=== PATIENT | male | born 1955 | race Caucasian/White ===

== ENCOUNTER 2020-02-23 06:07 | Outpatient (REF) | payer OTHER, SELFPAY ==
[2020-02-23 07:44] LABS: Cholesterol 227 mg/dL; HDL Cholesterol 43 mg/dL; LDL Cholesterol Calculated 160 mg/dl; Triglycerides 120 mg/dL
== END 2020-02-23 06:08 | disposition home or self-care (01) ==
LOC: HO.LAB 06:07
PROVIDERS: PCP Internal Medicine; Visit Provider Internal Medicine
DX: E78.5 Hyperlipidemia, unspecified (principal)
CPT/HCPCS: 80061

== ENCOUNTER 2020-05-22 06:23 | Outpatient (REF) | payer OTHER, SELFPAY ==
[2020-05-22 07:43] LABS: Cholesterol 240 mg/dL; HDL Cholesterol 41 mg/dL; LDL Cholesterol Calculated 174 mg/dl; Triglycerides 125 mg/dL
== END 2020-05-22 06:24 | disposition home or self-care (01) ==
LOC: HO.LAB 06:23
PROVIDERS: PCP Internal Medicine; Visit Provider Internal Medicine
DX: E11.9 Type 2 diabetes mellitus without complications (principal)
CPT/HCPCS: 36415; 80061

== ENCOUNTER 2020-07-01 13:45 | Outpatient (REF) | payer OTHER, SELFPAY ==
[2020-07-01 15:28] LABS: COVID-19 Test Negative (Negative)
== END 2020-07-01 13:46 | disposition home or self-care (01) ==
LOC: HO.LAB 13:45
PROVIDERS: Visit Provider Internal Medicine
DX: Z20.822 Contact with and (suspected) exposure to COVID-19 (principal)
CPT/HCPCS: 36415; 87635; C9803

== ENCOUNTER 2020-08-24 07:04 | Outpatient (REF) | payer OTHER, SELFPAY ==
[2020-08-24 08:07] LABS: Cholesterol 140 mg/dL; HDL Cholesterol 46 mg/dL; LDL Cholesterol Calculated 81 mg/dl; Triglycerides 65 mg/dL
== END 2020-08-24 07:05 | disposition home or self-care (01) ==
LOC: HO.LAB 07:04
PROVIDERS: PCP Internal Medicine; Visit Provider Internal Medicine
DX: E11.9 Type 2 diabetes mellitus without complications (principal)
CPT/HCPCS: 36415; 80061

== ENCOUNTER 2020-11-26 06:14 | Outpatient (REF) | payer OTHER, SELFPAY ==
[2020-11-26 08:33] LABS: Cholesterol 163 mg/dL; HDL Cholesterol 48 mg/dL; LDL Cholesterol Calculated 96 mg/dl; Triglycerides 99 mg/dL
== END 2020-11-26 06:15 | disposition home or self-care (01) ==
LOC: HO.LAB 06:14
PROVIDERS: PCP Internal Medicine; Visit Provider Internal Medicine
DX: E11.9 Type 2 diabetes mellitus without complications (principal)
CPT/HCPCS: 36415; 80061

== ENCOUNTER 2021-03-04 06:56 | Outpatient (REF) | payer OTHER, SELFPAY ==
[2021-03-04 07:47] LABS: Cholesterol 165 mg/dL; HDL Cholesterol 42 mg/dL; LDL Cholesterol Calculated 100 mg/dl; Triglycerides 118 mg/dL
== END 2021-03-04 06:57 | disposition home or self-care (01) ==
LOC: HO.LAB 06:56
PROVIDERS: PCP Internal Medicine; Visit Provider Internal Medicine
DX: E11.9 Type 2 diabetes mellitus without complications (principal)
CPT/HCPCS: 36415; 80061

== ENCOUNTER 2021-06-05 06:32 | Outpatient (REF) | payer OTHER, SELFPAY ==
[2021-06-05 07:50] LABS: Cholesterol 251 mg/dL; HDL Cholesterol 46 mg/dL; LDL Cholesterol Calculated 176 mg/dl; Triglycerides 146 mg/dL
== END 2021-06-05 06:33 | disposition home or self-care (01) ==
LOC: HO.LAB 06:32
PROVIDERS: PCP Internal Medicine; Visit Provider Internal Medicine
DX: Z00.00 Encounter for general adult medical examination without abnormal findings (principal)
CPT/HCPCS: 36415; 80061

== ENCOUNTER 2021-09-09 06:25 | Outpatient (REF) | payer OTHER, SELFPAY ==
[2021-09-09 06:34] LABS: MANUAL DIFF FLAG NO
[2021-09-09 07:29] LABS: Basophils Absolute Auto 0.1 X10*3/uL (0.0-0.2); Basophils Percent Auto 0.5 % (0-2); Eosinophils Absolute Auto 0.4 X10*3/uL (0.0-0.4); Eosinophils Percent Auto 3.9 % (0-4); Hematocrit 44.9 % (42.0-52.0); Hemoglobin 15.1 g/dl (14.0-18.0); Imm Gran Abs Auto 0.04 X10*3/uL (0.00-0.03); Imm Gran Pct Auto 0.4 % (0.0-0.4); Lymphocytes Absolute Auto 2.3 X10*3/uL (1.2-4.9); Lymphocytes Percent Auto 22.4 % (20-40); Mean Corpuscular HGB Conc 33.6 g/dl (31.0-36.0); Mean Corpuscular Hemoglobin 28.8 pg (27.0-33.0); Mean Corpuscular Volume 85.5 fL (80.0-98.0); Monocytes Absolute Auto 1.3 X10*3/uL (0.1-1.2); Monocytes Percent Auto 12.5 % (2-11); Neutrophils Absolute Auto 6.1 x10*3/uL (2.0-8.3); Neutrophils Percent Auto 60.3 % (45-73); Platelet Count 289 X10*3/uL (160-400); Red Blood Count 5.25 X10*6/uL (4.60-5.80); Red Cell Distribution Width 12.6 % (11.0-16.0)
[2021-09-09 08:03] LABS: Alanine Aminotransferase 92 U/L (0-40); Albumin Level 4.1 g/dL (3.5-5.0); Alkaline Phosphatase 55 U/L (39-117); Anion Gap 11 (12-20); Aspartate Amino Transferase 105 U/L (5-37); Bilirubin Total 0.8 mg/dL (0.0-1.0); Blood Urea Nitrogen 23 mg/dL (9-16); Calcium 8.9 mg/dL (8.4-10.2); Carbon Dioxide 23 mmol/L (22-29); Chloride 105 mmol/L (96-108); Cholesterol 149 mg/dL; Estimated Glomerular Filt Rate > 60; Glucose Fasting 111 mg/dL (60-99); HDL Cholesterol 39 mg/dL; LDL Cholesterol Calculated 91 mg/dl; Potassium 4.4 mmol/L (3.3-5.1); Sodium 135 mmol/L (135-145); Total Protein 7.5 g/dL (6.5-8.0); Triglycerides 97 mg/dL
[2021-09-09 08:13] LABS: Thyroid Stimulating Hormone 2.06 uIU/mL (0.32-4.0)
== END 2021-09-09 06:26 | disposition home or self-care (01) ==
LOC: HO.LAB 06:25
PROVIDERS: PCP Internal Medicine; Visit Provider Internal Medicine
DX: Z00.00 Encounter for general adult medical examination without abnormal findings (principal); Z13.0 Encounter for screening for diseases of the blood and blood-forming organs and certain disorders involving the immune mechanism
CPT/HCPCS: 36415; 80053; 80061; 84443; 85025

== ENCOUNTER 2021-09-10 09:14 | Outpatient (REF) | payer OTHER, SELFPAY | END 2021-09-10 09:15 | disposition home or self-care (01) | LOC: HO.LAB 09:14 | PROVIDERS: PCP Internal Medicine; Visit Provider Internal Medicine | DX: Z20.822 Contact with and (suspected) exposure to COVID-19 (principal); R09.89 Other specified symptoms and signs involving the circulatory and respiratory systems | CPT/HCPCS: U0003; U0005 ==

== ENCOUNTER → 2021-09-25 15:01 | Outpatient (BNVA) | payer OTHER, SELFPAY | PROVIDERS: PCP Internal Medicine; Visit Provider Surgery | DX: S00.85XA Superficial foreign body of other part of head, initial encounter (principal) | CPT/HCPCS: 99202 ==

== ENCOUNTER 2021-11-07 10:29 | Outpatient (REF) | payer OTHER, SELFPAY ==
[2021-11-07 10:35] VITALS: BP 130/61; PULSE 76; RESP 16; TEMP 36.9; O2SAT 97
[2021-11-07 10:38] VITALS: BMI 30.2
[2021-11-07 11:10] VITALS: BP 128/82; PULSE 63; RESP 16; O2SAT 99
--- NOTE | 2021-11-07 15:29 | P.OP_ITS ---
Operative Note Operative Note Date of Service: 11/07/21 Narrative: Preoperative diagnosis: Foreign body left forehead Postoperative diagnosis: Same Procedure: Excision of foreign body left forehead Surgeon: Connor Perez MD Surveying Or Spatial Science Technician: JACQUELINE Jalloh Anesthesia: Lidocaine 1% with epinephrine Indications for procedure: 66-year-old male patient presenting with a painful lump located over the left eyebrow in the forehead. 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 On examination the patient has a firm chronic appearing lump just above the eyebrow. Operative findings: No definite foreign body identified however firm, chronically inflamed tissue is evident in the left forehead. Specimen: Excision foreign body left forehead Estimated blood loss: Less than 1 mL Complications: None Procedure details: Patient was brought to the minor surgery suite placed in a supine position. The patient confirmed the site of the painful lump over the left eyebrow in the forehead. This was marked with a skin scribe. After confirmation of the site of surgery patient assured informed consent. Skin was then prepped with Betadine and draped in a sterile fashion. Local anesthesia was then infiltrated circumferentially around the palpable lesion. Elliptical incision oriented longitudinally over the eyebrow was then created with a scalpel. This was carried out through subcutaneous tissue and around the area of inflammation. This was passed off the table and sent to pathology for further examination. After assuring adequate hemostasis the skin was closed using interrupted 5 0 nylon sutures. Sterile dressings consisting of bacitracin ointment and a sterile Band-Aid were then applied. The patient tolerated the procedure well. He was discharged to home in stable condition.
== END 2021-11-07 10:30 | disposition home or self-care (01) ==
LOC: HO.MS 10:29
PROVIDERS: Visit Provider Surgery
PROC: (CPT 11442; principal; 2021-11-07 10:40)
DX: R22.9 Localized swelling, mass and lump, unspecified (principal); L57.0 Actinic keratosis; L57.8 Other skin changes due to chronic exposure to nonionizing radiation; L72.3 Sebaceous cyst
CPT/HCPCS: 11442; 88300; 88305; 88312

== ENCOUNTER → 2021-11-18 10:04 | Outpatient (BNVA) | payer OTHER, SELFPAY | PROVIDERS: PCP Internal Medicine; Referring Provider Internal Medicine; Visit Provider Surgery | DX: Z48.02 Encounter for removal of sutures (principal); Z87.2 Personal history of diseases of the skin and subcutaneous tissue | CPT/HCPCS: 99211 ==

== ENCOUNTER 2021-12-15 06:32 | Outpatient (REF) | payer OTHER, SELFPAY ==
[2021-12-15 07:57] LABS: Cholesterol 151 mg/dL; HDL Cholesterol 43 mg/dL; LDL Cholesterol Calculated 87 mg/dl; Triglycerides 106 mg/dL
== END 2021-12-15 06:33 | disposition home or self-care (01) ==
LOC: HO.LAB 06:32
PROVIDERS: PCP Internal Medicine; Visit Provider Internal Medicine
DX: E78.5 Hyperlipidemia, unspecified (principal)
CPT/HCPCS: 36415; 80061

== ENCOUNTER 2022-02-10 15:34 | Outpatient (REF) | payer OTHER, SELFPAY ==
--- NOTE | ~2022-02-10 | XR_ITS ---
EXAMINATION: XR FOOT, LEFT CLINICAL INFORMATION: Left foot pain. COMPARISON: None TECHNIQUE: AP, lateral, and oblique views of the left foot. FINDINGS: There is no acute fracture or dislocation. The tarsal bones are normally aligned. Very small plantar and retrocalcaneal spurs are noted. The soft tissues are unremarkable. XR/XR foot LT 2V IMPRESSION: Very small degenerative calcaneal spurs without overt acute abnormality.
== END 2022-02-10 15:35 | disposition home or self-care (01) ==
LOC: HO.LAB 15:34
PROVIDERS: PCP Internal Medicine; Visit Provider Internal Medicine
DX: M79.672 Pain in left foot (principal)
CPT/HCPCS: 73620

== ENCOUNTER 2022-03-05 07:02 | Outpatient (REF) | payer OTHER, SELFPAY ==
[2022-03-05 08:04] LABS: Cholesterol 161 mg/dL; HDL Cholesterol 48 mg/dL; LDL Cholesterol Calculated 93 mg/dl; Triglycerides 103 mg/dL
== END 2022-03-05 07:03 | disposition home or self-care (01) ==
LOC: HO.LAB 07:02
PROVIDERS: PCP Internal Medicine; Visit Provider Internal Medicine
DX: E78.5 Hyperlipidemia, unspecified (principal)
CPT/HCPCS: 36415; 80061

== ENCOUNTER 2022-07-29 06:55 | Outpatient (REF) | payer MEDICARE, MEDICAID, SELFPAY ==
--- NOTE | ~2022-07-29 | XR_ITS ---
EXAMINATION: XR SHOULDER, LEFT CLINICAL INFORMATION: Pain in left shoulder COMPARISON: None available. TECHNIQUE: AP external rotation, Grashey, scapular Y, and axillary views of the left shoulder. FINDINGS: The bones and soft tissues are normal. No fracture. Glenohumeral and acromioclavicular alignment is anatomic with normal joint space. No abnormal soft tissue calcifications. XR/XR shoulder LT min 2V IMPRESSION: Normal left shoulder.
== END 2022-07-29 06:56 | disposition home or self-care (01) ==
LOC: HO.HOSX 06:55
PROVIDERS: Visit Provider Physician Assistant
DX: M75.81 Other shoulder lesions, right shoulder (principal)
CPT/HCPCS: 20610; 73030; 99202; J1040

== ENCOUNTER 2022-09-23 11:20 | Outpatient (REF) | payer MEDICARE, SELFPAY | END 2022-09-23 11:21 | disposition home or self-care (01) | LOC: HO.MRI 11:20 | PROVIDERS: PCP Internal Medicine; Visit Provider Physician Assistant | DX: S46.002A Unspecified injury of muscle(s) and tendon(s) of the rotator cuff of left shoulder, initial encounter (principal) | CPT/HCPCS: 73221 ==

== ENCOUNTER 2022-10-07 09:39 | Outpatient (AMB) | payer MEDICARE, SELFPAY ==
[2022-10-07 09:40] VITALS: BP 138/80; PULSE 76; O2SAT 97; BMI 30.8
--- NOTE | 2022-10-07 09:40 | MHC.PC.OV ---
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: No Accompanied by: Self / Same As Patient Allergies moxifloxacin [From Avelox] Allergy (Mild, Verified 10/07/22 09:41) Hives acetaminophen [Percocet] Adverse Reaction (Unknown, Verified 10/07/22 09:41) vomiting oxycodone [Percocet] Adverse Reaction (Unknown, Verified 10/07/22 09:41) vomiting Medication List - Last Reconciled 10/07/22 by Lisandro Stewart MD atorvastatin 40 mg PO DAILY meloxicam 15 mg PO DAILY Tobacco use date assessed: 10/07/22 Fall risk assessment: No Falls in past year Last assessed Fall Risk: 10/07/22 Dental Screening Dental Screen Date: 10/07/22 Did you have a dental visit in the last 12 months?: Yes Did you have a dental problem in the last 6 months where you did not have access to dental care?: No Was dental information given to patient?: Patient has dentist HPI poison zane HPI Details poison zane on left arm [facility] Medical History History of inguinal hernia Hyperlipidemia Obesity Surgical History History of cystoscopy History of inguinal hernia repair History of knee surgery Family History Father Prostate cancer Mother CAD (coronary artery disease) Social History Housing: House Alcohol intake: never Patient Tobacco Use Status: Never used Tobacco e-Cigarette/Vaping Use: Never Used Second Hand Smoke Exposure: No service: No Current occupational status: employed Cognitive needs: No Hearing needs: No Vision needs: Yes (Glasses) Questionnaire PHQ-9 Over the last 2 weeks, how often have you been bothered by any of the following problems? 1. Little interest or pleasure in doing things: not at all 2. Feeling down, depressed, or hopeless: not at all 3. Trouble falling or staying asleep, or sleeping too much: not at all 4. Feeling tired or having little energy: not at all 5. Poor appetite or overeating: not at all 6. Feeling bad about yourself - or that you are a failure or have let yourself or your family down: not at all 7. Trouble concentrating on things, such as reading the newspaper or watching television: not at all 8. Moving or speaking so slowly that other people could have noticed. Or the opposite - being so fidgety or restless that you have been moving around a lot more than usual: not at all 9. Thoughts that you would be better off or of hurting yourself in some way: not at all Total score: 0 Depression Screening Interpretation: Negative Source: Developed by Drs. Cachorro Grant, Darby Farmer, Alonso Young and colleagues, with an educational roro from [employer]. Thrive Questionnaire Date Thrive assessed: 10/07/22 I am a: Patient What is your living situation today?: I have a steady place to live Within the past 12 months, did the food you bought not last and you didn't have the money to get more?: Never true Within the past 12 months, did you worry whether your food would run out before you got money to buy more?: Never true Do you have trouble paying for medicines?: No Do you have trouble getting transportation to medical appointments?: No Do you have trouble paying your heating and electricity bill?: No Do you have trouble taking care of your child, family member or friend?: No Do you have trouble with day-to-day activities such as bathing, preparing meals, shopping, managing finances, etc.?: No Are you currently unemployed and looking for a job?: No Are you interested in more education?: No Please select the resources that you would like help with: None Currently or been in a relationship where the following occur: no concerns reported AUDIT C Alcohol Use Questionnaire (AUDIT-C) 1. How often do you have a drink containing alcohol?: Never Total Score: 0 Score Reviewed/Action Taken: Yes JACQUES-7 AMB Questionnaire JACQUES-7 Date JACQUES - 7 assessed: 10/07/22 Feeling nervous, anxious, or on edge: 0 = Not at all Not being able to stop or control worryin = Not at all Worrying too much about different things: 0 = Not at all Trouble relaxin = Not at all Being so restless that it is hard to sit still: 0 = Not at all Becoming easily annoyed or irritable: 0 = Not at all Feeling afraid as if something awful might happen: 0 = Not at all Total JACQUES-7 score (0-4 normal; 5-9 mild; 10-14 moderate; 15-21 severe): 0 Source: Developed by Drs. Cachorro Grant, Darby Farmer, Alonso Young and colleagues, with an educational roro from [employer]. Review of Systems Const Denies chills, Denies headache(s) and Denies weight loss ENT Denies headache(s) Card Denies chest pain, Denies syncope, Denies irregular heart rhythm and Denies dyspnea Resp Denies chest congestion, Denies cough and Denies dyspnea GI Denies abdominal pain, Denies change in stool character, Denies nausea and Denies vomiting Musc Denies deformity and Denies joint swelling Neuro Denies syncope and Denies headache(s) Physical exam (Primary Care) Vital Signs: Last Vital Signs Pulse 76 10/07/22 09:40 BP 138/80 10/07/22 09:40 Pulse Ox 97 10/07/22 09:40 Oxygen Delivery Method Room Air 10/07/22 09:40 BMI result Body Mass Index 30.8 Tobacco/Smoking Status: Tobacco use Status Tobacco use date assessed 10/07/22 10/07/22 09:42 Patient Tobacco Use Status Never used Tobacco 10/07/22 09:42 e-Cigarette/Vaping Use Never Used 10/07/22 09:42 PHQ-9: PHQ-9 Score PHQ-9: Total score 0 10/07/22 09:42 Depression Screening Interpretation: Negative Thrive Assessment: Date of Thrive Assessment Date Thrive assessed 10/07/22 10/07/22 09:42 Currently or been in a relationship where the following occur: no concerns reported Const General: cooperative, comfortable and no acute distress Cardio Jugular venous distension: no JVD Rate: regular rate Rhythm: regular rhythm GI Inspection: Yes normal to inspection Skin Other: contact dermatitis left arm Extrem Other: hammer toe left foot Assessment and Plan Assessment & Plan (1) Contact dermatitis: Code(s): L25.9 - Unspecified contact dermatitis, unspecified cause Plan: rx sent Medications: New triamcinolone acetonide 0.5% 1 appl topical TID 15 grams 3RF methylprednisolone (Medrol (Fredy)) PO PER PKG DIR 21 ea 0RF Coding Level of Care Code Est Pt Level 3 (76493) Diagnoses Contact dermatitis L25.9 Additional Codes PHQ-9 - 96394 - PHQ-9 Billing: Y ([id number])
== END 2022-10-07 10:01 | disposition home or self-care (01) ==
PROVIDERS: PCP Internal Medicine; Visit Provider Internal Medicine
DX: L25.9 Unspecified contact dermatitis, unspecified cause (principal)
CPT/HCPCS: 99213

== ENCOUNTER 2022-11-09 08:40 | Outpatient (AMB) | payer MEDICARE, SELFPAY ==
--- NOTE | 2022-11-09 08:50 | A.OFFVIS_ITS ---
Intake Vital Signs 11/09/22 08:51 Height 5 ft 10 in Weight 215 lb BMI 30.8 Intake Visit Reasons: OV- MRI Review Left Shoulder Intake Note: Rehan is a 67 year old right hand dominant male who presents today with his for a left shoulder MRI review. In May of 2022 he was chopping wood when he felt a pop in his shoulder, last seen with Yesy on 07/29/22 and received an injection. This injection only gave releif for about 2 weeks. He would like to talk about other treatment options. He has completed physical therapy with mild relief. Allergies moxifloxacin [From Avelox] Allergy (Mild, Verified 10/07/22 09:41) Hives acetaminophen [Percocet] Adverse Reaction (Unknown, Verified 10/07/22 09:41) vomiting oxycodone [Percocet] Adverse Reaction (Unknown, Verified 10/07/22 09:41) vomiting HPI OV- MRI Review Left Shoulder HPI Details Rehan is a 67 year old man who presents for an MRI review of his left shoulder. He was last seen, and injected, on 07/29/22 by TYLER Gottlieb. 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 He complains of pain with daily activity, worse with behind back reaching activities, which he says radiates from his posterior shoulder down into his elbow. He says his worst pain is at night. He says his pain began in 05/2022, after he felt a painful popping sensation in his shoulder while chopping firewood. He says his injection gave him ~2 weeks of relief. He has been engaging in PT and performing at-home exercises, which he says is improving his pain and function. He would like to extend his course of PT. He takes NSAIDs but he says this is mostly in the mornings. [facility] Medical History History of inguinal hernia Hyperlipidemia Obesity Surgical History History of cystoscopy History of inguinal hernia repair History of knee surgery Family History Father Prostate cancer Mother CAD (coronary artery disease) Social History Housing: House Alcohol intake: never Patient Tobacco Use Status: Never used Tobacco e-Cigarette/Vaping Use: Never Used Second Hand Smoke Exposure: No service: No Current occupational status: employed Cognitive needs: No Hearing needs: No Vision needs: Yes (Glasses) Review of Systems Const All systems reviewed & are unremarkable except as noted in HPI and below Physical Exam Vital Signs: BMI result Body Mass Index 30.8 Const General: no acute distress, alert and awake Orientation/consciousness: patient oriented x3 HEENT Head: Yes normocephalic and Yes atraumatic Eyes EOM: EOMs intact bilaterally Resp Effort & Inspection: normal respiratory effort and able to speak in complete sentences Cardio Jugular venous distension: no JVD Skin General skin exam: turgor normal Rashes: no rashes Neuro General: patient oriented x3 Extrem Other: Left Shoulder: ER 30 degrees IR to hip pocket painful but - empty can + H&N Psych Appearance: grossly normal Affect: normal affect Attitude: cooperative Results Reviewed Results Reviewed: I personally reviewed relevant MR images 1.? Mild abnormality of the supraspinatus tendon compatible with tendinosis and small areas of partial tearing likely intrasubstance and possibly on the bursal side. But no measurable defect or tendon retraction. The fluid present within the subacromial subdeltoid bursa is likely reactive to this. ? 2.? Minimal abnormality of the musculotendinous junction of the infraspinatus likely sequela of a small area of interstitial partial tearing but no measurable defect or tendon retraction. ? 3.? Mild abnormality of the subscapularis compatible with tendinosis and small areas of partial tearing but no measurable defect. Mild muscle strain of the subscapularis. ? 4.? Mild arthrosis of the acromioclavicular joint. ? 5.? Mild subacromial subdeltoid bursitis. Assessment & Plan Assessment & Plan (1) Partial tear of left rotator cuff: Code(s): M75.112 - Incomplete rotator cuff tear or rupture of left shoulder, not specified as traumatic Plan: This is a 67 year old man with a small left shoulder RTC tear and ~5 months of improving pain. He has pain with daily activity, worse with overhead & behind back activities, which has been improving, though he continues to complain of pain at night affecting his sleep. He found mild relief from both PT and a previous steroid injection, and continues to perform at-home exercises. I discussed his diagnosis and treatment options. His symptoms are improving, he has good function, and his MRI does not show a significant tear. I recommend he continue with PT and at-home strengthening exercises, as well as NSAIDs. I ordered a repeat course of PT, he can follow up prn. Plan Scribed for Jose Sheets MD by Shyam Kapadia, medical technologist microbiology, on 11/09/22 at 9:10 AM, EST. Coding Level of Care Code Est Pt Level 4 (92176) Diagnoses Partial tear of left rotator cuff M75.112
[2022-11-09 08:51] VITALS: BMI 30.8
== END 2022-11-09 09:13 | disposition home or self-care (01) ==
PROVIDERS: PCP Internal Medicine; Visit Provider Orthopaedic Surgery
DX: M75.112 Incomplete rotator cuff tear or rupture of left shoulder, not specified as traumatic (principal); M19.012 Primary osteoarthritis, left shoulder
CPT/HCPCS: 99213

== ENCOUNTER → 2022-11-09 08:40 | Outpatient (BNVA) | payer MEDICARE, SELFPAY | PROVIDERS: PCP Internal Medicine; Visit Provider Orthopaedic Surgery ==

== ENCOUNTER 2022-11-20 08:00 | Outpatient (RCR) | payer MEDICARE, MEDICAID, SELFPAY ==
--- NOTE | 2022-09-30 10:25 | MHC.PT.EP ---
[facility] [place] Office [place] Office [place] Office [address] [phone] F: [phone] F: [phone] F: [phone] F: [phone] Physical Therapy Plan of Care Date of Evaluation: Date of Surgery: NA Diagnosis: Incomplete RTC tear or rupture of L shoulder, not specified as traumatic, partial tear of L rotator cuff Assessment: Rehan is a 67 yo male referred to PT for Incomplete RTC tear or rupture of L shoulder, not specified as traumatic, partial tear of L rotator cuff . On PT examination, signs and symptoms suggestive of supraspinatus and infraspinatus tendinopathy. Impairments include impaired L shoulder strength, decreased L shoulder ROM, TTP at medial scapular boarding, anterior shoulder pain, and TTP/pain at infraspinatus muscle. Functional limitations include inability to reach to backpocket, difficulty lifting objects, difficulty with dressings, inability to complete wood working. Pt needed to address aforementioned impairments and functional limitations. PT to include STM, IASTM, US, strengthening, ROM/stretching, postural education, pt education, and HEP. Frequency and Duration: The patient will be seen 2 x week for 4 weeks. Short Term Goals: In 2 weeks... 1. Pt will be I will all HEP 2. 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 1. Pt will have 50% less pain while dressing himself using L UE 2. Pt will increase L shoulder strength by 1 MMT in order to lift heavy objects for work Treatment Plan: Modalities to reduce pain, spasms and effusion. Manual therapy to restore motion and function. Therapeutic exercise to improve strength and flexibility. Neuromuscular re-education for posture and balance. Therapeutic activities to return to functional activities of daily living. Electronically signed by: Sonia Jarvis PT DPT Please sign and return to therapist. Thank you for your referral.
--- NOTE | 2022-11-20 15:00 | MHC.PT.DC ---
[facility] [place] Office [place] Office [place] Office [address]ry Burnett [address] [phone] F: [phone] F: [phone] F: [phone] F: [phone] Physical Therapy Discharge Report Diagnosis: Incomplete RTC tear or rupture of L shoulder, not specified as traumatic, partial tear of L rotator cuff Date of Surgery: NA Date of Evaluation: 09/29/22 Date of Discharge: 11/20/22 Treatments to Date: 14 Cancellations to Date: No Shows to Date: Discharge Status: Improved Function Independent with HEP Discharge Summary: Rehan has completed 14 PT visit has made significant improvements. He only has pain when he raises his arm up in abduction plane with his thumbs down. No pain noted with palm up position. He is independent with all HEP. He is therefore being d/c from PT and was advised to continue working on his HEP until complete resolution of symptoms. Electronically signed by: Sonia Jarvis PT DPT Please sign and return to therapist. Thank you for your referral.
== END 2022-11-20 15:00 | disposition home or self-care (01) ==
LOC: HO.PT 08:00
PROVIDERS: PCP Internal Medicine; Visit Provider Physician Assistant
DX: M75.112 Incomplete rotator cuff tear or rupture of left shoulder, not specified as traumatic (principal)
CPT/HCPCS: 97033; 97035; 97110; 97140; 97161

== ENCOUNTER 2023-02-19 08:03 | Outpatient (AMB) | payer MEDICARE, SELFPAY ==
[2023-02-19 08:49] VITALS: BP 132/70; PULSE 79; TEMP 37.1; O2SAT 97; BMI 30.8
--- NOTE | 2023-02-19 08:49 | MHC.OFFWIV ---
Intake Vital Signs 02/19/23 08:49 Height 5 ft 10 in Weight 215 lb BMI 30.8 BP 132/70 Blood Pressure Location Lt brachial Position Sitting Pulse 79 Pulse Source Pulse Oximeter Temp 98.8 F Temp Source Oral Pulse Oximetry (%) 97 Oxygen Delivery Method Room Air Intake Visit Reasons: EP, body ache, cough (masked) Intake Note: Pt is here today c/o cough and bodyaches 1.5 days Patient Tobacco Use Status: Never used Tobacco Allergies moxifloxacin [From Avelox] Allergy (Mild, Verified 02/19/23 08:50) Hives acetaminophen [Percocet] Adverse Reaction (Unknown, Verified 02/19/23 08:50) vomiting oxycodone [Percocet] Adverse Reaction (Unknown, Verified 02/19/23 08:50) vomiting HPI HPI Comments History of Present Illness Details This is a 67-year-old male who presents to the office today for sick visit. Patient complaining of viral URI symptoms such as congestion / rhinorrhea, sore throat, headaches, myalgias, dry cough, and mild shortness of breath x2 days. he denies any fevers or chills. He denies any chest pain. He denies any abdominal pain or nausea/ vomiting / diarrhea. He reports fatigue and malaise. [facility] Medical History History of inguinal hernia Hyperlipidemia Obesity Surgical History History of cystoscopy History of inguinal hernia repair History of knee surgery Family History Father Prostate cancer Mother CAD (coronary artery disease) Social History Housing: House Alcohol intake: never Patient Tobacco Use Status: Never used Tobacco e-Cigarette/Vaping Use: Never Used Second Hand Smoke Exposure: No service: No Current occupational status: employed Cognitive needs: No Hearing needs: No Vision needs: Yes (Glasses) Review of Systems Const All systems reviewed & are unremarkable except as noted in HPI and below Reports no additional complaints Eyes Reports no additional complaints ENT Reports no additional complaints Card Reports no additional complaints Resp Reports no additional complaints GI Reports no additional complaints Reports no additional complaints Musc Reports no additional complaints Skin/Breast Reports system reviewed and no additional complaints, except as documented Neuro Reports no additional complaints Psych Reports no additional complaints Endo Reports no additional complaints Jose Luis/Lymph Reports no additional complaints Aller/Immun Reports no additional complaints Physical Exam Vital Signs: Last Vital Signs Temp 98.8 F 02/19/23 08:49 Pulse 79 02/19/23 08:49 BP 132/70 02/19/23 08:49 Pulse Ox 97 02/19/23 08:49 Oxygen Delivery Method Room Air 02/19/23 08:49 BMI result Body Mass Index 30.8 Const Other: Vital signs reviewed. Constitutional: Non-toxic appearing. No acute distress. Well-developed and well-nourished. HEENT: Normocephalic and atraumatic. Tympanic membranes without erythema, edema, or bulging bilaterally. External auditory canals without erythema or edema bilaterally. Moist mucous membranes. Mild posterior pharyngeal erythema but no exudates. Skin: Warm and dry. No rashes or lesions noted. Neck: Full and painless range of motion. No cervical lymphadenopathy. Cardio: Regular rate and rhythm. No murmurs, gallops, or rubs. No lower extremity edema. No JVD. Pulmonary: No respiratory distress. No accessory muscle usage. Clear to auscultation bilaterally without wheezing, crackles, or rhonchi. Gastrointestinal: Soft, nontender, and nondistended in all 4 quadrants. Normoactive bowel sounds in all 4 quadrants. Genitourinary: No CVA tenderness. Musculoskeletal: Normal range of motion in joints throughout the body. No deformity or other signs of injury. Neuro: Alert and oriented x4. Cranial nerves 2-12 grossly intact. No focal deficits appreciated. Psych: Normal mood and affect. Assessment & Plan Assessment & Plan (1) Viral URI with cough: Code(s): J06.9 - Acute upper respiratory infection, unspecified Plan: This is a 67-year-old male who presents to the office complaining of viral URI symptoms x2 days. Patient presenting with signs and symptoms most consistent with acute upper respiratory tract infection. Recommended symptomatic management including rest, increased fluids, advil/tylenol for pain/fever, and over the counter throat lozenges/decongestants. Check COVID/flu/ RSV. Check chest x-ray to rule out pneumonia given mild shortness of breath. Patient's vital signs are stable, his physical exam is benign, and he is overall nontoxic appearing. Patient was reassured that this is very likely a self-limiting viral illness. Patient advised to follow up here or go to the emergency room for worsening/persistent symptoms. Patient verbalized understanding and is agreeable with the plan. Orders: Orders XR chest 2V Today R05.9 - Cough, unspecified Coding Level of Care Code Est Pt Level 3 (80685) Diagnoses Viral URI with cough J06.9
== END 2023-02-19 09:28 | disposition home or self-care (01) ==
PROVIDERS: PCP Internal Medicine; Visit Provider Physician Assistant Medical
DX: J06.9 Acute upper respiratory infection, unspecified (principal)
CPT/HCPCS: 99213

== ENCOUNTER 2023-02-19 09:09 | Outpatient (REF) | payer MEDICARE, SELFPAY ==
--- NOTE | ~2023-02-19 | XR_ITS ---
EXAMINATION: XR CHEST CLINICAL INFORMATION: Cough. COMPARISON: Chest 04/21/2018. TECHNIQUE: 2 views of the chest were obtained. FINDINGS: The lungs are fairly well-expanded with no acute pneumonic process seen. There is no pleural effusion or thickening. The heart size and pulmonary vascularity is normal. No gross bony abnormality seen. XR/XR chest 2V IMPRESSION: No acute cardiopulmonary process seen. No change from 04/21/2018.
[2023-02-19 12:58] LABS: Influenza A PCR NEGATIVE (Negative); Influenza B PCR NEGATIVE (Negative); Resp Syncy Virus RNA Qual PCR NEGATIVE (Negative); SARS COV2 PCR INHOUSE NEGATIVE (Negative)
== END 2023-02-19 09:10 | disposition home or self-care (01) ==
LOC: HO.HMGCX 09:09
PROVIDERS: PCP Internal Medicine; Visit Provider Physician Assistant Medical
DX: Z11.52 Encounter for screening for COVID-19 (principal); Z20.822 Contact with and (suspected) exposure to COVID-19; R05.9 Cough, unspecified; R09.89 Other specified symptoms and signs involving the circulatory and respiratory systems
CPT/HCPCS: 0241U; 71046

== ENCOUNTER 2023-03-25 11:26 | Outpatient (AMB) | payer MEDICARE, SELFPAY ==
--- NOTE | 2023-03-25 11:44 | MHC.OFFVIS ---
Intake Intake Visit Reasons: ov- left shoulder pain Intake Note: Rehan is a 67 year old right hand dominant male who presents today with his for a follow up for his partial tear of left rotator cuff. He reports he completed physical therapy, he reports limited range of motion and reports shaking in his left hand. During the night he is having difficulty sleeping. He has numbness and tingling in his left hand and tremors in his hand. He feels pain and swelling in his left shoulder. He was taking advil daily but recently stopped Allergies moxifloxacin [From Avelox] Allergy (Mild, Verified 03/25/23 11:52) Hives acetaminophen [Percocet] Adverse Reaction (Unknown, Verified 03/25/23 11:52) vomiting oxycodone [Percocet] Adverse Reaction (Unknown, Verified 03/25/23 11:52) vomiting Medication List - Last Reconciled 03/25/23 by Diana Roajs RN atorvastatin 40 mg PO DAILY triamcinolone acetonide 0.5% 1 appl topical TID HPI ov- left shoulder pain HPI Details Rehan is a 67 year old man who returns to discuss his left RTC tear. He was last injected, on 07/29/22 by TYLER Gottlieb. 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 He continues to have some pain with daily activity, worse with behind back reaching activities, which he says radiates from his posterior shoulder down into his elbow. He says his worst pain is at night. He has been engaging in PT and performing at-home exercises, which he says is improving his pain and function. He is also taking NSAIDs which have given him more relief. [facility] Medical History History of inguinal hernia Hyperlipidemia Obesity Surgical History History of cystoscopy History of inguinal hernia repair History of knee surgery Family History Father Prostate cancer Mother CAD (coronary artery disease) Social History Housing: House Alcohol intake: never Patient Tobacco Use Status: Never used Tobacco e-Cigarette/Vaping Use: Never Used Second Hand Smoke Exposure: No service: No Current occupational status: employed Cognitive needs: No Hearing needs: No Vision needs: Yes (Glasses) Review of Systems Const All systems reviewed & are unremarkable except as noted in HPI and below Physical Exam Const General: no acute distress, alert and awake Orientation/consciousness: patient oriented x3 HEENT Head: Yes normocephalic and Yes atraumatic Eyes EOM: EOMs intact bilaterally Resp Effort & Inspection: normal respiratory effort and able to speak in complete sentences Cardio Jugular venous distension: no JVD Skin General skin exam: turgor normal Rashes: no rashes Neuro General: patient oriented x3 Extrem Other: + Rodarte and Neer 4/5 EC neg lag 30/90/120/L5 pill rolling resting tremor left hand. neg Spurlings symetric strength bilkateral delt/bi/tri/wf/we/fa Psych Appearance: grossly normal Affect: normal affect Attitude: cooperative Office Procedures Joint Injection/Drain Joint Injection/Drain Details: Injected 1 mL of Decadron and 3 mL 1% lidocaine and 3 mL of 0.25% Marcaine. Site was prepped using aseptic technique. Patient tolerated the procedure well. Primary Site: left shoulder Approach Used: posterolateral Coding 85905 - Large joint Procedure code (CPT) selection complete Assessment & Plan Assessment & Plan (1) Partial tear of left rotator cuff: Code(s): M75.112 - Incomplete rotator cuff tear or rupture of left shoulder, not specified as traumatic Plan: Partial thickness RTC tear and ongoing left shoulder pain brian. at night. Injected left shoulder. Has a new onset resting tremor that is not related to his shoulder. PT ordered for shoulder exercises (2) Resting tremor: Code(s): G25.2 - Other specified forms of tremor Plan: Resting tremor that is new. Pill-rolling. I think there is some rigidity of the shoulder and neck but this is hard to differentiate from shoulder pain-related tightness. I do think he would benefit from evaluation by a neurologist as he clearly has a resting tremor that is pill-rolling and new onset. Plan Scribed for Jose Sheets MD by Shyam Kapadia, certified medical biller, on 03/25/23 at 11:50 AM, EST. Orders: Orders PT Evaluation and Treatment 03/25/23 M75.112 - Incomplete rotator cuff tear or rupture of left shoulder, not specified as traumatic Coding Level of Care Code Est Pt Level 4 (27871) Diagnoses Partial tear of left rotator cuff M75.112 Resting tremor G25.2 CPT Codes Coding - 28398 Large joint: 92105 - Large joint ([id number])
== END 2023-03-25 13:33 | disposition home or self-care (01) ==
PROVIDERS: PCP Internal Medicine; Visit Provider Orthopaedic Surgery
DX: M75.112 Incomplete rotator cuff tear or rupture of left shoulder, not specified as traumatic (principal)
CPT/HCPCS: 20610; 99214

== ENCOUNTER → 2023-03-25 11:26 | Outpatient (BNVA) | payer MEDICARE, SELFPAY | PROVIDERS: PCP Internal Medicine; Visit Provider Orthopaedic Surgery | DX: M75.112 Incomplete rotator cuff tear or rupture of left shoulder, not specified as traumatic (principal); G25.2 Other specified forms of tremor | CPT/HCPCS: 20610; 99212; J0665; J1100 ==

== ENCOUNTER 2023-04-01 10:40 | Outpatient (AMB) | payer MEDICARE, SELFPAY ==
[2023-04-01 10:43] VITALS: BP 130/72; PULSE 70; O2SAT 97; BMI 31.0
--- NOTE | 2023-04-01 10:43 | A.OFFPC_ITS ---
Vital Signs 04/01/23 10:43 Height 5 ft 10 in Weight 216 lb BMI 31.0 BP 130/72 Blood Pressure Location Lt brachial Position Sitting Pulse 70 Pulse Source Pulse Oximeter Pulse Oximetry (%) 97 Oxygen Delivery Method Room Air Intake Visit Reasons: Hand tremors/Discuss referral Medical Technical Writer Required: No Contact Lens Lathe Operator: Not Required per policy Accompanied by: Self / Same As Patient Allergies moxifloxacin [From Avelox] Allergy (Mild, Verified 04/01/23 10:44) Hives acetaminophen [Percocet] Adverse Reaction (Unknown, Verified 04/01/23 10:44) vomiting oxycodone [Percocet] Adverse Reaction (Unknown, Verified 04/01/23 10:44) vomiting Medication List - Last Reconciled 04/01/23 by Lisandro Stewart MD atorvastatin 40 mg PO DAILY triamcinolone acetonide 0.5% 1 appl topical TID Tobacco use date assessed: 04/01/23 Fall risk assessment: No Falls in past year Last assessed Fall Risk: 04/01/23 Dental Screening Dental Screen Date: 04/01/23 Did you have a dental visit in the last 12 months?: Yes Did you have a dental problem in the last 6 months where you did not have access to dental care?: No Was dental information given to patient?: Patient has dentist HPI Hand tremors/Discuss referral HPI Details resting treor left handfor a few months PFSH Medical History Obesity Hyperlipidemia History of inguinal hernia Surgical History History of inguinal hernia repair History of cystoscopy History of knee surgery Family History Father Prostate cancer Mother CAD (coronary artery disease) Social History Housing: House Alcohol intake: never Patient Tobacco Use Status: Never used Tobacco e-Cigarette/Vaping Use: Never Used Second Hand Smoke Exposure: No service: No Current occupational status: employed Cognitive needs: No Hearing needs: No Vision needs: Yes (Glasses) Questionnaire PHQ-9 Over the last 2 weeks, how often have you been bothered by any of the following problems? 1. Little interest or pleasure in doing things: not at all 2. Feeling down, depressed, or hopeless: not at all 3. Trouble falling or staying asleep, or sleeping too much: not at all 4. Feeling tired or having little energy: not at all 5. Poor appetite or overeating: not at all 6. Feeling bad about yourself - or that you are a failure or have let yourself or your family down: not at all 7. Trouble concentrating on things, such as reading the newspaper or watching television: not at all 8. Moving or speaking so slowly that other people could have noticed. Or the opposite - being so fidgety or restless that you have been moving around a lot more than usual: not at all 9. Thoughts that you would be better off or of hurting yourself in some way: not at all Total score: 0 Depression Screening Interpretation: Negative Depression Screening Done: Yes Source: Developed by Drs. Cachorro Grant, Darby Farmer, Alonso Young and colleagues, with an educational roro from [employer]. Thrive Questionnaire Date Thrive assessed: 04/01/23 I am a: Patient What is your living situation today?: I have a steady place to live Within the past 12 months, did the food you bought not last and you didn't have the money to get more?: Never true Within the past 12 months, did you worry whether your food would run out before you got money to buy more?: Never true Do you have trouble paying for medicines?: No Do you have trouble getting transportation to medical appointments?: No Do you have trouble paying your heating and electricity bill?: No Do you have trouble taking care of your child, family member or friend?: No Do you have trouble with day-to-day activities such as bathing, preparing meals, shopping, managing finances, etc.?: No Are you currently unemployed and looking for a job?: No Are you interested in more education?: No Please select the resources that you would like help with: None AUDIT C Alcohol Use Questionnaire (AUDIT-C) 1. How often do you have a drink containing alcohol?: Never Total Score: 0 Score Reviewed/Action Taken: Yes JACQUES-7 AMB Questionnaire JACQUES-7 Date JACQUES - 7 assessed: 04/01/23 Feeling nervous, anxious, or on edge: 0 = Not at all Not being able to stop or control worryin = Not at all Worrying too much about different things: 0 = Not at all Trouble relaxin = Not at all Being so restless that it is hard to sit still: 0 = Not at all Becoming easily annoyed or irritable: 0 = Not at all Feeling afraid as if something awful might happen: 0 = Not at all Total JACQUES-7 score (0-4 normal; 5-9 mild; 10-14 moderate; 15-21 severe): 0 Source: Developed by Drs. Cachorro Grant, Darby Farmer, Alonso Young and colleagues, with an educational roro from [employer]. Review of Systems Const Denies chills, Denies headache(s) and Denies weight loss ENT Denies headache(s) Card Denies chest pain, Denies syncope, Denies irregular heart rhythm and Denies dyspnea Resp Denies chest congestion, Denies cough and Denies dyspnea GI Denies abdominal pain, Denies change in stool character, Denies nausea and Denies vomiting Musc Denies deformity and Denies joint swelling Neuro Denies syncope and Denies headache(s) Physical exam (Primary Care) Vital Signs: Last Vital Signs Pulse 70 04/01/23 10:43 BP 130/72 04/01/23 10:43 Pulse Ox 97 04/01/23 10:43 Oxygen Delivery Method Room Air 04/01/23 10:43 BMI result Body Mass Index 31.0 Tobacco/Smoking Status: Tobacco use Status Tobacco use date assessed 04/01/23 04/01/23 10:45 Patient Tobacco Use Status Never used Tobacco 04/01/23 10:43 e-Cigarette/Vaping Use Never Used 04/01/23 10:43 PHQ-9: PHQ-9 Score PHQ-9: Total score 0 04/01/23 10:45 Depression Screening Interpretation: Negative Thrive Assessment: Date of Thrive Assessment Date Thrive assessed 04/01/23 04/01/23 10:45 Const General: cooperative, comfortable, no acute distress and alert Neck Neck: Yes no lymphadenopathy Thyroid: Thyroid normal Resp Effort & Inspection: normal respiratory effort Auscultation: clear to auscultation bilaterally Percussion: percussion normal Cardio Jugular venous distension: no JVD Palpation: normal PMI Rate: regular rate Rhythm: regular rhythm Heart sounds: S1 normal heart sound present and S2 normal heart sound present GI Inspection: Yes normal to inspection Palpation (GI): No hepatosplenomegaly present Skin General skin exam: no rashes or lesions noted Extrem General: Yes no clubbing, cyanosis or edema Assessment and Plan Assessment & Plan (1) Tremors of nervous system: Code(s): R25.1 - Tremor, unspecified Plan: ref neuro Orders: Referrals Neurology Referral R25.1 - Tremor, unspecified Coding Level of Care Code Est Pt Level 3 (73017) Diagnoses Tremors of nervous system R25.1 Additional Codes PHQ-9 - 06991 - PHQ-9 Billing: ([id number])
== END 2023-04-01 11:05 | disposition home or self-care (01) ==
PROVIDERS: PCP Internal Medicine; Visit Provider Internal Medicine
DX: R25.1 Tremor, unspecified (principal)
CPT/HCPCS: 99213

== ENCOUNTER 2023-04-21 07:19 | Outpatient (REF) | payer MEDICARE, SELFPAY ==
--- NOTE | ~2023-04-21 | MR_ITS ---
EXAMINATION: MR BRAIN WITHOUT CONTRAST CLINICAL INFORMATION: Parkinson's disease. COMPARISON: None. TECHNIQUE: Multiplanar, multisequence imaging of the brain was performed without contrast. FINDINGS: No diffusion abnormalities are identified to suggest an acute infarct. No mass effect or midline shift is seen. There is mipd-aq-pdbigiup generalized brain parenchymal volume loss with concordant ex vacuo prominence of the ventricles. Nonspecific mild scattered white matter signal changes may be due to chronic microangiopathy. No extra-axial fluid collections are seen. The brainstem and cerebellum are normal. The gradient refocused acquisition is normal. The craniovertebral junction, marrow signal, and midline structures are normal. The major intracranial flow voids at the level of the [place] are preserved. The dural venous sinus flow voids are maintained. Mild amount of fluid in the mastoid air cells bilaterally. Mild mucosal thickening visible in the frontal, ethmoid, and sphenoid sinuses. MR/MR head/brain wo con IMPRESSION: No acute intracranial process. Gkcw-eq-wlhdxgzh generalized brain parenchymal volume loss and mild chronic white matter microangiopathy.
== END 2023-04-21 07:20 | disposition home or self-care (01) ==
LOC: HO.MRI 07:19
PROVIDERS: PCP Internal Medicine; Visit Provider Psychiatry & Neurology Neurology
DX: G20.A1 Parkinson's disease without dyskinesia, without mention of fluctuations (principal)
CPT/HCPCS: 70551

== ENCOUNTER → 2023-05-17 13:57 | Outpatient (REF) | payer MEDICARE, SELFPAY | LOC: HO.SL 13:57 | PROVIDERS: PCP Internal Medicine; Visit Provider Psychiatry & Neurology Neurology | DX: G47.33 Obstructive sleep apnea (adult) (pediatric) (principal) | CPT/HCPCS: 95806 ==

== ENCOUNTER → 2023-05-17 19:00 | Outpatient (BNV) | payer MEDICARE, SELFPAY | PROVIDERS: PCP Internal Medicine; Visit Provider Internal Medicine | DX: R06.83 Snoring (principal) | CPT/HCPCS: 95806 ==

== ENCOUNTER 2023-05-21 08:00 | Outpatient (RCR) | payer MEDICARE, SELFPAY ==
--- NOTE | 2023-04-19 14:00 | MHC.PT.EP ---
[facility] [place] Office [place] Office [place] Office [address] [phone] F: [phone] F: [phone] F: [phone] F: [phone] Physical Therapy Plan of Care Date of Evaluation: 04/19/23 Date of Surgery: Diagnosis: PARTIAL TEAR LEFT ROTATOR CUFF (NON SURGICAL) Assessment: 67 YO MALE REF TO PT WITH H/O INITIAL PARTIAL TEAR LEFT ROTATOR CUFF (NON SURGICAL) IN MARCH 2022 WITH 2 PREVIOUS COURSES OF PT FOR LEFT SH PAIN. THE Pt WORKS FULL-TIME A [employer] AND HE IS Rt HAND DOMINANT- 3 MONTHS AGO HE HAD ONSET OF PILL-ROLLING TYPE TREMOR AND NUMBNESS IN LEFT PALM-> HE IS BEING FOLLOWED IN NEUROLOGY. THE Pt HAS LIMITED ROM Lt SH AND WRIST, (+) POST RC / SCAP STRENGTH DEFICITS, (+) TISSUE TENSION IN PECT /UT MM, PAIN IN HIS LEFT SH AND SCAPULA, AND (+) TOS/ SH IMPINGEMENT/? CARPAL TUNNEL FINDINGS Lt. FUNCTIONALLY, THE Pt IS LIMITED WITH ADLs/WORK TASKS > SH HEIGHT, SLEEPING IN SL, CARRYING/LIFTING OBJECTS , AND ADLs REQ SH IR/ER. THE Pt WOULD BENEFIT FROM PT TO ADDRESS SOFT TISSUE RESTRICTION, MONITOR RE TOS / POSSIBLE CARPAL TUNNEL SXS, AND RE-VAMP HEP. Frequency and Duration: The patient will be seen 2 x WK x 4 WKS Short Term Goals: *DECREASE TISSUE TENSION LEFT SH COMPLEX-> Lt UE IMPROVE AROM Lt UE *ENHANCE POSTERIOR RC/ SCAP MM ACTIV *DECR PAIN IN Lt UE TO 2-3 /10 Fdc Goals: *Lt UE RADIC SXS REDUCED BY 75% *STRENGTH GAINS BY 1 GRADE IN Lt SH COMPLEX *Pt PERFORM ADLs AND WORK TASKS W/O EXACERB SXS EVIDENT W IMPROVED SPADI SCORE (104/130) Treatment Plan: Modalities to reduce pain, spasms and effusion. Manual therapy to restore motion and function. Therapeutic exercise to improve strength and flexibility. Neuromuscular re-education for posture and balance. Therapeutic activities to return to functional activities of daily living. Electronically signed by: JAYESH RYDER,PT Please sign and return to therapist. Thank you for your referral.
--- NOTE | 2023-05-21 09:48 | MHC.PT.DC ---
[facility] [place] Office [place] Office [place] Office [address]ry Burn[address] [phone] F: [phone] F: [phone] F: [phone] F: [phone] Physical Therapy Discharge Report Diagnosis: PARTIAL TEAR LEFT ROTATOR CUFF (NON SURGICAL) Date of Surgery: Date of Evaluation: 04/19/23 Date of Discharge: 05/21/23 Treatments to Date: 9 Cancellations to Date: 0 No Shows to Date: 0 Discharge Status: Achieved Goals Improved Function Independent with HEP Discharge Summary: THE Pt HAS PROGRESSED AND BENEFITTED FROM PHYSICAL THERAPY INTERVENTION EVIDENT WITH IMPROVED AROM, INCREASED STRENGTH IN RC/SCAP MM, INDEP POSTURAL CORRECTION, AND INCREASED ADL TOLERANCE. THE Pt BENEFITTED FROM PERF Lt WRIST FLEXOR STRETCHING EXER- HE HAS SOME SXS IN EARLY AM DUE TO HABITUAL LEFT SL SLEEPING POSTURE. HE IS INDEP W HEP AND WE EDUC HIM RE CONT WITH THER EXER FOR Lt UE, INCLUDING WRIST FLEXORS. HE IS SCHED FOR AN ORTHO F/U NEXT WEEK REGARDING LEFT CTS . HIS SPADI WAS 104/130 AT EVAL AND 36/130 AT DISCHARGE. Electronically signed by: JAYESH RYDER,PT Please sign and return to therapist. Thank you for your referral.
== END 2023-05-21 09:49 | disposition home or self-care (01) ==
LOC: HO.PT 08:00
PROVIDERS: PCP Internal Medicine; Visit Provider Orthopaedic Surgery
DX: M75.112 Incomplete rotator cuff tear or rupture of left shoulder, not specified as traumatic (principal)
CPT/HCPCS: 97110; 97140; 97162; 97530

== ENCOUNTER 2023-05-25 13:22 | Outpatient (AMB) | payer MEDICARE, SELFPAY ==
[2023-05-25 13:27] VITALS: BMI 31.0
--- NOTE | 2023-05-25 13:27 | MHC.OFFVIS ---
Intake Vital Signs 05/25/23 13:27 Height 5 ft 10 in Weight 216 lb BMI 31.0 Intake Visit Reasons: new Prob- Left CTS Intake Note: Rehan 67 yr old right hand dominant male presents today for a new patient problem for his left CTS. States his symptoms started about 3-4 months ago and has worsen. States his symptoms are worse at night time and in the morning. States numbness comes and goes thought out the day time. He explains his palm is itchy at times as well. Denies using brace, O.T, injection or recent injury. Allergies moxifloxacin [From Avelox] Allergy (Mild, Verified 05/25/23 13:46) Hives acetaminophen [Percocet] Adverse Reaction (Unknown, Verified 05/25/23 13:46) vomiting oxycodone [Percocet] Adverse Reaction (Unknown, Verified 05/25/23 13:46) vomiting HPI new Prob- Left CTS HPI Details Rehan is a 67 year old right hand dominant Diabetic man who presents to discuss his left carpal tunnel syndrome. He is here with his Johana, who used to work here at [facility]. He complains of several months of numbness in his left thumb, index, and middle fingers. 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 He denies any prior treatment He complains of ongoing left shoulder pain for ~1 year. He has been working with PT and has been seen by Dr. Sheets in the past for this. 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 Colón for a left arm tremor. He has an appointment for a brain MRI to assess for possible Parkinson's [facility] Medical History Obesity Hyperlipidemia History of inguinal hernia Surgical History History of inguinal hernia repair History of cystoscopy History of knee surgery Family History Father Prostate cancer Mother CAD (coronary artery disease) Social History (Updated 05/25/23 @ 13:48 by Jazzy Zuñiga [facility]) Housing: House Alcohol intake: never Patient Tobacco Use Status: Never used Tobacco e-Cigarette/Vaping Use: Never Used Second Hand Smoke Exposure: No service: No Current occupational status: employed 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 Cognitive needs: No Hearing needs: No Vision needs: Yes (Glasses) Review of Systems Const All systems reviewed & are unremarkable except as noted in HPI and below Physical Exam Vital Signs: BMI result Body Mass Index 31.0 Const General: cooperative, healthy appearing and no acute distress Orientation/consciousness: patient oriented x3 HEENT Head: Yes normocephalic and Yes atraumatic Eyes EOM: EOMs intact bilaterally Resp Effort & Inspection: normal respiratory effort and able to speak in complete sentences Cardio Jugular venous distension: no JVD Skin General skin exam: turgor normal Rashes: no rashes Neuro General: patient oriented x3 Extrem Other: Evaluation of Left Upper Extremity: The patient is alert, oriented, and in no acute distress Neuro: Median, Ulnar, Radial nerves motor and sensory intact and sensation is normal to the tips of all digits No thenar or intrinsic wasting Vascular: Cap refill brisk ROM: He can make a fist and extend all his digits No locking or catching Skin: No lacerations or abrasions. General: No Ecchymosis. No Erythema or evidence of infection. Nerve Conduction Study: Left side only Mild to moderate left carpal tunnel syndrome Dr. Colón 04/15/23 Please see the report for additional details as necessary Psych Appearance: grossly normal Affect: normal affect Attitude: cooperative Assessment & Plan Assessment & Plan (1) Carpal tunnel syndrome of left wrist: Code(s): G56.02 - Carpal tunnel syndrome, left upper limb (2) Tremors of nervous system: Code(s): R25.1 - Tremor, unspecified Plan Assessment & Plan: 1. Left carpal tunnel syndrome, mild-moderate Symptoms intermittent, but nightly I educated him about this condition I discussed operative and non-operative treatment options The patient would like to proceed with surgery The risks and benefits of operative treatment were discussed with the patient and the patient wishes to proceed with surgery. These risks include, but are not limited to risk of damage to blood vessels, nerves, tendons, infection, recurrence, incomplete relief of preoperative symptoms, persistent pain, possible need for further surgery and the risks associated with regional blocks and anesthesia. The plan is to take the patient to the operating room sometime in the next few weeks for the following procedures: 1. Left carpal tunnel syndrome, under local All of the preoperative paperwork including the consent was reviewed today. All the patient's questions were answered. The patient understands that they will be contacted by our reliability technician soon to schedule this procedure He denies Diabetes, blood thinners, asthma, heart, lung, kidney issues He has Parkinson's disease Scribed for Estela Conteh MD by Shyam Kapadia medical charge entry specialist, on 05/25/23 at 2:20 PM, EST. Coding Level of Care Code New Pt Level 4 (10177) Diagnoses Carpal tunnel syndrome of left wrist G56.02 Tremors of nervous system R25.1
== END 2023-05-25 14:32 | disposition home or self-care (01) ==
PROVIDERS: PCP Internal Medicine; Visit Provider Orthopaedic Surgery
DX: G56.02 Carpal tunnel syndrome, left upper limb (principal); R25.1 Tremor, unspecified
CPT/HCPCS: 99214

== ENCOUNTER → 2023-05-25 13:22 | Outpatient (BNVA) | payer MEDICARE, SELFPAY | PROVIDERS: PCP Internal Medicine; Visit Provider Orthopaedic Surgery | DX: G56.02 Carpal tunnel syndrome, left upper limb (principal); R25.1 Tremor, unspecified | CPT/HCPCS: 99212 ==

== ENCOUNTER 2023-07-09 08:09 | Outpatient (AMB) | payer MEDICARE, SELFPAY ==
--- NOTE | 2023-07-09 08:10 | A.OFFVIS_ITS ---
Vital Signs 07/09/23 08:11 Height 5 ft 10 in Weight 216 lb BMI 31.0 Intake Visit Reasons: Newprob- RT shoulder pain Intake Note: Rehan is a 67 year old right hand dominant male who presents today for a new problem visit with complaints of right shoulder pain. Allergies moxifloxacin [From Avelox] Allergy (Mild, Verified 05/25/23 13:46) Hives acetaminophen [Percocet] Adverse Reaction (Unknown, Verified 05/25/23 13:46) vomiting oxycodone [Percocet] Adverse Reaction (Unknown, Verified 05/25/23 13:46) vomiting HPI HPI Newprob- RT shoulder pain: Details: 67-year-old right hand dominant male who presents to the office today for evaluation of right shoulder pain after he sustained a fall and injured his right shoulder. he states he was walking on a wet deck when he slipped and fell landing on the right side. He states he has pain in his right shoulder which is aggravated with overhead reaching. He also c/o limited ROM in his shoulder. Unable to lift the arm. 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 Cognitive needs: No Hearing needs: No Vision needs: Yes (Glasses) Review of Systems Const All systems reviewed & are unremarkable except as noted in HPI and below Physical Exam Vital Signs: BMI result Body Mass Index 31.0 Extrem Other: Right shoulder: Normal to inspection. No bony prominence over the AC joint and no tenderness. He has tenderness along proximal aspect of the shoulder and significant swelling at the proximal bicep tendon region. He has pain with RTC strength testing. No pain along the distal bicep tendon. No muscle defects. NVI. Results Reviewed Results Reviewed: Xrays were obtained in the office today and personally reviewed by me of the right shoulder are negative for acute fracture or dislocation Assessment & Plan Assessment & Plan (1) Traumatic injury of right shoulder: Code(s): S49.91XA - Unspecified injury of right shoulder and upper arm, initial encounter Category: Medical (2) Injury of right rotator cuff: Code(s): S46.001A - Unspecified injury of muscle(s) and tendon(s) of the rotator cuff of right shoulder, initial encounter Category: Medical Plan Given the extent of his injury and limitations on exam an MSTAT MRI of the right shoulder was ordered to further evaluate the soft tissues and RTC structures. I recommend icing and modifying activities and taking Advil over the weekend. We will discuss the results once the scan is complete. Orders: Orders XR shoulder RT min 2V Today M25.511 - Pain in right shoulder MR shoulder RT wo con Today M77.8 - Other enthesopathies, not elsewhere classified Patient Instructions: Scribed for Yesy Gottlieb PA-C, by Ronaldo Marquez medical laboratory technicians, on 07/09/2023 at 8:15 AM EST. I, Yesy Gottlieb PA-C, have personally reviewed and agree with the information entered by the scribe.
[2023-07-09 08:11] VITALS: BMI 31.0
== END 2023-07-09 08:41 | disposition home or self-care (01) ==
PROVIDERS: PCP Internal Medicine; Visit Provider Physician Assistant
DX: S49.91XA Unspecified injury of right shoulder and upper arm, initial encounter (principal); S46.001A Unspecified injury of muscle(s) and tendon(s) of the rotator cuff of right shoulder, initial encounter
CPT/HCPCS: 99213

== ENCOUNTER 2023-07-09 08:09 | Outpatient (REF) | payer MEDICARE, SELFPAY ==
--- NOTE | ~2023-07-09 | XR_ITS ---
EXAMINATION: XR SHOULDER, RIGHT CLINICAL INFORMATION: Shoulder pain COMPARISON: None available. TECHNIQUE: 3 views of the right shoulder. FINDINGS: No fracture. Glenohumeral and acromioclavicular alignment is anatomic with normal joint space. No abnormal soft tissue calcifications. XR/XR shoulder RT min 2V IMPRESSION: No acute osseous abnormality
== END 2023-07-09 08:10 | disposition home or self-care (01) ==
LOC: HO.HOSX 08:09
PROVIDERS: PCP Internal Medicine; Visit Provider Physician Assistant
DX: S49.91XA Unspecified injury of right shoulder and upper arm, initial encounter (principal); S46.001A Unspecified injury of muscle(s) and tendon(s) of the rotator cuff of right shoulder, initial encounter; M77.8 Other enthesopathies, not elsewhere classified; W01.0XXA Fall on same level from slipping, tripping and stumbling without subsequent striking against object, initial encounter; Y93.9 Activity, unspecified; Y92.9 Unspecified place or not applicable; Y99.9 Unspecified external cause status
CPT/HCPCS: 73030; 99212

== ENCOUNTER 2023-07-12 12:54 | Outpatient (REF) | payer MEDICARE, SELFPAY ==
--- NOTE | ~2023-07-12 | MR_ITS ---
EXAMINATION: MR SHOULDER WITHOUT CONTRAST, RIGHT CLINICAL INFORMATION: Fall 3-4 days ago. Decreased range of motion. COMPARISON: None available. TECHNIQUE: MRI of the shoulder without contrast was performed on a high-field scanner. FINDINGS: ROTATOR CUFF: A full-thickness tear of the supraspinatus and subscapularis tendons measures 4 cm AP/CC, involving three quarters of the subscapularis tendon as well as the full AP diameter of the supraspinatus tendon. Partial-thickness articular-sided tearing is possible at the anterior fibers of the infraspinatus, though the majority of the infraspinatus tendon remains intact. Teres minor is intact. There is grade 1 fatty replacement at the rotator cuff musculature without significant loss of muscle bulk. BICEPS: The tendon of the long head of the biceps is medially dislocated from the bicipital groove, superficial to the remaining intact fibers of the subscapularis tendon. There is associated tendinosis with a focal partial tear where the tendon crosses over the intact subscapularis fibers. CORACOACROMIAL ARCH: The undersurface of the acromion is minimally curved with anterolateral subacromial spurring. Tyov-sj-vgivvmwk acromioclavicular osteoarthritis. LABRUM/CAPSULE: Labrum is intact. Joint capsule is normal at the axillary pouch. As noted above, the rotator cuff tear propagates through the rotator interval structures, disrupting the coracohumeral, superior glenohumeral, and middle glenohumeral ligaments. GLENOHUMERAL JOINT/MARROW: Minimal chondral thinning at the humeral head anterosuperiorly. Minimal subcortical edema at the supraglenoid tubercle. Subcortical cystic change and edema at the greater tuberosity is likely reactive to overlying tendinopathy. No fracture or malalignment. Moderate-sized joint effusion propagates through the rotator cuff defect into the subacromial-subdeltoid bursa and subcoracoid bursa. MR/MR shoulder RT wo con IMPRESSION: 1. A large 4 cm (AP/CC) full-thickness tear of the supraspinatus and subscapularis tendons. 2. Medial dislocation of the biceps tendon from the bicipital groove with associated tendinosis and a partial tear. 3. Zvnt-xu-[id number] acromioclavicular and minimal glenohumeral osteoarthritis. Anterior subacromial spurs. 4. Moderate-sized joint effusion.
== END 2023-07-12 12:55 | disposition home or self-care (01) ==
LOC: HO.MRI 12:54
PROVIDERS: PCP Internal Medicine; Visit Provider Internal Medicine
DX: M77.8 Other enthesopathies, not elsewhere classified (principal)
CPT/HCPCS: 73221

== ENCOUNTER 2023-07-14 12:18 | Outpatient (AMB) | payer MEDICARE, SELFPAY ==
--- NOTE | 2023-07-14 12:28 | A.OFFVIS_ITS ---
Vital Signs 07/14/23 12:29 Height 5 ft 10 in Weight 216 lb BMI 31.0 Intake Visit Reasons: Preop LT CTR 07/29/23 AR Intake Note: Rehan is a 67 year old male who presents today for a pre op appointment, booked for left CTR 07/29/23. He expresses concern that he injured his shoulder and he is unsure if he should reschedule his left CTR as he does not want to be disabled Allergies moxifloxacin [From Avelox] Allergy (Mild, Verified 07/14/23 12:30) Hives acetaminophen [Percocet] Adverse Reaction (Unknown, Verified 07/14/23 12:30) vomiting oxycodone [Percocet] Adverse Reaction (Unknown, Verified 07/14/23 12:30) vomiting HPI HPI Preop LT CTR 07/29/23 AR: Details: Rehan is a 67 year old right hand dominant Diabetic man who presents to discuss his left carpal tunnel syndrome. He is here with his Johana, who used to work here at [employer] [place]. He complains of several months of numbness in his left index, middle, and ring fingers. 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 He says he recently injured his right shoulder, after a fall last week. He is concerned that he may be disabled or limited in his function if he proceeds with surgery and wants to discuss if he should reschedule. He was just seen by Yesy immediately prior to this appointment for a right shoulder MRI review. 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 He has been seen by Dr. Colón for a left arm tremor and Parkinson's assessment. 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 Cognitive needs: No Hearing needs: No Vision needs: Yes (Glasses) Physical Exam Vital Signs: BMI result Body Mass Index 31.0 Extrem Other: Evaluation of Left Upper Extremity: The patient is alert, oriented, and in no acute distress Neuro: Decreased subjective sensation in the median nerve distribution & ring finger today in clinic. Normal sensation in the small finger No thenar or intrinsic wasting Good APB muscle belly firing & good finger cross Vascular: Cap refill brisk ROM: He can make a fist and extend all his digits No locking or catching Nerve Conduction Study: Left side only Mild to moderate left carpal tunnel syndrome Dr. Colón 04/15/23 Please see the report for additional details as necessary Assessment & Plan Assessment & Plan (1) Carpal tunnel syndrome of left wrist: Code(s): G56.02 - Carpal tunnel syndrome, left upper limb Category: Medical (2) Tremors of nervous system: Code(s): R25.1 - Tremor, unspecified Category: Medical Plan Assessment & Plan: 1. Left carpal tunnel syndrome, mild-moderate Symptoms intermittent, but daily, worse at night I educated him about this condition I discussed operative and non-operative treatment options The patient would like to proceed with surgery The risks and benefits of operative treatment were discussed with the patient and the patient wishes to proceed with surgery. These risks include, but are not limited to risk of damage to blood vessels, nerves, tendons, infection, recurrence, incomplete relief of preoperative symptoms, persistent pain, possible need for further surgery and the risks associated with regional blocks and anesthesia. The plan is to take the patient to the operating room sometime on 07/29/23 for the following procedures: 1. Left carpal tunnel syndrome, under local All of the preoperative paperwork including the consent was reviewed today. All the patient's questions were answered. He denies Diabetes, blood thinners, asthma, heart, lung, kidney issues He has a mild tremor at baseline 2. Right RTC tear From a fall ~07/09/23 He will schedule an appointment to be seen by Dr. Sheets to discuss surgery Scribed for Estela Conteh MD by Shyam Kapadia medical device sales representative, on 07/14/23 at 12:50 PM, EST. Coding Level of Care Code Est Pt Level 4 (93147) Diagnoses Carpal tunnel syndrome of left wrist G56.02 Tremors of nervous system R25.1
[2023-07-14 12:29] VITALS: BMI 31.0
== END 2023-07-14 13:04 | disposition home or self-care (01) ==
PROVIDERS: PCP Internal Medicine; Visit Provider Orthopaedic Surgery
DX: G56.02 Carpal tunnel syndrome, left upper limb (principal); R25.1 Tremor, unspecified
CPT/HCPCS: 99024

== ENCOUNTER → 2023-07-14 12:18 | Outpatient (BNVA) | payer MEDICARE, SELFPAY | PROVIDERS: PCP Internal Medicine; Visit Provider Orthopaedic Surgery | DX: Z01.818 Encounter for other preprocedural examination (principal); S49.91XA Unspecified injury of right shoulder and upper arm, initial encounter; S46.001A Unspecified injury of muscle(s) and tendon(s) of the rotator cuff of right shoulder, initial encounter; G56.02 Carpal tunnel syndrome, left upper limb | CPT/HCPCS: 99212 ==

== ENCOUNTER 2023-07-14 13:07 | Outpatient (AMB) | payer MEDICARE, SELFPAY ==
--- NOTE | 2023-07-14 13:11 | A.OFFVIS_ITS ---
Intake Visit Reasons: New Prob - Right Shoulder MRI review Intake Note: Rehan a 67 year old male who presents today for an MRI review of right shoulder. Allergies moxifloxacin [From Avelox] Allergy (Mild, Verified 07/14/23 12:30) Hives acetaminophen [Percocet] Adverse Reaction (Unknown, Verified 07/14/23 12:30) vomiting oxycodone [Percocet] Adverse Reaction (Unknown, Verified 07/14/23 12:30) vomiting HPI HPI New Prob - Right Shoulder MRI review: Details: 67-year-old female who presents to the office today for an MRI review of right shoulder. He continues to have pain, swelling as well as weakness in his shoulder. 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 Cognitive needs: No Hearing needs: No Vision needs: Yes (Glasses) Review of Systems Const All systems reviewed & are unremarkable except as noted in HPI and below Physical Exam Extrem Other: Right shoulder: Normal to inspection. No bony prominence over the AC joint and no tenderness. He has tenderness along proximal aspect of the shoulder and significant swelling at the proximal bicep tendon region. He has pain with RTC strength testing. No pain along the distal bicep tendon. No muscle defects. NVI. Results Reviewed Results Reviewed: MR shoulder RT wo con 07/12/23 IMPRESSION: 1. A large 4 cm (AP/CC) full-thickness tear of the supraspinatus and subscapularis tendons. 2. Medial dislocation of the biceps tendon from the bicipital groove with associated tendinosis and a partial tear. 3. Jsao-rs-hozaljsp acromioclavicular and minimal glenohumeral osteoarthritis. Anterior subacromial spurs. 4. Moderate-sized joint effusion. Assessment & Plan Assessment & Plan (1) Traumatic injury of right shoulder: Code(s): S49.91XA - Unspecified injury of right shoulder and upper arm, initial encounter Category: Medical (2) Injury of right rotator cuff: Code(s): S46.001A - Unspecified injury of muscle(s) and tendon(s) of the rotator cuff of right shoulder, initial encounter Category: Medical Plan MRI results were discussed with the patient today. Given the extent of pain and weakness he is experiencing, he would like to proceed with RTC repair of the right shoulder if necessary. He does have a surgery booked for left CTR with Dr. Conteh next week which he will proceed with. Per Dr. Conteh, he can proceed with shoulder surgery about 4-6 weeks after the CTR surgery. I will also discuss this with Dr. Sheets to know the further treatment plan for the shoulder. Once the decision is made, we will move with right shoulder RTC repair surgery. Medications: New celecoxib (Celebrex) 200 mg PO BID 60 caps 3RF 30 days Patient Instructions: Scribed for Yesy Gottlieb PA-C, by Ronaldo Marquez chief medical technologist, on 07/14/2023 at 1:00 PM GILBERT. Yesy Muhammad PA-C, have personally reviewed and agree with the information entered by the scribe. Coding Level of Care Code Est Pt Level 3 (15377) Diagnoses Traumatic injury of right shoulder S49.91XA Injury of right rotator cuff S46.001A
== END 2023-07-14 13:19 | disposition home or self-care (01) ==
LOC: HO.HOS 13:07
PROVIDERS: PCP Internal Medicine; Visit Provider Physician Assistant
DX: S49.91XA Unspecified injury of right shoulder and upper arm, initial encounter (principal); S46.001A Unspecified injury of muscle(s) and tendon(s) of the rotator cuff of right shoulder, initial encounter
CPT/HCPCS: 99214

== ENCOUNTER 2023-07-15 14:23 | Outpatient (AMB) | payer MEDICARE, SELFPAY ==
--- NOTE | 2023-07-15 14:47 | A.OFFVIS_ITS ---
Intake Visit Reasons: OV- RT shoulder pain Intake Note: Rehan is a 67 year old right hand dominant male who presents today with his to discuss surgery for the right shoulder. Allergies moxifloxacin [From Avelox] Allergy (Mild, Verified 07/15/23 14:48) Hives acetaminophen [Percocet] Adverse Reaction (Unknown, Verified 07/15/23 14:48) vomiting oxycodone [Percocet] Adverse Reaction (Unknown, Verified 07/15/23 14:48) vomiting HPI HPI OV- RT shoulder pain: Details: Right shoulder pain now one week s/p fall. MRI shows a large rtc tear. 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 Cognitive needs: No Hearing needs: No Vision needs: Yes (Glasses) Physical Exam Extrem Other: active abduction painful and 4_/5 EC Passive ER to 45 deg Results Reviewed Results Reviewed: A large 4 cm (AP/CC) full-thickness tear of the supraspinatus and subscapularis tendons. 2. Medial dislocation of the biceps tendon from the bicipital groove with associated tendinosis and a partial tear. 3. Jers-cf-nkrsthma acromioclavicular and minimal glenohumeral osteoarthritis. Anterior subacromial spurs. 4. Moderate-sized joint effusion. Assessment & Plan Assessment & Plan (1) Rotator cuff tear, right: Code(s): M75.101 - Unspecified rotator cuff tear or rupture of right shoulder, not specified as traumatic Category: Medical Plan: THis is a 67 [employer] former [place] with acute right shoulder pain after a recent fall. His MRI clearly shows a large RTC tear with mild atrophy. I would suggest PT and gentle ROM. Surgery when acute pain decreases as tear is likely chronic. Discussed with him and . Will contact me when he wants to proceed forward. In the meantime I recommend PT. Orders: Orders PT Evaluation and Treatment Today M75.101 - Unspecified rotator cuff tear or ru pture of right shoulder, not specified as traumatic Coding Level of Care Code Est Pt Level 4 (67690) Diagnoses Rotator cuff tear, right M75.101
== END 2023-07-15 15:41 | disposition home or self-care (01) ==
PROVIDERS: PCP Internal Medicine; Visit Provider Orthopaedic Surgery
DX: S46.011A Strain of muscle(s) and tendon(s) of the rotator cuff of right shoulder, initial encounter (principal)
CPT/HCPCS: 99214

== ENCOUNTER → 2023-07-15 14:23 | Outpatient (BNVA) | payer MEDICARE, SELFPAY | PROVIDERS: PCP Internal Medicine; Visit Provider Orthopaedic Surgery | DX: M75.101 Unspecified rotator cuff tear or rupture of right shoulder, not specified as traumatic (principal) | CPT/HCPCS: 99212 ==

== ENCOUNTER 2023-10-04 06:03 | Outpatient (REF) | payer MEDICARE, SELFPAY ==
[2023-10-04 06:28] LABS: MANUAL DIFF FLAG NO
[2023-10-04 07:05] LABS: Basophils Absolute Auto 0.1 X10*3/uL (0.0-0.2); Basophils Percent Auto 0.6 % (0-2); Eosinophils Absolute Auto 0.3 X10*3/uL (0.0-0.4); Eosinophils Percent Auto 2.7 % (0-4); Hematocrit 45.1 % (42.0-52.0); Hemoglobin 15.7 g/dl (14.0-18.0); Imm Gran Abs Auto 0.04 X10*3/uL (0.00-0.03); Imm Gran Pct Auto 0.4 % (0.0-0.4); Lymphocytes Absolute Auto 2.7 X10*3/uL (1.2-4.9); Lymphocytes Percent Auto 27.4 % (20-40); Mean Corpuscular HGB Conc 34.8 g/dl (31.0-36.0); Mean Corpuscular Hemoglobin 29.5 pg (27.0-33.0); Mean Corpuscular Volume 84.6 fL (80.0-98.0); Monocytes Absolute Auto 0.9 X10*3/uL (0.1-1.2); Monocytes Percent Auto 9.2 % (2-11); Neutrophils Absolute Auto 5.8 x10*3/uL (2.0-8.3); Neutrophils Percent Auto 59.7 % (45-73); Platelet Count 272 X10*3/uL (160-400); Red Blood Count 5.33 X10*6/uL (4.60-5.80); Red Cell Distribution Width 12.4 % (11.0-16.0); White Blood Count 9.7 X10*3/uL (4.8-10.8)
[2023-10-04 07:36] LABS: Alanine Aminotransferase 44 U/L (0-40); Albumin Level 4.2 g/dL (3.5-5.0); Alkaline Phosphatase 55 U/L (39-117); Anion Gap 13 (12-20); Aspartate Amino Transferase 29 U/L (5-37); Bilirubin Total 0.9 mg/dL (0.0-1.0); Blood Urea Nitrogen 20 mg/dL (9-16); Calcium 8.7 mg/dL (8.4-10.2); Carbon Dioxide 22 mmol/L (22-29); Chloride 108 mmol/L (96-108); Cholesterol 159 mg/dL (<200); Estimated Glomerular Filt Rate > 60; Glucose Fasting 113 mg/dL (60-99); HDL Cholesterol 46 mg/dL (>40); LDL Cholesterol Calculated 84 mg/dL (<100); Sodium 139 mmol/L (135-145); Total Protein 7.5 g/dL (6.5-8.0); Triglycerides 147 mg/dL (<150)
== END 2023-10-04 06:04 | disposition home or self-care (01) ==
LOC: HO.LAB 06:03
PROVIDERS: PCP Internal Medicine; Visit Provider Internal Medicine
DX: Z13.0 Encounter for screening for diseases of the blood and blood-forming organs and certain disorders involving the immune mechanism (principal); Z13.9 Encounter for screening, unspecified; Z13.220 Encounter for screening for lipoid disorders
CPT/HCPCS: 36415; 80053; 80061; 85025

== ENCOUNTER 2023-10-05 11:00 | Outpatient (RCR) | payer MEDICARE, SELFPAY ==
--- NOTE | 2023-07-29 15:29 | MHC.PT.EP ---
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 MRI revealed a full-thickness tear of the supraspinatus and subscapularis tendons and medial dislocation of the biceps tendon from the bicipital groove with associated tendinosis and a partial tear. He presents to PT with expected impairments in pain, decreased right shoulder ROM, decreased strength, soft tissue restrictions, and impaired posture. He is limited functionally by lifting, reaching, overhead ADLs, and sleeping. He is a good candidate for skilled PT in order to address current impairments to facilitate return to PLOF. He is recommended to be seen 2x/week for 4 weeks and will be reassessed at that time Frequency and Duration: The patient will be seen 2x/week for 4 weeks Short Term Goals: Pt will be I with HEP to promote self management of symptoms Pt will improve right shoulder flexion by at least 10 degrees Assisted Goals: Pt will achieve full ROM and strength all planes of right shoulder to assist with lifting and reaching Pt will perform overhead ADLs with minimal to no compensation Pt will demonstrate ability to lift 5# object into eye-level shelf with minimal to no compensation Treatment Plan: Modalities to reduce pain, spasms and effusion. Manual therapy to restore motion and function. Therapeutic exercise to improve strength and flexibility. Neuromuscular re-education for posture and balance. Therapeutic activities to return to functional activities of daily living. Electronically signed by: Marissa Mcdonald, PT, DPT Please sign and return to therapist. Thank you for your referral.
--- NOTE | 2023-10-08 15:45 | MHC.PT.DC ---
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 He has improved ROM and strength all planes of right shoulder. He scored a 30/130 on SPADI outcome measure. He is independent with HEP. He is recommended to continue to perform HEP consistently for a few weeks and follow up with doctor if symptoms do not continue to improve. He reports no further questions or concerns for PT at time of D/C Electronically signed by: Marissa Mcdonald, PT, DPT Please sign and return to therapist. Thank you for your referral.
== END 2023-10-08 15:45 | disposition home or self-care (01) ==
LOC: HO.PT 11:00
PROVIDERS: PCP Internal Medicine; Visit Provider Orthopaedic Surgery
DX: M75.101 Unspecified rotator cuff tear or rupture of right shoulder, not specified as traumatic (principal)
CPT/HCPCS: 97014; 97110; 97140; 97162; 97530

== ENCOUNTER 2023-10-05 13:01 | Outpatient (REF) | payer MEDICARE, SELFPAY ==
[2023-10-05 13:33] LABS: MANUAL DIFF FLAG NO
[2023-10-05 13:54] LABS: Basophils Absolute Auto 0.1 X10*3/uL (0.0-0.2); Basophils Percent Auto 0.7 % (0-2); Eosinophils Absolute Auto 0.3 X10*3/uL (0.0-0.4); Eosinophils Percent Auto 2.5 % (0-4); Hematocrit 45.2 % (42.0-52.0); Hemoglobin 15.7 g/dl (14.0-18.0); Imm Gran Abs Auto 0.04 X10*3/uL (0.00-0.03); Imm Gran Pct Auto 0.4 % (0.0-0.4); Lymphocytes Absolute Auto 2.9 X10*3/uL (1.2-4.9); Lymphocytes Percent Auto 27.4 % (20-40); Mean Corpuscular HGB Conc 34.7 g/dl (31.0-36.0); Mean Corpuscular Hemoglobin 29.4 pg (27.0-33.0); Mean Corpuscular Volume 84.6 fL (80.0-98.0); Mean Platelet Volume 10.3 fL (9.4-12.4); Monocytes Absolute Auto 0.9 X10*3/uL (0.1-1.2); Monocytes Percent Auto 8.8 % (2-11); Neutrophils Absolute Auto 6.3 x10*3/uL (2.0-8.3); Neutrophils Percent Auto 60.2 % (45-73); Platelet Count 280 X10*3/uL (160-400); Red Blood Count 5.34 X10*6/uL (4.60-5.80); Red Cell Distribution Width 12.6 % (11.0-16.0); White Blood Count 10.4 X10*3/uL (4.8-10.8)
[2023-10-05 14:36] LABS: C Reactive Protein < 0.10 mg/dL (< or = 0.50); Estimated Average Glucose 111 mg/dL; Hemoglobin A1C 149.7951 umol/L; Hemoglobin A1c % 5.5 % (<6.0); Iron 87 mcg/dL (45-160); Magnesium 2.2 mg/dL (1.6-2.6); Percent Iron Saturation 35 % (15-50); Total Iron Binding Capacity 249 mcg/dL (228-428); Unsaturated Iron Binding 162 ug/dL
[2023-10-05 14:40] LABS: Rheumatoid Factor < 13.0 IU/mL (<15.0)
[2023-10-05 14:41] LABS: Erythrocyte Sedimentation Rate 6 MM/HR (0-15)
[2023-10-05 14:55] LABS: TSH reflex Free T4 1.25 uIU/mL (0.32-4.0); Vitamin D 25-OH Total 37.4 ng/mL (>30)
[2023-10-05 14:58] LABS: Folate 12.1 ng/mL (> or = 4.0); Vitamin B12 426 pg/mL (200-900)
[2023-10-11 05:58] LABS: Vitamin B6 8.9 ng/mL (2.1-21.7)
[2023-10-14 06:19] LABS: Anti Nuclear Antibody Screen NEGATIVE (NEGATIVE)
== END 2023-10-05 13:02 | disposition home or self-care (01) ==
LOC: HO.LAB 13:01
PROVIDERS: PCP Internal Medicine; Visit Provider Internal Medicine
DX: R25.9 Unspecified abnormal involuntary movements (principal); G25.81 Restless legs syndrome
CPT/HCPCS: 36415; 82306; 82607; 82746; 83036; 83090; 83540; 83735; 84207; 84443; 85025; 85652; 86038; 86140; 86431

== ENCOUNTER 2023-10-06 09:02 | Outpatient (AMB) | payer MEDICARE, SELFPAY ==
--- NOTE | 2023-10-06 09:05 | MHC.PC.OV ---
Vital Signs 10/06/23 09:09 Height 5 ft 10 in Weight 214 lb BMI 30.7 BP 130/82 Blood Pressure Location Lt brachial Position Sitting Pulse 76 Pulse Source Pulse Oximeter Pulse Oximetry (%) 98 Oxygen Delivery Method Room Air Intake Visit Reasons: PE - see comments Doper Operator Required: No Accompanied by: Self / Same As Patient Allergies moxifloxacin [From Avelox] Allergy (Mild, Verified 10/06/23 09:13) Hives acetaminophen [Percocet] Adverse Reaction (Unknown, Verified 10/06/23 09:13) vomiting oxycodone [Percocet] Adverse Reaction (Unknown, Verified 10/06/23 09:13) vomiting Medication List - Last Reconciled 10/06/23 by Lisandro Stewart MD atorvastatin 40 mg PO DAILY carbidopa-levodopa 25-100 mg tabs PO celecoxib (Celebrex) 200 mg PO BID 30 days Tobacco use date assessed: 04/01/23 Fall risk assessment: No Falls in past year Last assessed Fall Risk: 10/06/23 Dental Screening Dental Screen Date: 04/01/23 HPI PE - see comments HPI Details Parkinson's disease and hyperlipidemia; right rotator cuff tear seeing ortho [facility] Medical History Obesity Hyperlipidemia History of inguinal hernia Surgical History History of inguinal hernia repair History of cystoscopy History of knee surgery Family History Father Prostate cancer Mother CAD (coronary artery disease) Social History Housing: House Alcohol intake: never Patient Tobacco Use Status: Never used Tobacco e-Cigarette/Vaping Use: Never Used Second Hand Smoke Exposure: No service: No Current occupational status: employed 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 Cognitive needs: No Hearing needs: No Vision needs: Yes (Glasses) Questionnaire PHQ-9 Over the last 2 weeks, how often have you been bothered by any of the following problems? 1. Little interest or pleasure in doing things: not at all 2. Feeling down, depressed, or hopeless: not at all 3. Trouble falling or staying asleep, or sleeping too much: not at all 4. Feeling tired or having little energy: not at all 5. Poor appetite or overeating: not at all 6. Feeling bad about yourself - or that you are a failure or have let yourself or your family down: not at all 7. Trouble concentrating on things, such as reading the newspaper or watching television: not at all 8. Moving or speaking so slowly that other people could have noticed. Or the opposite - being so fidgety or restless that you have been moving around a lot more than usual: not at all 9. Thoughts that you would be better off or of hurting yourself in some way: not at all Total score: 0 Depression Screening Interpretation: Negative Depression Screening Done: Yes 01579 - PHQ-9 Billing: Yes Source: Developed by Drs. Cachorro Grant, Darby Farmer, Alonso Young and colleagues, with an educational roro from [employer]. Thrive Questionnaire Date Thrive assessed: 04/01/23 AUDIT C Alcohol Use Questionnaire (AUDIT-C) 1. How often do you have a drink containing alcohol?: Never 3. How often do you have six or more drinks on one occasion?: Never Total Score: 0 Score Reviewed/Action Taken: Yes JACQUES-7 AMB Questionnaire JACQUES-7 Date JACQUES - 7 assessed: 10/06/23 Feeling nervous, anxious, or on edge: 0 = Not at all Not being able to stop or control worryin = Not at all Worrying too much about different things: 0 = Not at all Trouble relaxin = Not at all Being so restless that it is hard to sit still: 0 = Not at all Becoming easily annoyed or irritable: 0 = Not at all Feeling afraid as if something awful might happen: 0 = Not at all Total JACQUES-7 score (0-4 normal; 5-9 mild; 10-14 moderate; 15-21 severe): 0 Source: Developed by Drs. Cachorro Grant, Darby Farmer, Alonso Young and colleagues, with an educational roro from [employer]. Review of Systems Const Denies chills, Denies fatigue, Denies headache(s) and Denies weight loss Eyes Denies change in vision, Denies diplopia and Denies eye pain ENT Denies vertigo, Denies dizziness, Denies headache(s) and Denies nasal discharge Card Denies chest pain, Denies rapid heart rate and Denies dyspnea on exertion Resp Denies chest congestion, Denies cough, Denies pain with cough and Denies dyspnea on exertion GI Denies abdominal pain, Denies hematochezia and Denies change in bowel habits Musc Denies myalgias, Denies arthralgias and Denies joint swelling Skin/Breast Denies lesions and Denies unusual bruising Neuro Denies vertigo, Denies dizziness, Denies headache(s) and Denies focal weakness Endo Denies fatigue Physical exam (Primary Care) Vital Signs: Last Vital Signs Pulse 76 10/06/23 09:09 BP 130/82 10/06/23 09:09 Pulse Ox 98 10/06/23 09:09 Oxygen Delivery Method Room Air 10/06/23 09:09 BMI result Body Mass Index 30.7 Tobacco/Smoking Status: Tobacco use Status Tobacco use date assessed 04/01/23 10/06/23 09:06 Patient Tobacco Use Status Never used Tobacco 10/06/23 09:06 e-Cigarette/Vaping Use Never Used 10/06/23 09:06 PHQ-9: PHQ-9 Score PHQ-9: Total score 0 10/06/23 09:13 Depression Screening Interpretation: Negative Thrive Assessment: Date of Thrive Assessment Date Thrive assessed 04/01/23 10/06/23 09:06 Const General: cooperative, healthy appearing and no acute distress Orientation/consciousness: oriented to person, oriented to place and oriented to time [facility] Head: Yes normal to inspection, Yes normocephalic and Yes atraumatic Mouth: Normal oral and palatal mucosa present and tongue normal Throat: Yes posterior oropharynx normal and Yes uvula midline Eyes General: appearance normal, both eyes and all related structures Neck Neck: Yes normal visual inspection, Yes full ROM and Yes no lymphadenopathy Thyroid: Thyroid normal Carotids: normal carotid upstroke Chest Chest palpation & inspection: normal inspection of the chest Resp Effort & Inspection: normal respiratory effort and able to speak in complete sentences Auscultation: clear to auscultation bilaterally Cardio Jugular venous distension: no JVD Palpation: normal PMI Rate: regular rate Rhythm: regular rhythm Heart sounds: S1 normal heart sound present and S2 normal heart sound present GI Inspection: Yes normal to inspection Palpation (GI): Soft to palpation and No hepatosplenomegaly present Auscultation: normal bowel sounds General: Yes no CVA tenderness Back/Spine/Pelvis Back: no CVA tenderness Skin General skin exam: no rashes or lesions noted Neuro General: oriented to person, oriented to place and oriented to time Extrem General: Yes normal to inspection and Yes full ROM Assessment and Plan Assessment & Plan (1) Physical exam: Code(s): Z00.00 - Encounter for general adult medical examination without abnormal findings Plan: stable (2) Hyperlipidemia: Code(s): E78.5 - Hyperlipidemia, unspecified Plan: stable; same rx (3) Parkinson disease: Code(s): G20.A1 - Parkinson's disease without dyskinesia, without mention of fluctuations Plan: stable; as per neuro (4) Rotator cuff tear, right: Code(s): M75.101 - Unspecified rotator cuff tear or rupture of right shoulder, not specified as traumatic Plan: as per ortho Medications: Refilled atorvastatin 40 mg PO DAILY 90 tabs 5RF Coding Level of Care Code Est Pt Prev Care >65y(91337) Diagnoses Physical exam Z00.00 Hyperlipidemia E78.5 Parkinson disease G20.A1 Rotator cuff tear, right M75.101
[2023-10-06 09:09] VITALS: BP 130/82; PULSE 76; O2SAT 98; BMI 30.7
== END 2023-10-06 09:41 | disposition home or self-care (01) ==
PROVIDERS: PCP Internal Medicine; Visit Provider Internal Medicine
DX: Z00.00 Encounter for general adult medical examination without abnormal findings (principal); E78.5 Hyperlipidemia, unspecified; G20.A1 Parkinson's disease without dyskinesia, without mention of fluctuations; M75.101 Unspecified rotator cuff tear or rupture of right shoulder, not specified as traumatic
CPT/HCPCS: 99397

== ENCOUNTER 2024-01-04 06:10 | Outpatient (REF) | payer MEDICARE, SELFPAY ==
[2024-01-04 08:28] LABS: Cholesterol 212 mg/dL (<200); HDL Cholesterol 41 mg/dL (>40); LDL Cholesterol Calculated 146 mg/dL (<100); Triglycerides 125 mg/dL (<150)
== END 2024-01-04 06:11 | disposition home or self-care (01) ==
LOC: HO.LAB 06:10
PROVIDERS: PCP Internal Medicine; Visit Provider Internal Medicine
DX: Z13.220 Encounter for screening for lipoid disorders (principal)
CPT/HCPCS: 36415; 80061

== ENCOUNTER 2024-01-06 09:30 | Outpatient (AMB) | payer MEDICARE, SELFPAY ==
[2024-01-06 09:37] VITALS: BP 142/84; BMI 30.4
--- NOTE | 2024-01-06 09:37 | A.OFFPC_ITS ---
Vital Signs 01/06/24 09:37 Height 5 ft 10 in Weight 212 lb BMI 30.4 BP 142/84 H Blood Pressure Location Lt brachial Position Sitting Pulse Source Pulse Oximeter Oxygen Delivery Method Room Air Intake Visit Reasons: 3mth f/u Extraction Supervisor Required: No Accompanied by: Self / Same As Patient Allergies moxifloxacin [From Avelox] Allergy (Mild, Verified 01/06/24 09:37) Hives acetaminophen [Percocet] Adverse Reaction (Unknown, Verified 01/06/24 09:37) vomiting oxycodone [Percocet] Adverse Reaction (Unknown, Verified 01/06/24 09:37) vomiting Medication List - Last Reconciled 01/06/24 by Lisandro Stewart MD atorvastatin 40 mg PO DAILY carbidopa-levodopa 25-100 mg tabs PO celecoxib (Celebrex) 200 mg PO BID 30 days cyanocobalamin (vitamin B-12) 1,000 mcg PO DAILY thiamine HCl (vitamin B1) (Vitamin B-1) 100 mg PO DAILY Tobacco use date assessed: 04/01/23 Fall risk assessment: No Falls in past year Last assessed Fall Risk: 01/06/24 Dental Screening Dental Screen Date: 04/01/23 HPI 3mth f/u HPI Details hyperlipidemia on rx; chol has increased but under stress due to neurological condition which has not been diagnosed yet; has tremors PFSH Medical History Obesity Hyperlipidemia History of inguinal hernia Surgical History History of inguinal hernia repair History of cystoscopy History of knee surgery Family History Father Prostate cancer Mother CAD (coronary artery disease) Social History Housing: House Alcohol intake: never Patient Tobacco Use Status: Never used Tobacco Tobacco use type: Cigarette e-Cigarette/Vaping Use: Never Used Second Hand Smoke Exposure: No service: No Current occupational status: employed 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 Cognitive needs: No Hearing needs: No Vision needs: Yes (Glasses) Questionnaire PHQ-9 Over the last 2 weeks, how often have you been bothered by any of the following problems? 1. Little interest or pleasure in doing things: not at all 2. Feeling down, depressed, or hopeless: not at all 3. Trouble falling or staying asleep, or sleeping too much: not at all 4. Feeling tired or having little energy: not at all 5. Poor appetite or overeating: not at all 6. Feeling bad about yourself - or that you are a failure or have let yourself or your family down: not at all 7. Trouble concentrating on things, such as reading the newspaper or watching television: not at all 8. Moving or speaking so slowly that other people could have noticed. Or the opposite - being so fidgety or restless that you have been moving around a lot more than usual: not at all 9. Thoughts that you would be better off or of hurting yourself in some way: not at all Total score: 0 Depression Screening Interpretation: Negative Depression Screening Done: Yes 05082 - PHQ-9 Billing: Yes Source: Developed by Drs. Cachorro Grant, Darby Farmer, Alonso Young and colleagues, with an educational roro from [employer]. Thrive Questionnaire Date Thrive assessed: 04/01/23 AUDIT C Alcohol Use Questionnaire (AUDIT-C) 1. How often do you have a drink containing alcohol?: Never 3. How often do you have six or more drinks on one occasion?: Never Total Score: 0 Score Reviewed/Action Taken: Yes JACQUES-7 AMB Questionnaire JACQUES-7 Date JACQUES - 7 assessed: 10/06/23 Source: Developed by Drs. Cachorro Grant, Alonso Gallagher and colleagues, with an educational roro from [employer]. Review of Systems Const Denies chills, Denies headache(s) and Denies weight loss ENT Denies headache(s) Card Denies chest pain, Denies syncope, Denies irregular heart rhythm and Denies dyspnea Resp Denies chest congestion, Denies cough and Denies dyspnea GI Denies abdominal pain, Denies change in stool character, Denies nausea and Denies vomiting Musc Denies deformity and Denies joint swelling Neuro Denies syncope and Denies headache(s) Physical exam (Primary Care) Vital Signs: Last Vital Signs BP 142/84 H 01/06/24 09:37 Oxygen Delivery Method Room Air 01/06/24 09:37 BMI result Body Mass Index 30.4 Tobacco/Smoking Status: Tobacco use Status Tobacco use date assessed 04/01/23 01/06/24 09:43 Patient Tobacco Use Status Never used Tobacco 01/06/24 09:43 Tobacco use type Cigarette 01/06/24 09:43 e-Cigarette/Vaping Use Never Used 01/06/24 09:43 PHQ-9: PHQ-9 Score PHQ-9: Total score 0 01/06/24 09:43 Depression Screening Interpretation: Negative Thrive Assessment: Date of Thrive Assessment Date Thrive assessed 04/01/23 01/06/24 09:43 Const General: cooperative, comfortable, no acute distress and alert Neck Neck: Yes no lymphadenopathy Thyroid: Thyroid normal Resp Effort & Inspection: normal respiratory effort Auscultation: clear to auscultation bilaterally Percussion: percussion normal Cardio Jugular venous distension: no JVD Palpation: normal PMI Rate: regular rate Rhythm: regular rhythm Heart sounds: S1 normal heart sound present and S2 normal heart sound present GI Inspection: Yes normal to inspection Palpation (GI): No hepatosplenomegaly present Skin General skin exam: no rashes or lesions noted Extrem General: Yes no clubbing, cyanosis or edema Coding Level of Care Code Est Pt Level 3 (23278) Diagnoses Hyperlipidemia E78.5 Assessment & Plan Assessment & Plan (1) Hyperlipidemia: Code(s): E78.5 - Hyperlipidemia, unspecified Category: Medical Plan: same rx for now Orders: Orders Lipid Panel Today Z13.220 - Encounter for screening for lipoid disorders
== END 2024-01-06 09:56 | disposition home or self-care (01) ==
PROVIDERS: PCP Internal Medicine; Visit Provider Internal Medicine
DX: E78.5 Hyperlipidemia, unspecified (principal)

== ENCOUNTER → 2024-01-06 09:30 | Outpatient (BNVA) | payer MEDICARE, SELFPAY | PROVIDERS: PCP Internal Medicine; Visit Provider Internal Medicine | DX: E78.5 Hyperlipidemia, unspecified (principal) | CPT/HCPCS: 96127; 99212 ==

== ENCOUNTER 2024-01-24 10:28 | Outpatient (AMB) | payer MEDICARE, SELFPAY ==
[2024-01-24 10:31] VITALS: BMI 30.4
--- NOTE | 2024-01-24 10:31 | A.OFFVIS_ITS ---
Vital Signs 01/24/24 10:31 Height 5 ft 10 in Weight 212 lb BMI 30.4 Intake Visit Reasons: Left Shoulder Injection Intake Note: Rehan is a 67 year old right hand dominant male who presents today with his for a follow up for his partial tear of left rotator cuff. Patient reports that he continues to have pain and would like an injection. Patient reports that he has followed up with Neuro, Ruled out Parkinsons. Allergies moxifloxacin [From Avelox] Allergy (Mild, Verified 01/24/24 10:37) Hives acetaminophen [Percocet] Adverse Reaction (Unknown, Verified 01/24/24 10:37) vomiting oxycodone [Percocet] Adverse Reaction (Unknown, Verified 01/24/24 10:37) vomiting HPI HPI Left Shoulder Injection: Details: Here today for but shoulder pain. Pain at night and pain with overhead reaching. Has had injections in the contralateral shoulder with success. 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 Cognitive needs: No Hearing needs: No Vision needs: Yes (Glasses) Physical Exam Vital Signs: BMI result Body Mass Index 30.4 Extrem Other: Full full range of motion with positive Rodarte and Neer left shoulder. Negative empty can Office Procedures Joint Inj/Aspir; Non-Pain Clin Joint Injection/Drain Details: Injected 1 mL of Decadron and 3 mL 1% lidocaine and 3 mL of 0.25% Marcaine. Site was prepped using aseptic technique. Patient tolerated the procedure well. Shoulders, Hips, Knees, Shoulder Injection Large joint : Left Shoulder Coding Procedure code (CPT) selection complete Assessment & Plan Assessment & Plan (1) Tendinitis of left rotator cuff: Code(s): M75.82 - Other shoulder lesions, left shoulder Category: Medical Plan: This is a 68-year-old with left rotator cuff tendonitis. I injected his left shoulder. Continue his home exercise program. Coding Level of Care Code Est Pt Level 3 (77237) Diagnoses Tendinitis of left rotator cuff M75.82 CPT Codes Shoulders, Hips, Knees, - Shoulder Injection Large joint : Left Shoulder ([id number])
== END 2024-01-24 10:48 | disposition home or self-care (01) ==
LOC: HO.HOS 10:28
PROVIDERS: PCP Internal Medicine; Visit Provider Orthopaedic Surgery
DX: M75.82 Other shoulder lesions, left shoulder (principal)
CPT/HCPCS: 20610; 99213

== ENCOUNTER → 2024-01-24 10:28 | Outpatient (BNVA) | payer MEDICARE, SELFPAY | PROVIDERS: PCP Internal Medicine; Visit Provider Orthopaedic Surgery | DX: M75.82 Other shoulder lesions, left shoulder (principal); M25.512 Pain in left shoulder | CPT/HCPCS: 20610; 99212; J0665; J1100; J2003 ==

== ENCOUNTER 2024-04-07 06:33 | Outpatient (REF) | payer MEDICARE, SELFPAY ==
--- OUTSIDE RECORDS SUMMARY | 2024-04-07 06:37 | XMS_ITS ---
Author Name [facility] Organization Unknown History of Medication Use Medication Directions Dispensed Refills Start Date End Date Stat us primidone (MYSOLINE) 50 MG tablet Take 1 tablet (50 mg total) by mouth nightly. 02/12/2024 03/21/9999 active thiamine (VITAMIN B-1) 100 mg tablet Take 1 tablet (100 mg total) by mouth daily. 12/13/2023 active cyanocobalamin (VITAMIN B-12) 1000 MCG tablet Take 1 tablet (1,000 mcg total) by mouth daily. 12/13/2023 active atorvastatin (LIPITOR) 40 MG tablet Take 1 tablet (40 mg total) by mouth daily. 09/16/2023 active brimonidine (ALPHAGAN) 0.15 % ophthalmic solution 1 drop 3 (three) times a day. 09/16/2023 active celeCOXIB (CeleBREX) 200 MG capsule Take 1 capsule (200 mg total) by mouth 2 times a day. 09/16/2023 active carbidopa-levodopa (SINEMET) 25-100 MG per tablet Take 1 tablet by mouth 3 (three) times a day. 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
[2024-04-07 07:49] LABS: Cholesterol 223 mg/dL (<200); HDL Cholesterol 45 mg/dL (>40); LDL Cholesterol Calculated 153 mg/dL (<100); Triglycerides 126 mg/dL (<150)
== END 2024-04-07 06:34 | disposition home or self-care (01) ==
LOC: HO.LAB 06:33
PROVIDERS: PCP Internal Medicine; Visit Provider Internal Medicine
DX: Z13.220 Encounter for screening for lipoid disorders (principal)
CPT/HCPCS: 36415; 80061

== ENCOUNTER 2024-04-12 08:48 | Outpatient (AMB) | payer MEDICARE, SELFPAY ==
--- NOTE | 2024-04-12 08:50 | MHC.PC.OV ---
Vital Signs 04/12/24 08:51 Height 5 ft 10 in Weight 214 lb BMI 30.7 BP 140/82 H Blood Pressure Location Lt brachial Position Sitting Pulse 80 Pulse Source Pulse Oximeter Temp 97.1 F Temp Source Skin Pulse Oximetry (%) 96 Oxygen Delivery Method Room Air Intake Visit Reasons: 3 month f/u Intake Note: Patient is here to follow up on Parkinson, HLD. Balancer Required: No Electric Deicer Assembler: Not Required per policy Accompanied by: Self / Same As Patient Allergies moxifloxacin [From Avelox] Allergy (Mild, Verified 04/12/24 08:51) Hives acetaminophen [Percocet] Adverse Reaction (Unknown, Verified 04/12/24 08:51) vomiting oxycodone [Percocet] Adverse Reaction (Unknown, Verified 04/12/24 08:51) vomiting Medication List - Last Reconciled 04/12/24 by Lisandro Stewart MD atorvastatin 40 mg PO DAILY carbidopa-levodopa 25-100 mg tabs PO celecoxib (Celebrex) 200 mg PO BID 30 days cyanocobalamin (vitamin B-12) 1,000 mcg PO DAILY thiamine HCl (vitamin B1) (Vitamin B-1) 100 mg PO DAILY Tobacco use date assessed: 04/12/24 Fall risk assessment: No Falls in past year Last assessed Fall Risk: 04/12/24 Dental Screening Dental Screen Date: 04/12/24 Did you have a dental visit in the last 12 months?: Yes Did you have a dental problem in the last 6 months where you did not have access to dental care?: No Was dental information given to patient?: Patient has dentist HPI 3 month f/u HPI Details Parkinson's dis; stable; sees neuro; hyperlipidemia with dietary indiscretion [facility] Medical History Obesity Hyperlipidemia History of inguinal hernia Surgical History History of inguinal hernia repair History of cystoscopy History of knee surgery Family History Father Prostate cancer Mother CAD (coronary artery disease) Social History Housing: House Alcohol intake: never Patient Tobacco Use Status: Never used Tobacco Tobacco use type: Cigarette e-Cigarette/Vaping Use: Never Used Second Hand Smoke Exposure: No service: No Current occupational status: employed 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 Cognitive needs: No Hearing needs: No Vision needs: Yes (Glasses) Questionnaire PHQ-9 Over the last 2 weeks, how often have you been bothered by any of the following problems? 1. Little interest or pleasure in doing things: not at all 2. Feeling down, depressed, or hopeless: not at all 3. Trouble falling or staying asleep, or sleeping too much: not at all 4. Feeling tired or having little energy: not at all 5. Poor appetite or overeating: not at all 6. Feeling bad about yourself - or that you are a failure or have let yourself or your family down: not at all 7. Trouble concentrating on things, such as reading the newspaper or watching television: not at all 8. Moving or speaking so slowly that other people could have noticed. Or the opposite - being so fidgety or restless that you have been moving around a lot more than usual: not at all 9. Thoughts that you would be better off or of hurting yourself in some way: not at all Total score: 0 Depression Screening Interpretation: Negative Depression Screening Done: Yes Source: Developed by Drs. Cachorro Grant, Darby Farmer, Alonso Young and colleagues, with an educational roor from [employer]. Thrive Questionnaire Date Thrive assessed: 04/12/24 I am a: Patient What is your living situation today?: I have a steady place to live Within the past 12 months, did the food you bought not last and you didn't have the money to get more?: Never true Within the past 12 months, did you worry whether your food would run out before you got money to buy more?: Never true Do you have trouble paying for medicines?: No Do you have trouble getting transportation to medical appointments?: No Do you have trouble paying your heating and electricity bill?: No Do you have trouble taking care of your child, family member or friend?: No Do you have trouble with day-to-day activities such as bathing, preparing meals, shopping, managing finances, etc.?: No Are you currently unemployed and looking for a job?: No Are you interested in more education?: No Please select the resources that you would like help with: None Currently or been in a relationship where the following occur: No concerns reported THRIVE Score: 0 AUDIT C Alcohol Use Questionnaire (AUDIT-C) 1. How often do you have a drink containing alcohol?: Never Total Score: 0 JACQUES-7 AMB Questionnaire JACQUES-7 Date JACQUES - 7 assessed: 04/12/24 Feeling nervous, anxious, or on edge: 0 = Not at all Not being able to stop or control worryin = Not at all Worrying too much about different things: 0 = Not at all Trouble relaxin = Not at all Being so restless that it is hard to sit still: 0 = Not at all Becoming easily annoyed or irritable: 0 = Not at all Feeling afraid as if something awful might happen: 0 = Not at all Total JACQUES-7 score (0-4 normal; 5-9 mild; 10-14 moderate; 15-21 severe): 0 Source: Developed by Drs. Cachorro Grant, Darby Farmer, Alonso Young and colleagues, with an educational roro from [employer]. Review of Systems Const Denies chills, Denies headache(s) and Denies weight loss ENT Denies headache(s) Card Denies chest pain, Denies syncope, Denies irregular heart rhythm and Denies dyspnea Resp Denies chest congestion, Denies cough and Denies dyspnea GI Denies abdominal pain, Denies change in stool character, Denies nausea and Denies vomiting Musc Denies deformity and Denies joint swelling Neuro Denies syncope and Denies headache(s) Physical exam (Primary Care) Vital Signs: Last Vital Signs Temp 97.1 F 04/12/24 08:51 Pulse 80 04/12/24 08:51 BP 140/82 H 04/12/24 08:51 Pulse Ox 96 04/12/24 08:51 Oxygen Delivery Method Room Air 04/12/24 08:51 BMI result Body Mass Index 30.7 Tobacco/Smoking Status: Tobacco use Status Tobacco use date assessed 04/12/24 04/12/24 08:55 Patient Tobacco Use Status Never used Tobacco 04/12/24 08:55 Tobacco use type Cigarette 04/12/24 08:55 e-Cigarette/Vaping Use Never Used 04/12/24 08:55 PHQ-9: PHQ-9 Score PHQ-9: Total score 0 04/12/24 08:55 Depression Screening Interpretation: Negative Thrive Assessment: Date of Thrive Assessment Date Thrive assessed 04/12/24 04/12/24 08:55 Currently or been in a relationship where the following occur: No concerns reported Const General: cooperative, comfortable, no acute distress and alert Neck Neck: Yes no lymphadenopathy Thyroid: Thyroid normal Resp Effort & Inspection: normal respiratory effort Auscultation: clear to auscultation bilaterally Percussion: percussion normal Cardio Jugular venous distension: no JVD Palpation: normal PMI Rate: regular rate Rhythm: regular rhythm Heart sounds: S1 normal heart sound present and S2 normal heart sound present GI Inspection: Yes normal to inspection Palpation (GI): No hepatosplenomegaly present Skin General skin exam: no rashes or lesions noted Extrem General: Yes no clubbing, cyanosis or edema Coding Level of Care Code Est Pt Level 3 (42652) Diagnoses Parkinson disease G20.A1 Assessment & Plan Assessment & Plan (1) Parkinson disease: Code(s): G20.A1 - Parkinson's disease without dyskinesia, without mention of fluctuations Category: Medical Plan: stable; as per neuro
[2024-04-12 08:51] VITALS: BP 140/82; PULSE 80; TEMP 36.2; O2SAT 96; BMI 30.7
--- OUTSIDE RECORDS SUMMARY | 2024-04-12 09:05 | XMS_ITS | Encounter Summary ---
Author Organization [facility] Address [address] [place] [address] Care Team Providers Care Housekeeping Worker Name Role Phone Provider, External MD Primary Care Provider [phone] Reason for Visit * Reason Comments Tremors Encounter Details Date Type Department Care Team ([facility] st Contact Info) Description 04/11/2024 9:00 AM EST Office Visit [facility] Neurology [address] [address] Vic Zee MD [address] [place] [id number] Thiamine deficiency (Primary Dx); B12 deficiency; Mixed action and resting tremor Social History Tobacco Use Types Packs/Day Years Used Date Smoking Tobacco: Never Smokeless Tobacco: Never Tobacco Cessation:Counseling Given: Not Answered Alcohol Use Standard Drinks/Week Comments Yes 0 (1 standard drink = 0.6 oz pur e alcohol) PHQ-2 Answer Date Recorded PHQ-2 Total Score 0 09/14/2023 Sex and Gender Information Value Date Recorded Sex Assigned at Male 03/30/2023 3:15 PM EST Gender Identity Male 03/30/2023 3:15 PM EST Sexual Orientation Not on file documented as of this encounter Last Filed Vital Signs Vital Sign Reading Time Taken Comments Blood Pressure 163/92 04/11/2024 8:52 AM EST Pulse 71 04/11/2024 8:52 AM EST Temperature - - Respiratory Rate - - Oxygen Saturation - - Inhaled Oxygen Concentration - - Weight 100 kg (221 lb) 04/11/2024 8:52 AM EST Height 177.8 cm (5' 10 ) 04/11/2024 8:52 AM EST Body Mass Index 31.71 04/11/2024 8:52 AM EST documented in this encounter Patient Instructions * Patient Instructions* Vic Zee MD - 04/11/2024 9:49 AM EST Rhonda was seen today for follow up for mixed type tremors and other symptoms. While he has non-specific symptoms of feeling tired, weak, sore, muscle tightness that sound parkinsonian but his physical examination is more concerning for bilateral kinetic tremors that look like essential tremors but m ild parkinsonisms were seen with his physical examination. He had a skin biopsy test for alpha-synucleinopathies which was negative, meaning he most likely does not have parkinson's disease. It is because of this I will do a repeat levodopa trial with him taking carbidopa-levodopa 25-100mgthree times daily (every 5-6 hours), 1 tab per dose. He will let me know how he feels in 2 weeks. He will get repeat labs for his thiamine and b12 deficiencies. He will need to follow up in 4-6 weeks. documented in this encounter Progress Notes * Vic Zee MD - 03/28/2024 2:03 PM EST [facility] Name: Rehan Trinh Date of : 1955 Age: 68 y.o. REFERRING PHYSICIAN: External Provider, [address] [place] [address] PCP: [address] / [facility] [id number] Accompanied by: History of Present Illness Rehan Trinh is a right-handed 68 y.o. male w/ pmhx of mixed action and resting tremor, restless leg syndrome, thiamine deficiency, b12 deficiency, CTS (left wrist), who presents for follow up evaluation of a mixed-type tremor tremor of his left hand. CND skin biopsy testing for alpha-synucleinopathies was negative in October 2023. As per initial evaluation (09/14/23): He is followed by orthopedic surgeon Dr. Jose Sheets ([facility]). He has been evaluated by [facility] neurologist Dr. Cam Colón, who diagnosed him with parkinson's disease in March 2023 and started him on levodopa in early April 2023. He immigrated from [place] in 1988. His orthopedic surgeon noticed his left hand tremor in March 2023 when being evaluated for left shoulder issues. He denies having tremors of his right hand. He has trouble with fine motor control of his left hand. He feels the tremor of his left hand is worse when at rest and lessened when holding things and when using his left hand but still noticed. He has a mild tremor with eating utensils with his left hand. He denies dropping things from his left hand. He denies having tremors when walking. He feels his left leg is vibrating , mainly his proximal left leg. He has cramping of his legs at night and sometimes during the day if seated for a long period of time. He sometimes has trouble falling to sleep because of the leg cramps and the leg cramps may wake him from sleep. The leg cramps go away with movement. The cramps are intermittent, last present 3 months ago. He denies having numbness, tingling or burning pain. His family has noticed that he moves slower. His noticed that he has a shuffling gait and taking smaller steps. He denies having freezing of movement when walking. He reports sometimes losing his balance if he turns quickly when walking. Over the past 6 weeks he had a fall resulting in him landing on his right shoulder, currently getting PT for his right shoulder which has been helpful for the pain. His right shoulder pain is making it difficult for him to sleep. He is very tired during the day. He has no issue with his speech and no issue with swallowing when eating or drinking. He has been taking sinemet 1 tab three times daily, taking it 530-6am, 12pm, and 4-5pm. 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 Pertinent Non-Motor ROS: (+) for fatigue, insomnia (-) for reduced sense of smell or taste, drooling, lightheadedness, dizziness, syncope, GI complaints, urologic complaints, issue with memory, hallucinations, delusions, symptoms concerning for RBD, anxiety, depression Family History: (-) for tremors, parkinson's disease, other neurologic movement disorders, dementia WORK UP TO DATE: --EMG/NCS (04/15/23): Evaluation of the left upper extremity showed mild to moderate left median neuropathy across the carpal tunnel. --Home Sleep Study (05/18/23): Snoring (moderate) for 23% of the sleep time. Did not meet criteria for diagnosis of sleep apnea. --Serum Studies (10/14/23): GRECIA (-) --CND Syn-One Skin Biopsy Test (11/10/23): There is no pathologic evidence of phosphorylated alpha-synuclein deposition within cutaneous nerves. The absence of alpha-synuclein does not exclude a diagnosis of synucleinopathy. There was normal intraepidermal nerve fiber density. A normal intraepidermal nerve fiber density does not exclude a small fiber neuropathy or neurodegenerative process. Thereis no pathologic evidence of amyloid deposition in cutaneous nerves. A normal Congo red stain does not exclude a diagnosis of amyloidosis. --Serum Studies (12/06/23): CBC WNL's, CMP WNL's, Vitamin B1 7, Folate 15.3, B12 351, Homocysteine 12.0, CRP <3.0, ESR 2, A1c 5.8, PTH (intact) 41, TSH 1.92, Lyme serology (-), urinlaysis unremarkable --MRI Brain w/wo contrast (12/30/23): Mild-moderate parenchymal volume loss/atrophy. Scattered small FLAIR bright foci within the supratentorial white matter are nonspecific, but are compatible with chronic microangiopathic/small vessel ischemic change. PRIOR EVALUATION: Pedro was last seen on 09/14/23 at which time he underwent initial evaluation. He had a mixed-type tremor of his left hand and only minimal parkinsonisms causing mild issue with dexterity of his left leg and his left arm. Skin biopsy testing for alpha-synucleinopathies was ordered to rule in/out parkinson's disease. No changes to his sinemet dose was recommended at that time. Additional blood work was ordered as he also likely had restless leg syndrome. He underwent skin biopsy procedure for testing for alpha-synucleinopathies on 10/19/23. In late October 2023, upon review of negative skin biopsy test result, indicating that he does not have an alpha-synucleinopathy (ie parkinson's disease), he was instructed to wean off of sinemet. After weaning off sinemet he felt more tired, had less energy, was less responsive, and tremors were worse. Labs and MRI brain imaging was ordered. MRI Brain imaging was unremarkable, labs showed deficien cies in vitamins B1 and B12, supplementation prescriptions were sent. In early January 2024, MRI brain imaging was completed and was not concerning. He was bothered by his tremors, noticing that when his leg was raised up on a foot rest while in his recliner the tremors were worse, affecting either leg at times. He had been dealing with a number of other medical issues which were stressful for him as he worries (shoulder issues, skin abnormality on his nose). He was advised to take primidone 50mg at bedtime for his tremors. In later January 2024, patient's reported that since being on primidone he dragged his feet alot when walking, was always tired. She then said that she doesn't think that the feet dragging wasworse than it was prior to starting the medication but it was a prominent issue with him. He seemedsleepy all day, falling to sleep very easily if seated in his recliner. She noticed that his legs will be jumping off of the chair while he sleeps. He did a sleep study and it had normal findings, per patient's . The tremor in his left hand seemed worse. He was more frustrated and quick to anger. He was advised to stop taking primidone to see if the concerning side effects subside. In mid-February 2024, patient's called to report the muscle jumping and movement in the legs has gotten a little better. He doesn't feel well, he is very tired. He feels like his legs are going to give out. She feels he is slow to do everything. He can't dress himself because both shoulders are giving out. It was recommended that he comes in for follow up evaluation. INTERVAL HISTORY: Since last evaluation, Pedro reports that he continues to have tremors of his left hand. He sometimes has tremors of his legs when his legs are up. He feels he has to use more effort to stand. He feels he is less flexible. He feels more tired. While he has had prior injuries to his shoulders at different times he feels his shoulders with reduced range of motion, followed by orthopedics. He is really not sure if he felt better or moved better when being on sinemet. His general neurologist prescribed him rasagiline but he did not start it. He is going for surgery for his skin cancer on his nose next week. Current Pertinent Medications: B12 1000mcg qdaily B1 100mg qdaily Prior Pertinent Medications: Sinemet 25-100mg 1 tab TID (530-6am, 12pm, 4-5pm) - stopped due to CND skin biopsy testing being negative (10/2023) Primidone 50mg at bedtime (stopped due to being more tired, worsening of jumping legs while sleeping, worsening of tremors) PMH: Past Medical History: Diagnosis Date History of hernia repair Kidney stones PSH: History reviewed. No pertinent surgical history. CURRENT MEDS: Current Outpatient Medications Medication Sig Dispense Refill brimonidine (ALPHAGAN) 0.15 % ophthalmic solution 1 drop 3 (three) times a day. cyanocobalamin (VITAMIN B-12) 1000 MCG tablet Take 1 tablet (1,000 mcg total) by mouth daily. 90 tablet 3 thiamine (VITAMIN B-1) 100 mg tablet Take 1 tablet (100 mg total) by mouth daily. 90 tablet 3 carbidopa-levodopa (SINEMET) 25-100 MG per tablet Take 1 tablet by mouth 3 (three) times a day. 90 tablet 3 No current facility-administered medications for this visit. ALLERGIES: Allergies Allergen Reactions Oxycodone-Acetaminophen GI Intolerance/Nausea/Vomiting FMH: History reviewed. No pertinent family history. SOCIAL: Social History Socioeconomic History Marital status: Spouse name: Not on file Number of children: Not on file Years of education: Not on file Highest education level: Not on file Occupational History Not on file Tobacco Use Smoking status: Never Smokeless tobacco: Never Substance and Sexual Activity Alcohol use: Yes Drug use: Never Sexual activity: Yes Other Topics Concern Not on file Social History Narrative Not on file Social Determinants of Health Financial Resource Strain: Not on file Food Insecurity: Not on file Transportation Needs: Not on file Physical Activity: Not on file Stress: Not on file Social Connections: Not on file Housing Stability: Not on file REVIEW OF SYSTEMS (In addition to HPI): I personally reviewed the 10 Review of Systems on the form filled out by the patient. See scanned document under Media section of chart. PHYSICAL EXAM: BP (!) 163/92 (BP Location: Right arm, Patient Position: Sitting, Cuff Size: Medium (Standard)) Pulse 71 Ht 1.778 m (5' 10 ) Wt 100 kg (221 lb) BMI 31.71 kg/m?? GEN: Alert. NAD. Normal affect. Cooperative. NEUROLOGICAL: MENTAL STATUS: Alert and oriented. Thought process and content unremarkable. Follows commands appropriately. CN: II: PERRL, VFF to conf III, IV, : EOMI. No ptosis present. VII: Face symmetric. VIII: Hearing symmetric. XI: Symmetric shoulder shrug. MOTOR: Normal bulk.. Strength is full and symmetric throughout (+) hammer toe of left foot 2nd digit MOVEMENT EXAM: Unified Parkinson's Disease Rating Scale Speech: 0- Normal: No speech problems. Facial Expression: 1- Slight: Minimal masked facies manifested only by decreased frequency of blinking. Rigidity: Neck: 0- Normal: No rigidity. RUE: 0- Normal: No rigidity. LUE: 0- Normal: No rigidity. RLE: 0- Normal: No rigidity. LLE: 0- Normal: No rigidity. Finger Tapping: Right: 0- Normal: No problems Left: 2- Mild: Any of the following: a) 3-5 interruptions during tapping, b) mild slowing, c) the amplitude decrements midway in the 10-tap sequence. Hand Movements: Right: 0- Normal: No problems Left: 2- Mild: Any of the following: a) 3-5 interruptions during the movements b) mild slowing, c) the amplitude decrements midway in the task. Pronation-Supination of HandsRight: 0- Normal: No problems Left: 0- Normal: No problems Toe Tapping: Right: 0- Normal Left: 1- Slight: Any of the following: a) the regular rhythm is broken with one or two interruptions or hesitations of the tapping movement, b) slight slowing, c) the amplitude decrements near the end of the ten taps. Leg Agility: Right: 0- Normal Left: 2- Mild: Any of the following: a) 3-5 interruptions during tapping movements, b) mild slowing, c) amplitude decrements midway in the task. Arising from Chair: 0- Normal: No problems. Able to arise quickly without hesitation. Gait: 0- Normal: No problems. Freezing of Gait: 0- Normal: No freezing. Postural Stability: 0- Normal: No problems. Recovers with one or two steps. Posture: 0- Normal: No problems. Global Spontaneity of Movement (body bradykinesia): 0- Normal: No problems. Postural Tremor of Hands: Right Hand: 0- Normal. No tremor. Left Hand: 2- Mild: Tremor is at least 1 but less than 3cm in amplitude. Kinetic Tremor of Hands: Right Hand: 0- Normal: No tremor. Left Hand: 2- Mild: Tremor is at least 1 but less than 3cm in amplitude. Rest Tremor Amplitude: RUE: 0- Normal: No tremor. LUE: 2- Mild: > 1cm but < 3cm in maximal amplitude. RLE: 0- Normal: No tremor. LLE: 0- Normal: No tremor. Lip/Jaw ratings: 0- Normal: No tremor. Constancy of Rest Tremor: 4- Severe: Tremor at rest is present >75% of the entire examination period. Were dyskinesias (chorea or dystonia) present during examination?: No Kelsey and Yahr Stage: 1- Unilateral involvement only. The Essential Tremor Rating Assessment Scale (TETRAS) TETRAS Performance Scale Head: No Visible Tremor Face: No visible tremor Tongue: No visible tremor Voice: No visible tremor Right Upper Limb: No visible tremor Left Upper Limb: 1 to < 3 cm Right Lower Limb: No visible tremor Left Lower Limb: No visible tremor Archimedes Spirals - Right Hand: Obvious tremor Archimedes Spirals - Left Hand: Obvious tremor Handwriting: Barely visible Dot Approximation: No visible tremor Standing: Obvious but mild Total Score: 9 ASSESSMENT: 68 y.o. male w/ pmhx of mixed action and resting tremor, restless leg syndrome, thiamine deficiency, b12 deficiency, CTS (left wrist), who presents for follow up evaluation of a mixed-type tremor tremor of his left hand. PLAN: Patient Instructions Rhonda was seen today for follow up for mixed type tremors and other symptoms. While he has non-specific symptoms of feeling tired, weak, sore, muscle tightness that sound parkinsonian but his physical examination is more concerning for bilateral kinetic tremors that look like essential tremors but mild parkinsonisms were seen with his physical examination. He had a skin biopsy test for alpha-synucleinopathies which was negative, meaning he most likely does not have parkinson's disease. It is because of this I will do a repeat levodopa trial with him taking carbidopa-levodopa 25-100mgthree times daily (every 5-6 hours), 1 tab per dose. He will let me know how he feels in 2 weeks. He will get repeat labs for his thiamine and b12 deficiencies. He will need to follow up in 4-6 weeks. Total time in minutes spent with patient: 55 minutes with more than 50% of the time spent in patient education/counselling/coordinating care with the patient and /or family. Counseling included Diagnostic results, impressions, and/or recommended diagnostic studies, Prognosis, Risks and benefits of management (treatment) options, Instructions for management (treatment) and/or follow-up, Importance of compliance with chosen management (treatment) options, Risk factor reduction, Patient and family education. cc: External Provider, [address] [place] [address] [place] [address] / [place] [id number] documented in this encounter Plan of Treatment Upcoming Encounters Date Type Department Care Team (Late st Contact Info) Description 06/28/2024 4:30 PM EDT Office Visit [facility] Neurology [address] [place] [address] Janes [place], PERRY [address] [facility] [address] [place] [address] Scheduled Orders Name Type Priority Associated Diagnoses Orde r Schedule VITAMIN B1, WHOLE BLOOD Lab Routine Thiamine deficiency Ordered: 04/11/2024 VITAMIN B12 Lab Routine B12 deficiency Ordered: 04/11/2024 Folate Level Lab Routine B12 deficiency Ordered: 04/11/2024 Methylmalonic Acid and Homocysteine ([facility] [id number]) Lab Routine B12 deficiency Ordered: 04/11/2024 documented as of this encounter Visit Diagnoses Diagnosis Thiamine deficiency- Primary Other and unspecified manifestations of thiamine deficiency B12 deficiency Mixed action and resting tremor documented in this encounter Care Teams Housekeeping Worker Relationship Specialty Start Date End Date Provider, MD Colten [address] [place] [address] PCP - General Internal Medicine 03/30/23 documented as of this encounter
--- OUTSIDE RECORDS SUMMARY | 2024-04-12 09:05 | XMS_ITS | Clinical Summary ---
Author Organization [facility] Address [address] [place] [address] Care Team Providers Care Porcelain Finish Sprayer Name Role Phone Provider, External MD Primary Care Provider [phone] Allergies Active Allergy Reactions Criticality Noted Date Comments Oxycodone-Acetaminophen GI Intolerance/Nausea/Vomiting Low 01/24/2020 Medications Medication Sig Dispensed Refills Start Date End Date Status brimonidine (ALPHAGAN) 0.15 % ophthalmic solution 1 drop 3 (three) times a day. Active thiamine (VITAMIN B-1) 100 mg tabletIndications :Thiamine deficiency Take 1 tablet (100 mg total) by mouth daily. 90 tablet 3 12/10/2023 Active cyanocobalamin (VITAMIN B-12) 1000 MCG tabletIndications :B12 deficiency Take 1 tablet (1,000 mcg total) by mouth daily. 90 tablet 3 12/10/2023 Active carbidopa-levodop a (SINEMET) 25-100 MG per tabletIndications :Mixed action and resting tremor Take 1 tablet by mouth 3 (three) times a day. 90 tablet 3 04/11/2024 Active celeCOXIB (CeleBREX) 200 MG capsule Take 1 capsule (200 mg total) by mouth 2 times a day. 07/14/2023 04/11/2024 Discontinued atorvastatin (LIPITOR) 40 MG tablet Take 1 tablet (40 mg total) by mouth daily. 04/11/2024 Discontinued primidone (MYSOLINE) 50 MG tabletIndications :Mixed action and resting tremor Take 1 tablet (50 mg total) by mouth nightly. 90 tablet 1 01/21/2024 04/11/2024 Discontinued Active Problems Problem Noted Date Diagnosed Date Thiamine deficiency 04/11/2024 B12 deficiency 04/11/2024 Vitamin D deficiency 09/14/2023 Primary parkinsonism 09/14/2023 Restless leg syndrome 09/14/2023 Mixed action and resting tremor 09/14/2023 Encounters Date Type Department Care Team Description 04/11/2024 9:00 AM EST Office Visit [facility] [address] [phone] Vic Zee MD Thiamine deficiency (Primary Dx); B12 deficiency; Mixed action and resting tremor 04/11/2024 Travel 02/10/2024 Telephone [facility] [address] [address] Vic Zee MD 01/21/2024 Orders Only [facility] [address] [place] [address] Vic Zee MD Mixed action and resting tremor (Primary Dx) 01/11/2024 Telephone [facility] [address] [place] [address] Vic Zee MD from Last 3 Months Social History Tobacco Use Types Packs/Day Years [...] PM EST Sexual Orientation Not on file Last Filed Vital Signs Vital Sign Reading [...] Mass Index 31.71 04/11/2024 8:52 AM EST Plan of Treatment Upcoming Encounters Date Type Department Care Team (Late st Contact Info) Description 06/28/2024 4:30 PM EDT Office Visit [facility] [place] [address] [facility] [address] [place] [address] Janes [place], SOLE DYER [address] [facility] [address] [place] [address] Health Maintenance Due Date Last Done Comments Hepatitis C Virus Screening 1955 DTaP/Tdap/Td Vaccines (1 - Tdap) 1976 Colonoscopy 2002 Pneumococcal Vaccines 50+ (1 of 1 - PCV) 07/24/2007 Zoster (Shingles) Vaccine (1 of 2) 07/24/2007 Influenza Vaccine 10/21/2023 COVID-19 Vaccine ( - 2023-2 5 season) 2023 RSV Vaccine 60 years and old er and Patients (1 - 1-dose 75+ series) 2032 Hepatitis B Vaccines Aged Out No long er eligible based on patient's age to complete this topic Care Teams Porcelain Finish Sprayer Relationship Specialty Start Date End Date Provider, MD Colten [address] [place] [address] PCP - General Internal Medicine 03/30/23
--- OUTSIDE RECORDS SUMMARY | 2024-04-12 09:05 | XMS_ITS | Encounter Summary ---
Author Organization [facility] Address [address] [place] [address] Care Team Providers Care Research Instructor Name Role Phone Provider, Colten MONTES Primary Care Provider [phone] Encounter Details Date Type Department Care Team (Latest Contact Info) Description 04/11/2024 Travel Social History Tobacco Use Types Packs/Day Years Used Date Smoking Tobacco: Never Smokeless Tobacco: Never Alcohol Use Standard Drinks/Week Comments Yes 0 (1 standard drink = 0.6 oz pur e alcohol) PHQ-2 Answer Date Recorded PHQ-2 Total Score 0 09/14/2023 Sex and Gender Information Value Date Recorded Sex Assigned at Male 03/30/2023 3:15 PM EST Gender Identity Male 03/30/2023 3:15 PM EST Sexual Orientation Not on file documented as of this encounter Plan of Treatment Upcoming Encounters Date Type Department Care Team (Late st Contact Info) Description 06/28/2024 4:30 PM EDT Office Visit [facility] [address] [place] [address] Janes [place], PERRY [address] [facility] [address] [place] [address] documented as of this encounter Visit Diagnoses Not on filedocumented in this encounter Care Teams Research Instructor Relationship Specialty Start Date End Date Provider, MD [address] [place] [address] PCP - General Internal Medicine 03/30/23 documented as of this encounter
== END 2024-04-12 09:16 | disposition home or self-care (01) ==
PROVIDERS: PCP Internal Medicine; Visit Provider Internal Medicine
DX: G20.A1 Parkinson's disease without dyskinesia, without mention of fluctuations (principal)

== ENCOUNTER → 2024-04-12 08:48 | Outpatient (BNVA) | payer MEDICARE, SELFPAY | PROVIDERS: PCP Internal Medicine; Visit Provider Internal Medicine | DX: G20.A1 Parkinson's disease without dyskinesia, without mention of fluctuations (principal) | CPT/HCPCS: 99212 ==

== ENCOUNTER 2024-07-12 10:26 | Outpatient (AMB) | payer MEDICARE, SELFPAY ==
--- NOTE | 2024-07-12 10:31 | MHC.PC.OV ---
Vital Signs 07/12/24 10:41 Height 5 ft 10 in Weight 216 lb BMI 31.0 BP 128/86 Blood Pressure Location Rt brachial Position Sitting Pulse 75 Pulse Source Pulse Oximeter Temp 97.5 F Temp Source Temporal Artery Scan Pulse Oximetry (%) 98 Oxygen Delivery Method Room Air Intake Visit Reasons: Transfer of Care from Dr. Stewart / [facility] f/u [employer] Required: No Accompanied by: Self / Same As Patient Allergies moxifloxacin [From Avelox] Allergy (Mild, Verified 07/12/24 11:00) Hives acetaminophen [Percocet] Adverse Reaction (Unknown, Verified 07/12/24 11:00) vomiting oxycodone [Percocet] Adverse Reaction (Unknown, Verified 07/12/24 11:00) vomiting Medication List - Last Reconciled 07/12/24 by Daljit Ferro PA-C cyanocobalamin (vitamin B-12) 1,000 mcg PO DAILY propranolol 20 mg PO BID thiamine HCl (vitamin B1) (Vitamin B-1) 100 mg PO DAILY Tobacco use date assessed: 04/12/24 Fall risk assessment: No Falls in past year Last assessed Fall Risk: 07/12/24 Dental Screening Dental Screen Date: 04/12/24 HPI Transfer of Care from Dr. Stewart [facility] f[facility]u HPI Details Patient is a 68-year-old male here today for a transfer of care visit. Previous PCP was Dr. Stewart. Patient has a past history significant movement disorder and borderline high cholesterol. Concern--> he reports he does not sleep well throughout the night and often during a day falls asleep watching TV. He reports that this has been a problem over the last few years. He is not particularly tried much [id number] sleeping aids. PLAN: Willing to try hydroxyzine 25 mg before bed to help induce sleep. .. 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 It has shown resistance to pharmacological interventions(carbidopa levodopa) and continues to impede certain daily activities. As per history, propranolol was introduced, titrated upwards recently, but demonstration of improvement is pending. .. Hyperlipidemia: Patient has had a long history hyperlipidemia, he is not interested in statin therapy. We did discuss other supplements such as Newton threes and red yeast rice to help reduce his cholesterol. .. History of basal cell carcinoma of the nose: His skin lesion was excised this March, having undergone reconstructive surgery requiring a multidisciplinary surgical approach and entails postoperative management strictly avoiding strenuous activities affecting weight gain postoperatively. .. [facility] Medical History (Updated 07/13/24 @ 07:19 by Daljit Ferro PA-C) Basal cell carcinoma (BCC) in situ of skin Obesity Hyperlipidemia History of inguinal hernia Surgical History History of inguinal hernia repair History of cystoscopy History of knee surgery Family History Father Prostate cancer Mother CAD (coronary artery disease) Social History Housing: House Alcohol intake: never Patient Tobacco Use Status: Never used Tobacco Tobacco use type: Cigarette e-Cigarette/Vaping Use: Never Used Second Hand Smoke Exposure: No service: No Current occupational status: employed 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 Cognitive needs: No Hearing needs: No Vision needs: Yes (Glasses) Questionnaire Thrive Questionnaire Date Thrive assessed: 04/12/24 AUDIT C Alcohol Use Questionnaire (AUDIT-C) 3. How often do you have six or more drinks on one occasion?: Never Total Score: 0 JACQUES-7 AMB Questionnaire JACQUES-7 Date JACQUES - 7 assessed: 04/12/24 Source: Developed by Drs. Cachorro Grant, Darby Farmer, Alonso Young and colleagues, with an educational roro from [employer]. Review of Systems Const Denies headache(s) Eyes Denies loss of vision ENT Denies vertigo, Denies dizziness, Denies headache(s) and Denies sore throat Card Denies chest pain, Denies leg edema and Denies lightheadedness Resp Denies cough, Denies hemoptysis and Denies wheezing GI Denies abdominal pain, Denies melena, Denies constipation, Denies diarrhea and Denies vomiting Denies dysuria, Denies urinary frequency and Denies urinary urgency Musc Denies arthralgias, Denies joint swelling, Denies numbness and Denies tingling Neuro Denies Abnormal speech present, Denies behavioral changes, Denies vertigo, Denies dizziness, Denies headache(s), Denies loss of vision, Denies memory loss, Denies numbness and Denies tingling Psych Denies anxiety, Denies behavioral changes, Denies depression, Denies memory loss and Denies panic attacks Jose Luis/Lymph Denies easy bleeding and Denies easy bruising Aller/Immun Denies wheezing Physical exam (Primary Care) Vital Signs: Last Vital Signs Temp 97.5 F 07/12/24 10:41 Pulse 75 07/12/24 10:41 BP 128/86 07/12/24 10:41 Pulse Ox 98 07/12/24 10:41 Oxygen Delivery Method Room Air 07/12/24 10:41 BMI result Body Mass Index 31.0 Tobacco/Smoking Status: Tobacco use Status Tobacco use date assessed 04/12/24 07/12/24 10:31 Patient Tobacco Use Status Never used Tobacco 07/12/24 10:31 Tobacco use type Cigarette 07/12/24 10:31 e-Cigarette/Vaping Use Never Used 07/12/24 10:31 Thrive Assessment: Date of Thrive Assessment Date Thrive assessed 04/12/24 07/12/24 10:31 Const General: healthy appearing, no acute distress, alert and awake Nutritional Appearance: well nourished Orientation/consciousness: oriented to person, oriented to place and oriented to time HENMT Ears: TM's normal bilaterally General nose exam: Normal nasal mucous membranes and turbinates present Eyes Conjunctivae: conjunctivae normal Sclerae: sclerae normal Pupils: Equal, round and reactive pupils present Neck Neck: Yes no lymphadenopathy and Yes no JVD Thyroid: Thyroid normal Carotids: no bruits Resp Effort & Inspection: normal respiratory effort and not tachypneic Auscultation: no crackles, no rales, no rhonchi and no wheezes Cardio Rate: regular rate Rhythm: regular rhythm Heart sounds: no murmurs and normal S1 and S2 GI Palpation (GI): Soft to palpation, nontender, no hepatomegaly and no splenomegaly Auscultation: normal bowel sounds Skin General skin exam: no rashes or lesions noted and dry skin Neuro General: oriented to person, oriented to place and oriented to time Cranial nerves: Yes Equal, round and reactive pupils present Speech: No Abnormal speech present Gait exam (Neuro): Normal gait present Motor exam (neuro): no tremor noted Extrem Right upper extremity: full ROM Left upper extremity: full ROM Right lower extremity: full ROM; no edema Left lower extremity: full ROM; no edema Psych Mental Status: mental status grossly normal Speech and movement: Normal speech and movement present Affect: normal affect Attitude: cooperative Thought process: Normal thought process present Coding Level of Care Code Est Pt Level 4 (17030) Diagnoses Tremors of nervous system R25.1 Mixed hyperlipidemia E78.2 Hyperlipidemia type: mixed hyperlipidemia Class 1 obesity E66.811 Left shoulder tendonitis M77.8 Primary insomnia F51.01 Insomnia type: primary Assessment & Plan Assessment & Plan (1) Tremors of nervous system: Code(s): R25.1 - Tremor, unspecified Category: Medical Plan: Tremor remains symptomatic despite propranolol initialization. Previous Carbidopa use proved inefficacious. Ongoing assessment of therapeutic response is needed to guide further management adjustments. (2) Hyperlipidemia: Code(s): E78.5 - Hyperlipidemia, unspecified Category: Medical Qualifiers: Hyperlipidemia type: mixed hyperlipidemia Qualified Code(s): E78.2 - Mixed hyperlipidemia Plan: Dyslipidemia management focuses on non-statin methods due to intolerance. Ongoing dietary adjustments and supplementation will complement regular lipid surveillance and dietetic counseling. He is willing to speak with a dietitian about low-cholesterol diet (3) Class 1 obesity: Code(s): E66.811 - Obesity, class 1 Category: Medical Plan: Patient does understand his BMI is over 30 will work on being more physically active and adapting to better eating habits to reduce his weight (4) Left shoulder tendonitis: Code(s): M77.8 - Other enthesopathies, not elsewhere classified Category: Medical Plan: Limited range in shoulder movement persists post-injury. Previous therapy provided limited benefit. Re-evaluation continues as guidelines for subsequent treatments or procedural interventions depend on symptomatic evolution. (5) Insomnia: Code(s): G47.00 - Insomnia, unspecified Category: Medical Qualifiers: Insomnia type: primary Qualified Code(s): F51.01 - Primary insomnia Plan: As per HPI he is willing to try hydroxyzine 25 mg before bed to help induce sleep. Orders: Orders Complete Blood Count no Diff 07/12/24 E78.5 - Hyperlipidemia, unspecified Prostate Specific Antigen Scr 07/12/24 E78.5 - Hyperlipidemia, unspecified, Z12.5 - Encounter for screening for malignant neoplasm of prostate Comprehensive [place]. Panel Fast 07/12/24 E78.5 - Hyperlipidemia, unspecified Lipid Panel 07/12/24 E78.5 - Hyperlipidemia, unspecified Referrals Nutrition/Dietitian Referral E78.5 - Hyperlipidemia, unspecified Medications: New hydroxyzine HCl 25 mg PO BEDTIME 21 tabs 1RF 21 days G47.00 - Insomnia, unspecified
[2024-07-12 10:41] VITALS: BP 128/86; PULSE 75; TEMP 36.4; O2SAT 98; BMI 31.0
--- OUTSIDE RECORDS SUMMARY | 2024-07-12 12:17 | XMS_ITS | Clinical Summary ---
Author Organization Formerly [facility] Address [address] [place] [address] Care Team Providers Care Tank Car Reconditioner Name Role Phone Provider, External MD Primary Care Provider [phone] Allergies Active Allergy Reactions Criticality Noted Date Comments Oxycodone-Acetaminophen GI Intolerance/Nausea/Vomiting Low 01/24/2020 Medications thiamine (VITAMIN B-1) 100 mg tabletIndicatio ns:Thiamine deficiency Take 1 tablet (100 mg total) by mouth daily. 90 tablet 3 4 Active cyanocobalamin (VITAMIN B-12) 1000 MCG tabletIndicatio ns:B12 deficiency Take 1 tablet (1,000 mcg total) by mouth daily. 90 tablet 3 4 Active propranolol (INDERAL) 10 MG tabletIndicatio ns:Mixed action and resting tremor Take 1 tablet twice daily for a week, then increase to 2 tabs (20mg) twice daily. 120 tablet 3 5 Active brimonidine (ALPHAGAN) 0.15 % ophthalmic solution 1 drop 3 (three) times a day. 06/29/19 25 Discontinu ed(Med List Clean-up/O ld Med - No E-Cancel/N o AVS) carbidopa-levod opa (SINEMET) 25-100 MG per tabletIndicatio ns:Mixed action and resting tremor Take 1 tablet by mouth 3 (three) times a day. 90 tablet 3 5 06/29/19 25 Discontinu ed(Med List Clean-up/O ld Med - No E-Cancel/N o AVS) ibuprofen (MOTRIN) 600 MG tablet Take 1 tablet (600 mg total) by mouth 4 times daily (every 6 hours) as needed. 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 Resolved Problems Problem Noted Date Diagnosed Date Resolved Date Primary parkinsonism 09/14/2023 025 Encounters Date Type Department Care Team Description 06/28/2024 4:30 PM EDT Office Visit [facility] [address] [phone] Janes Purvis APRN Mixed action and resting tremor (Primary Dx) 06/28/2024 Travel 06/16/2024 Telephone [facility] [address] [phone] Janes Purvis APRN Appointment 06/13/2024 Telephone [facility] [address] [phone] Vic Zee MD Other 05/16/2024 4:00 PM EST Office Visit [facility] [address] [phone] Vic Zee MD Mixed action and resting tremor (Primary Dx) 05/16/2024 Travel 04/13/2024 Telephone [facility] [address] [phone] Janes Purvis APRN Appointment from Last 3 Months Social History Tobacco Use Types Packs/Day Years Used Date Smoking Tobacco: Never Smokeless Tobacco: Never Tobacco Cessation:Counseling Given: Not Answered Alcohol Use Standard Drinks/Week Comments Not Currently 0 (1 standard drink = 0.6 oz pur e alcohol) PHQ-2 Answer Date Recorded PHQ-2 Total Score 0 06/28/2024 Sex and Gender Information Value Date Recorded Sex Assigned at Male 03/30/2023 3:15 PM EST Legal Sex Male 7:41 AM EST Gender Identity Male 03/30/2023 3:15 PM EST Sexual Orientation Not on file Last Filed Vital Signs Vital Sign Reading Time Taken Comments Blood Pressure 143/92 06/28/2024 4:22 PM EDT Pulse 71 06/28/2024 4:22 PM EDT Temperature - - Respiratory Rate - - Oxygen Saturation - - Inhaled Oxygen Concentration - - Weight 98.9 kg (218 lb) 06/28/2024 4:22 PM EDT Height 177.8 cm (5' 10 ) 04/11/2024 8:52 AM EST Body Mass Index 31.28 04/11/2024 8:52 AM EST Plan of Treatment Upcoming Encounters Date Type Department Care Team (Late st Contact Info) Description 09/20/2024 8:10 AM EDT Office Visit [facility] [address] [phone] Janes Purvis APRN [address] [place] [address] [place] [id number] 03/01/2025 9:30 AM EST Office Visit [facility] [address] [phone] Janes Purvis APRN [address] [place] [address] [place] [id number] Health Maintenance Due Date Last Done Comments [...] on patient's age to complete this topic Procedures Procedure Name Priority Date/Time Associated Diagnosis Comments METHYLMALONIC ACID AND HOMOCYSTEINE (Just Above Cost 13231) Routine 04/17/2024 8:08 AM EST B12 deficiency FOLATE LEVEL Routine 04/17/2024 8:08 AM EST B12 deficiency VITAMIN B12 Routine 04/17/2024 8:08 AM EST B12 deficiency VITAMIN B1, WHOLE BLOOD Routine 04/17/2024 8:08 AM EST Thiamine deficiency from Last 3 Months Results * (ABNORMAL) Methylmalonic Acid and Homocysteine ([facility] [id number]) (04/17/2024 8:08 AM EST) Methylmalonic Acid 137 69 - 390 nmol/L [facility] [employer] [facility] [place], Comment: Serum methylmalonic acid (MMA) levels are used to diagnose and monitor several rare inborn errors of metabolism, including methylmalonic aciduria. The enzymatic conversion of MMA to succinic acid requires vitamin B12 (adenosyl-cobalamin) as a cofactor. Serum MMA levels are also used for assessing functional vitamin B12 deficiency. Vitamin B12 is essential for neurodevelopment, particularly early in . Undiagnosed maternal vitamin B12 deficiency may be associated with adverse / outcomes, such as neural tube defects and intrauterine growth restriction. [facility] utilized Multi-Modal Decomposition (MMD) analysis to establish first and second trimester-specific MMA reference intervals in , as given below: MMA, First trimester (<13 wks gestation): 58-167 nmol/L MMA, Second trimester (13-23 wks gestation): 63-241 nmol/L This test was developed and its analytical performance characteristics have been determined by [employer]. It has not been cleared or approved by FDA. This assay has been validated pursuant to the CLIA regulations and is used for clinical purposes. Homocysteine 11.4(H) <11.4 umol/L [facility] [employer] [facility] [place], Comment: Homocysteine is increased by functional deficiency of folate or vitamin B12. Testing for methylmalonic acid differentiates between these deficiencies. Other causes of increased homocysteine include renal failure, folate antagonists such as methotrexate and phenytoin, and exposure to nitrous oxide. Radha Schmidt, et al. [employer] Med. 1999;131(5):331-9. 04/17/2024 8:08 AM EST 04/17/2024 8:08 AM EST Narrative [facility] - 04/22/2024 11:44 AM EST FASTING:YES FASTING: YES Vic Zee MD LAB BLOOD ORDERABLES Final Result Performing Organization Address [facility] Co de Phone Number [facility], [address] [place] [address] * (ABNORMAL) VITAMIN B1, WHOLE BLOOD (04/17/2024 8:08 AM EST) [facility] Vitamin B1, Whole Blood 192(H) 78 - 185 nmol/L [facility] Comment: Vitamin supplementation within 24 hours prior to blood draw may affect the accuracy of the results. This test was developed and its analytical performance characteristics have been determined by [employer] [place], [place]. It has not been cleared or approved by the U.S. Food and Drug Administration. This assay has been validated pursuant to the CLIA regulations and is used for clinical purposes. Blood Blood specimen / Unknown 04/17/2024 8:08 AM EST 04/17/2024 8:08 AM EST Narrative [facility] - 04/22/2024 11:44 AM EST FASTING:YES FASTING: YES Vic Zee MD LAB BLOOD ORDERABLES Final Result Performing Organization Address City/[facility]/ZIP Co de Phone Number [employer] [address] [place] [address] * Folate Level (04/17/2024 8:08 AM EST) Folate, Serum 23.3 ng/mL [facility] Comment: ? Reference Range ? Low: ? <3.4 ? Borderline: ?3.4-5.4 ? Normal: ?>5.4 Blood Blood specimen / Unknown 04/17/2024 8:08 AM EST 04/17/2024 8:08 AM EST Narrative [facility] - 04/22/2024 11:44 AM EST FASTING:YES FASTING: YES Vic Zee MD LAB BLOOD ORDERABLES Final Result Performing Organization Address [facility] de Phone Number [address] [place] [address] * VITAMIN B12 (04/17/2024 8:08 AM EST) Vitamin B12 589 200 - 1,100 pg/mL [facility] Blood Blood specimen / Unknown 04/17/2024 8:08 AM EST 04/17/2024 8:08 AM EST Narrative [facility] - 04/22/2024 11:44 AM EST FASTING:YES FASTING: YES Vic Zee MD LAB BLOOD ORDERABLES Final Result Performing Organization Address [facility] de Phone Number [address] [place] [address] from Last 3 Months Insurance [facility] MEDICARE MEDICARE PART A & B Care Teams Tank Car Reconditioner Relationship Specialty Start Date End Date Provider, MD [address] [place] [address] PCP - General Internal Medicine 03/30/23
== END 2024-07-12 11:32 | disposition home or self-care (01) ==
LOC: HO.HMCH 10:26
PROVIDERS: PCP Physician Assistant; Visit Provider Physician Assistant
DX: R25.1 Tremor, unspecified (principal); E66.811 Obesity, class 1; Z68.31 Body mass index [BMI] 31.0-31.9, adult; E78.2 Mixed hyperlipidemia; M77.8 Other enthesopathies, not elsewhere classified; F51.01 Primary insomnia

== ENCOUNTER → 2024-07-12 10:26 | Outpatient (BNVA) | payer MEDICARE, SELFPAY | PROVIDERS: PCP Physician Assistant; Visit Provider Physician Assistant | DX: R25.1 Tremor, unspecified (principal); E78.2 Mixed hyperlipidemia; E66.811 Obesity, class 1; M77.8 Other enthesopathies, not elsewhere classified; F51.01 Primary insomnia | CPT/HCPCS: 99212 ==

== ENCOUNTER 2024-07-27 08:32 | Outpatient (AMB) | payer MEDICARE, SELFPAY ==
--- NOTE | 2024-07-27 08:37 | A.OFFPC_ITS ---
Vital Signs 07/27/24 08:42 Height 5 ft 10 in Weight 218 lb 2 oz BMI 31.3 BP 100/62 Blood Pressure Location Lt brachial Position Sitting Pulse 69 Pulse Source Pulse Oximeter Pulse Oximetry (%) 97 Oxygen Delivery Method Room Air Intake Visit Reasons: Ear irrigation Intake Note: Patient is here to follow up on Ear irrigation. Medical Device Required: No Mailroom Manager: Not Required per policy Accompanied by: Self / Same As Patient Allergies moxifloxacin [From Avelox] Allergy (Mild, Verified 07/27/24 09:03) Hives acetaminophen [Percocet] Adverse Reaction (Unknown, Verified 07/27/24 09:03) vomiting oxycodone [Percocet] Adverse Reaction (Unknown, Verified 07/27/24 09:03) vomiting Tobacco use date assessed: 07/27/24 Fall risk assessment: No Falls in past year Last assessed Fall Risk: 07/27/24 Dental Screening Dental Screen Date: 04/12/24 HPI Ear irrigation HPI Details Patient is a 69-year-old male here today for ear cleaning. He has bilateral cerumen impactions. He did do ear drops over the last week at home. [facility] Medical History (Updated 07/27/24 @ 09:04 by Daljit Ferro PA-C) Basal cell carcinoma (BCC) in situ of skin Obesity Hyperlipidemia History of inguinal hernia Surgical History History of inguinal hernia repair History of cystoscopy History of knee surgery Family History Father Prostate cancer Mother CAD (coronary artery disease) Social History Housing: House Alcohol intake: never Patient Tobacco Use Status: Never used Tobacco Tobacco use type: Cigarette e-Cigarette/Vaping Use: Never Used Second Hand Smoke Exposure: No service: No Current occupational status: employed 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 Cognitive needs: No Hearing needs: No Vision needs: Yes (Glasses) Questionnaire PHQ-9 Over the last 2 weeks, how often have you been bothered by any of the following problems? 1. Little interest or pleasure in doing things: more than half the days Source: Developed by Drs. Darby Muniz, Alonso Young and colleagues, with an educational roro from [employer]. Thrive Questionnaire Date Thrive assessed: 04/12/24 JACQUES-7 AMB Questionnaire JACQUES-7 Date JACQUES - 7 assessed: 04/12/24 Source: Developed by Darby Doty, Alonso Young and colleagues, with an educational roro from [employer]. Review of Systems Const Denies headache(s) Eyes Denies loss of vision ENT Denies vertigo, Denies dizziness, Denies headache(s) and Denies sore throat Card Denies chest pain, Denies leg edema and Denies lightheadedness Resp Denies cough, Denies hemoptysis and Denies wheezing GI Denies abdominal pain, Denies melena, Denies constipation, Denies diarrhea and Denies vomiting Denies dysuria, Denies urinary frequency and Denies urinary urgency Musc Denies arthralgias, Denies joint swelling, Denies numbness and Denies tingling Neuro Denies Abnormal speech present, Denies behavioral changes, Denies vertigo, Denies dizziness, Denies headache(s), Denies loss of vision, Denies memory loss, Denies numbness and Denies tingling Psych Denies anxiety, Denies behavioral changes, Denies depression, Denies memory loss and Denies panic attacks Jose Luis/Lymph Denies easy bleeding and Denies easy bruising Aller/Immun Denies wheezing Physical exam (Primary Care) Vital Signs: Last Vital Signs Pulse 69 07/27/24 08:42 BP 100/62 07/27/24 08:42 Pulse Ox 97 07/27/24 08:42 Oxygen Delivery Method Room Air 07/27/24 08:42 BMI result Body Mass Index 31.3 Tobacco/Smoking Status: Tobacco use Status Tobacco use date assessed 07/27/24 07/27/24 08:45 Patient Tobacco Use Status Never used Tobacco 07/27/24 08:40 Tobacco use type Cigarette 07/27/24 08:40 e-Cigarette/Vaping Use Never Used 07/27/24 08:40 Thrive Assessment: Date of Thrive Assessment Date Thrive assessed 04/12/24 07/27/24 08:40 Const General: healthy appearing, no acute distress, alert and awake Nutritional Appearance: well nourished Orientation/consciousness: oriented to person, oriented to place and oriented to time HENMT Other: BILATERAL EAR EXTERNAL CANALS WITH CERUMEN IMPACTIONS. AFTER LAVAGE CLEAR WITHOUT ANY EVIDENCE INFECTION. Ears: TM's normal bilaterally General nose exam: Normal nasal mucous membranes and turbinates present Eyes Conjunctivae: conjunctivae normal Sclerae: sclerae normal Pupils: Equal, round and reactive pupils present Neck Neck: Yes no lymphadenopathy and Yes no JVD Thyroid: Thyroid normal Carotids: no bruits Resp Effort & Inspection: normal respiratory effort and not tachypneic Auscultation: no crackles, no rales, no rhonchi and no wheezes Cardio Rate: regular rate Rhythm: regular rhythm Heart sounds: no murmurs and normal S1 and S2 GI Palpation (GI): Soft to palpation, nontender, no hepatomegaly and no splenomegaly Auscultation: normal bowel sounds Skin General skin exam: no rashes or lesions noted and dry skin Neuro General: oriented to person, oriented to place and oriented to time Cranial nerves: Yes Equal, round and reactive pupils present Speech: No Abnormal speech present Gait exam (Neuro): Normal gait present Motor exam (neuro): no tremor noted Extrem Right upper extremity: full ROM Left upper extremity: full ROM Right lower extremity: full ROM; no edema Left lower extremity: full ROM; no edema Psych Mental Status: mental status grossly normal Speech and movement: Normal speech and movement present Affect: normal affect Attitude: cooperative Thought process: Normal thought process present Office Procedures Cerumen Removal From which ear canal was the cerumen removed: bilateral Removal: irrigation and otoscope w/curette Notes: patient tolerated procedure well and no complications 77382-Rlr Irrigation/Lavage Coding Level of Care Code Est Pt Level 3 (38267) Diagnoses Impacted cerumen of both ears H61.23 CPT Codes Office Procedure - CPT: 31806-Kor Irrigation/Lavage ([id number]) Assessment & Plan Assessment & Plan (1) Impacted cerumen of both ears: Code(s): H61.23 - Impacted cerumen, bilateral Category: Medical Plan: Patient underwent bilateral at your lavage without any complication.
[2024-07-27 08:42] VITALS: BP 100/62; PULSE 69; O2SAT 97; BMI 31.3
--- OUTSIDE RECORDS SUMMARY | 2024-07-27 08:45 | XMS_ITS | Clinical Summary ---
Author Organization [facility] Address [address] [place] [address] Care Team Providers Care Stevedore Dock Name Role Phone Provider, External MD Primary Care Provider [phone] Allergies Active Allergy Reactions Criticality Noted Date [...] 6 hours) as needed. for pain 06/29/19 Discontinu ed(Med List Clean-up/O ld Med - [...] Description 06/28/2024 4:30 PM EDT Office Visit [facility] [address] [phone] Janes Purvis APRN Mixed action and resting tremor (Primary Dx) 06/28/2024 Travel 06/16/2024 Telephone [facility] [address] [phone] Janes Purvis APRN Appointment 06/13/2024 Telephone [facility] [address] [phone] Vic Zee MD Other 05/16/2024 4:00 PM EST Office Visit [facility] [address] [phone] Vic Zee MD Mixed action and resting tremor (Primary Dx) 05/16/2024 Travel from Last 3 Months Social History Tobacco [...] Description 09/20/2024 8:10 AM EDT Office Visit [facility] [address] [place] [phone] Janes Purvis, PERRY [address] [place] [address] [place] [phone] 03/01/2025 9:30 AM EST Office Visit [facility] [address] [place] [address] Janes Purvis, PERRY [address] [place] [address] [place] [phone] Health Maintenance Due Date Last Done Comments Hepatitis C Virus Screening 1955 DTaP/Tdap/Td Vaccines (1 - Tdap) 1976 Colonoscopy 2002 Pneumococcal Vaccines 50+ (1 of 1 - PCV) 07/24/2007 Zoster (Shingles) Vaccine (1 of 2) 07/24/2007 COVID-19 Vaccine ( - 2023-2 5 season) 2023 Influenza Vaccine 10/20/2024 RSV Vaccine 60 years and old er and Patients (1 - 1-dose 75+ series) 2032 Hepatitis B Vaccines Aged Out No long er eligible based on patient's age to complete this topic Insurance [facility] MEDICARE MEDICARE PART A & B Care Teams Stevedore Dock Relationship Specialty Start Date End Date Provider, MD Colten [address] [place] [address] PCP - General Internal Medicine 03/30/23
== END 2024-07-27 09:16 | disposition home or self-care (01) ==
LOC: HO.HMCH 08:32
PROVIDERS: PCP Physician Assistant; Visit Provider Physician Assistant
DX: H61.23 Impacted cerumen, bilateral (principal)

== ENCOUNTER → 2024-07-27 08:32 | Outpatient (BNVA) | payer MEDICARE, SELFPAY | PROVIDERS: PCP Physician Assistant; Visit Provider Physician Assistant | DX: H61.23 Impacted cerumen, bilateral (principal) | CPT/HCPCS: 69210; 99212 ==

== ENCOUNTER 2024-08-24 10:02 | Outpatient (AMB) | payer MEDICARE, SELFPAY ==
--- OUTSIDE RECORDS SUMMARY | 2024-08-24 11:34 | XMS_ITS | Clinical Summary ---
Author Organization [facility] Address [address] [place] [address] Care Team Providers Care Parts Sales Counterperson Name Role Phone Provider, External MD Primary Care Provider [phone] Allergies Active Allergy Reactions Criticality Noted Date Comments Oxycodone-Acetaminophen GI Intolerance/Nausea/Vomiting Low 01/24/2020 Medications thiamine (VITAMIN B-1) 100 mg tabletIndicatio ns:Thiamine deficiency Take 1 tablet (100 mg total) by mouth daily. 90 tablet 3 12/10/2023 Active cyanocobalamin (VITAMIN B-12) 1000 MCG tabletIndicatio ns:B12 deficiency Take 1 tablet (1,000 mcg total) by mouth daily. 90 tablet 3 12/10/2023 Active propranolol (INDERAL) 10 MG tabletIndicatio ns:Mixed action and resting tremor Take 1 tablet twice daily for a week, then increase to 2 tabs (20mg) twice daily. 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 [place] [place] Neurology [address] [phone] Janes Purvis APRN Mixed action and resting tremor (Primary Dx) 06/28/2024 Travel 06/16/[address] [facility] [place] [place] Neurology [address] [phone] Janes Purvis APRN Appointment 06/13/[address] [facility] [place] [place] Neurology [address] [phone] Vic Zee MD Other from Last 3 Months Social History Tobacco [...] Description 09/20/2024 8:10 AM EDT Office Visit [facility] [place] [place] Neurology [address] [phone] Janes Purvis APRN [address] [phone] 03/01/2025 9:30 AM EST Office Visit [facility] [place] [place] Neurology [address] [phone] Yaniv Janes [place], FIGHTING VEHICLE SYSTEMS MAINTAINER [address] [facility] [address] [place] [address] Health Maintenance Due Date Last Done Comments Hepatitis C Virus Screening 1955 DTaP/Tdap/Td Vaccines (1 - Tdap) 1976 Colonoscopy 2002 Pneumococcal Vaccines 50+ (1 of 1 - PCV) 07/24/2007 Zoster (Shingles) Vaccine (1 of 2) 07/24/2007 COVID-19 Vaccine (1 - 2023-2 5 season) 2023 Influenza Vaccine 10/20/2024 RSV Vaccine 60 years and old er and Patients (1 - 1-dose 75+ series) 2032 Hepatitis B Vaccines Aged Out No long er eligible based on patient's age to complete this topic Insurance [facility] MEDICARE MEDICARE PART A & B Care Teams Parts Sales Counterperson Relationship Specialty Start Date End Date Provider, MD Colten [address] [place] [address] PCP - General Internal Medicine 03/30/23
--- NOTE | 2024-08-24 12:32 | A.OFFVIS_ITS ---
VS Expanded 08/24/24 13:01 Height 5 ft 10 in Weight 217 lb 2.2 oz BMI 31.2 Intake Visit Reasons: Hyperlipidemia, unspecified Allergies moxifloxacin (From Avelox) Allergy (Mild, Verified 07/27/24 09:03) Hives acetaminophen (Percocet) Adverse Reaction (Unknown, Verified 07/27/24 09:03) vomiting oxycodone (Percocet) Adverse Reaction (Unknown, Verified 07/27/24 09:03) vomiting Nutrition Presentation Details: Pt presents for MNT for hyperlipidemia, referred by PCP Pt presents with during this appointment. Pt reports, in general , having made diet modifications, however notices increased snacks or portion sizes food frequency fruits: 2-3/d vegetables: 4/d dairy : 4+/d fish :2x/wk fried foods 0-1/m pastries/similar: 3/wk beverages:water/milk BS Monitoring Most Recent Diabetes Results: Cholesterol, (<200) 223 mg/dL H 04/07/24 HDL Cholesterol, (>40) 45 mg/dL 04/07/24 Triglycerides, (<150) 126 mg/dL 04/07/24 XAV-Vshnqqy-Tx.Jeor Equation Height: 5 ft 10 in Weight: 217 lb Resting Metabolic Rate: 1769.92 Calculated Activity Level: Mild Activity Calories Needed to Maintain Weight: 2433.64 Diagnosis Nutrition problem #1: altered nutrition labs As related to (etiology) #1: diagnosis As evidenced by (sign/symptom) #1: abnormal lab values (Chol >200 mg/dl) Monitoring/Goals Nutrition problem monitoring: level of knowledge/skill (working towards reducing sat'd fats and including unsat'd fats) Learning/Education Readiness to learn: good Stages of change: preparation Educational materials provided: Yes (Healthy plate method, list of saturated fats and unsaturated fat choices ) Follow up Follow-up frequency: monthly [facility] Medical History (Updated 09/06/24 @ 18:[address], LDN) Basal cell carcinoma (BCC) in situ of skin Obesity Hyperlipidemia History of inguinal hernia Surgical History History of inguinal hernia repair History of cystoscopy History of knee surgery Family History Father Prostate cancer Mother CAD (coronary artery disease) Social History Housing: House Alcohol intake: never Patient Tobacco Use Status: Never used Tobacco Tobacco use type: Cigarette e-Cigarette/Vaping Use: Never Used Second Hand Smoke Exposure: No service: No Current occupational status: employed 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 Cognitive needs: No Hearing needs: No Vision needs: Yes (Glasses) Assessment & Plan Assessment & Plan (1) Hyperlipidemia: Comment: with obesity, BMI at 31 (09/13) Code(s): E78.5 - Hyperlipidemia, unspecified Category: Medical Qualifiers: Hyperlipidemia type: mixed hyperlipidemia Qualified Code(s): E78.2 - Mixed hyperlipidemia Plan: Wt: 99 Kg ( 09/13 ) Est kcal needs as per MSJ: 2400 (40% carb, 30% protein/fat) Est fluid needs as per 25-30 ml/d: 3000 Est prot per day as per 1-1.2 g/kg bw: 100 -120 Recommend fiber intake : 8-10 g per day and gradually increase to 25-28 g per day for women and 35-38 g for men or as tolerated Recommend sodium intake per day : less than 2300 mg Educated patient on: ( R = reviewed V = verbalizes understanding N/R = needs review N/A = not applicable * Food sources of carbohydrate, adequate serving sizes and its role in various health conditions: R V N/R * Differences between complex carbohydrates a simple carbohydrates, role of fiber in diet: R * Lean protein sources of foods: R * Differences between types of fats and role in diet (mono on saturated fat fatty acids, saturated fatty acids, trans fats): R * Food sources of sodium in salt and healthy modifications for heart health in kidney health: R V R/V * Vitamins and minerals: R * Healthy plate method concept: R V N/R * Physical activity: Benefits a precaution: R V N/R Patient Instructions: Practice mindful eating Switch to whole grain cereals/grains Switch to unsaturated fats and see list of adequate portions sizes Continue working on reducing pastries/processed meats Coding Level of Care Code Nutr Indiv Intake (18934) Diagnoses Mixed hyperlipidemia E78.2 Hyperlipidemia type: mixed hyperlipidemia Time Spent (min) 30
[2024-08-24 13:01] VITALS: BMI 31.2
[2024-09-06 18:56] VITALS: BMI 31.1
== END 2024-08-24 11:15 | disposition home or self-care (01) ==
LOC: HO.ENCR 10:02
PROVIDERS: PCP Physician Assistant; Visit Provider Dietitian, Registered
DX: E78.2 Mixed hyperlipidemia (principal)

== ENCOUNTER → 2024-08-24 10:02 | Outpatient (BNVA) | payer MEDICARE, SELFPAY | PROVIDERS: PCP Physician Assistant; Visit Provider Dietitian, Registered | DX: E78.2 Mixed hyperlipidemia (principal) | CPT/HCPCS: 97802 ==

== ENCOUNTER 2024-10-03 08:11 | Outpatient (AMB) | payer MEDICARE, SELFPAY ==
--- OUTSIDE RECORDS SUMMARY | 2024-10-03 08:15 | XMS_ITS | Patient Health Record ---
Author Organization [facility] Address [address] [place] [address] Care Team Providers Care Aircraft Engine Technician Name Role Phone Terry MONTES, Lisandro Primary Care Provider David Carrillo Unavailable [phone] Reason For Referral No Information Problems Problem Type SNOMED Code ICD Code Onset Dates Problem Status W/U Status Risk Notes Problem Metatarsalgia (35826316) Metatarsalgia (726.70) Active confirmed Plan Of Treatment Pending Test Test Name Order Date X ray : Foot, right 3V 02/09/2011 Insurance Providers Payer Name Payer Address Payer Phone Subscriber Number Group Number Insured Name Patient Relationship to Insured Coverage Start Date Coverage End Date [facility] [address] [place] [address] [phone] [id number] Rehan Trinh Self - patient is the insured
--- OUTSIDE RECORDS SUMMARY | 2024-10-03 08:15 | XMS_ITS | Clinical Summary ---
Author Organization [facility] Address [address] [place] [address] Care Team Providers Care Propagator Laborer Name Role Phone Daljit Ferro Primary Care Provider + Allergies Active Allergy Reactions Criticality Noted Date Comments Oxycodone-Acetaminophen GI Intolerance/Nausea/Vomiting Low 01/24/2020 Medications thiamine (VITAMIN B-1) 100 mg tabletIndicati ons:Thiamine deficiency Take 1 tablet (100 mg total) by mouth daily. 90 tablet 3 4 Active cyanocobalamin (VITAMIN B-12) 1000 MCG tabletIndicati ons:B12 deficiency Take 1 tablet (1,000 mcg total) by mouth daily. 90 tablet 3 4 Active propranolol (INDERAL LA) 60 MG 24 hr capsuleIndicat ions:Mixed action and resting tremor Take 1 capsule (60 mg total) by mouth daily. 30 capsule 3 5 Active propranolol (INDERAL) 10 MG tabletIndicati ons:Mixed action and resting tremor Take 1 tablet twice daily for a week, then increase to 2 tabs (20mg) twice daily. 120 tablet 3 5 025 Discontinued Active Problems Problem Noted Date Diagnosed Date Metatarsalgia 09/20/2024 Thiamine deficiency 04/11/2024 B12 deficiency 04/11/2024 Vitamin D deficiency 09/14/2023 Restless leg syndrome 09/14/2023 Mixed action and resting tremor 09/14/2023 Resolved Problems Problem Noted Date Diagnosed Date Resolved Date Primary parkinsonism 09/14/2023 025 Encounters Date Type Department Care Team Description 09/20/2024 8:10 AM EDT Office Visit [facility] Neurology [address] [phone] Janes Purvis APRN Mixed action and resting tremor (Primary Dx) 09/20/2024 Travel from Last 3 Months Social History Tobacco Use Types Packs/Day Years Used Date Smoking Tobacco: Never Smokeless Tobacco: Never Tobacco Cessation:Counseling Given: Not Answered Alcohol Use Standard Drinks/Week Comments Not Currently 0 (1 standard drink = 0.6 oz pur e alcohol) PHQ-2 Answer Date Recorded PHQ-2 Total Score 0 09/20/2024 Sex and Gender Information Value Date Recorded Sex Assigned at Male 03/30/2023 3:15 PM EST Legal Sex Male 7:41 AM EST Gender Identity Male 03/30/2023 3:15 PM EST Sexual Orientation Not on file Last Filed Vital Signs Vital Sign Reading Time Taken Comments Blood Pressure 128/80 09/20/2024 8:02 AM EDT Pulse 60 09/20/2024 8:02 AM EDT Temperature - - Respiratory Rate - - Oxygen Saturation - - Inhaled Oxygen Concentration - - Weight 97.5 kg (215 lb) 09/20/2024 8:02 AM EDT Height 177.8 cm (5' 10 ) 09/20/2024 8:02 AM EDT Body Mass Index 30.85 09/20/2024 8:02 AM EDT Plan of Treatment Upcoming Encounters Date Type Department Care Team (Late st Contact Info) Description 03/01/2025 9:30 AM EST Office Visit [facility] Neurology [address] [phone] Janes Purvis APRN [address] [address] Health Maintenance Due Date Last Done Comments Hepatitis C Virus Screening 1955 DTaP/Tdap/Td Vaccines (1 - Tdap) 1976 Colonoscopy 2002 Pneumococcal Vaccines 50+ (1 of 1 - PCV) 07/24/2007 Zoster (Shingles) Vaccine (1 of 2) 07/24/2007 COVID-19 Vaccine (2023-2 5 season) 2023 Influenza Vaccine 10/20/2024 RSV Vaccine 60 years and old er and Patients (1 - 1-dose 75+ series) 2032 Hepatitis B Vaccines Aged Out No long er eligible based on patient's age to complete this topic Insurance [facility] MEDICARE MEDICARE PART A & B Care Teams Propagator Laborer Relationship Specialty Start Date End Date Daljit Ferro PA [address] [place] [address] PCP - General Adult Health - PA/SHRUTHI/COMPRESSOR OPERATOR PORTABLE/RETAIL ASSOCIATE MANAGER BILINGUAL 09/20/24
--- OUTSIDE RECORDS SUMMARY | 2024-10-03 08:15 | XMS_ITS | Patient Health Record ---
Author Organization [facility] Address [address] [place] [address] Care Team Providers Care Cyber Security Systems Engineer Name Role Phone Terry MONTES, Lisandro Primary Care Provider Floyd Washington Jr Unavailable [phone] Allergies Allergen (clinical drug ingredient) Drug/Non Drug Allergy documented on EMR Reaction Allergy Type Onset Date Status acetaminophen / oxycodone Percocet Unknown Drug Allergy Active Reason For Referral No Information Medications Medication SIG (Take, Route, Frequency, Duration) Notes Start Date End Date Status Colyte with Flavor Packs 240 GM As directed Orally Over the specified time. for 1 day(s) Active Social History Tobacco Use: Social History Observation Description Date Details (start date - stop date) Never Smoker NA - NA Tobacco Use/Smoking Question Answer Notes Patient is a nonsmoker Alcohol Screen Question Answer Notes Did you have a drink contain ing alcohol in the past year? Yes How often did you have a dri nk containing alcohol in the past year? 2 to 4 times a month (2 points) How many drinks did you have on a typical day when you were drinking in the past year? 1 or 2 drinks (0 point) How often did you have 6 or more drinks on one occasion in the past year? Never (0 point) Points 2 Interpretation Negative Problems Problem Type SNOMED Code ICD Code Onset Dates Problem Status W/U Status Risk Notes Problem 580584326 Colon cancer screening (Z12.11) Active confirmed Problem 30561860 Encounter for other preprocedural examination (Z01.818) Active confirmed Plan Of Treatment Future Test Test Name Order Date COLONOSCOPY 08/06/2016 Insurance Providers Payer Name Payer Address Payer Phone Subscriber Number Group Number Insured Name Patient Relationship to Insured Coverage Start Date Coverage End Date [facility] [address] [facility] [place] [place] [phone] [id number] CARMELLA CRUZ Self - patient is the insured Medical (General) History Medical History History ICD Code nephrolithiasis Surgical History Surgery Date(Month/Year) hernia repair 06/2013 left knee arthroscopy cystoscopy
[2024-10-03 08:33] VITALS: BMI 30.6
--- NOTE | 2024-10-03 08:33 | MHC.AMNUTRGE ---
VS Expanded 10/03/24 08:33 Height 5 ft 10 in Weight 213 lb 2.992 oz BMI 30.6 Intake Visit Reasons: Hyperlipidemia, unspecified Allergies moxifloxacin (From Avelox) Allergy (Mild, Verified 07/27/24 09:03) Hives acetaminophen (Percocet) Adverse Reaction (Unknown, Verified 07/27/24 09:03) vomiting oxycodone (Percocet) Adverse Reaction (Unknown, Verified 07/27/24 09:03) vomiting Medication List - Last Reconciled 10/03/[address], LDN cyanocobalamin (vitamin B-12) 1,000 mcg PO DAILY hydroxyzine HCl 25 mg PO BEDTIME 21 days propranolol 30 mg PO BID pyridoxine (vitamin B6) 10 mg PO DAILY thiamine HCl (vitamin B1) (Vitamin B-1) 100 mg PO DAILY Nutrition Presentation Details: Pt presents for MNT for hyperlipidemia Pt reports working on diet modifications, reducing sugars/snacks, choosing fruits stationary bike 3 times/wk 15-20min Including fish 3 x/wk -smoked fish BS Monitoring Most Recent Diabetes Results: Cholesterol, (<200) 223 mg/dL H 04/07/24 HDL Cholesterol, (>40) 45 mg/dL 04/07/24 Triglycerides, (<150) 126 mg/dL 04/07/24 [facility] Medical History (Updated 09/06/24 @ 18:[address], LDN) Basal cell carcinoma (BCC) in situ of skin Obesity Hyperlipidemia History of inguinal hernia Surgical History History of inguinal hernia repair History of cystoscopy History of knee surgery Family History Father Prostate cancer Mother CAD (coronary artery disease) Social History Housing: House Alcohol intake: never Patient Tobacco Use Status: Never used Tobacco Tobacco use type: Cigarette e-Cigarette/Vaping Use: Never Used Second Hand Smoke Exposure: No service: No Current occupational status: employed 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 Cognitive needs: No Hearing needs: No Vision needs: Yes (Glasses) Assessment & Plan Assessment & Plan (1) Hyperlipidemia: Comment: with obesity, BMI at 31 (09/13) Code(s): E78.5 - Hyperlipidemia, unspecified Category: Medical Qualifiers: Hyperlipidemia type: mixed hyperlipidemia Qualified Code(s): E78.2 - Mixed hyperlipidemia Plan: Wt: 99 Kg ( 09/13 ), 97 kg (10/13) Est kcal needs as per MSJ: 2400 (40% carb, 30% protein/fat) Est fluid needs as per 25-30 ml/d: 3000 Est prot per day as per 1-1.2 g/kg bw: 100 -115 Recommend fiber intake : 8-10 g per day and gradually increase to 25-28 g per day for women and 35-38 g for men or as tolerated Recommend sodium intake per day : less than 2300 mg Educated patient on: ( R = reviewed V = verbalizes understanding N/R = needs review N/A = not applicable Food sources of carbohydrate, adequate serving sizes and its role in various health conditions: R V N/R Differences between complex carbohydrates a simple carbohydrates, role of fiber in diet: R Lean protein sources of foods: R Differences between types of fats and role in diet (mono on saturated fat fatty acids, saturated fatty acids, trans fats): R Food sources of sodium in salt and healthy modifications for heart health in kidney health: R Vitamins and minerals: R Healthy plate method concept: R Physical activity: Benefits a precaution: R Patient Instructions: Work on modifying recipes, example choose yogurt, olive oil , in place of sour cream/ferris/butter Mindful of amount of salt added to the foods (smoked foods will have more salt, thefore accompany with lower salt options (baked potato/vegetables) keep hydrated Coding Level of Care Code Nutr Indiv Subseq (31436) Diagnoses Mixed hyperlipidemia E78.2 Hyperlipidemia type: mixed hyperlipidemia Time Spent (min) 30
== END 2024-10-03 09:23 | disposition home or self-care (01) ==
LOC: HO.ENCR 08:11
PROVIDERS: PCP Physician Assistant; Visit Provider Dietitian, Registered
DX: E78.2 Mixed hyperlipidemia (principal)

== ENCOUNTER → 2024-10-03 08:11 | Outpatient (BNVA) | payer MEDICARE, SELFPAY | PROVIDERS: PCP Physician Assistant; Visit Provider Dietitian, Registered | DX: E78.2 Mixed hyperlipidemia (principal) | CPT/HCPCS: 97803 ==

== ENCOUNTER 2024-11-08 09:20 | Outpatient (AMB) | payer MEDICARE, SELFPAY ==
[2024-11-08 09:33] VITALS: BP 128/78; PULSE 67; RESP 16; TEMP 36.2; O2SAT 97; BMI 30.3
--- NOTE | 2024-11-08 09:33 | A.OFFPC_ITS ---
Vital Signs 11/08/24 09:33 Height 5 ft 10 in Weight 211 lb BMI 30.3 BP 128/78 Blood Pressure Location Lt brachial Position Sitting Respiration 16 Pulse 67 Pulse Source Pulse Oximeter Temp 97.1 F Temp Source Temporal Artery Scan Pulse Oximetry (%) 97 Oxygen Delivery Method Room Air Intake Visit Reasons: follow up Accompanied by: Spouse Allergies moxifloxacin (From Avelox) Allergy (Mild, Verified 11/08/24 09:39) Hives acetaminophen (Percocet) Adverse Reaction (Unknown, Verified 11/08/24 09:39) vomiting oxycodone (Percocet) Adverse Reaction (Unknown, Verified 11/08/24 09:39) vomiting Medication List - Last Reconciled 11/08/24 by Daljit Ferro PA-C cyanocobalamin (vitamin B-12) 1,000 mcg PO DAILY propranolol 20 mg PO BID pyridoxine (vitamin B6) 10 mg PO DAILY thiamine HCl (vitamin B1) (Vitamin B-1) 100 mg PO DAILY Tobacco use date assessed: 11/08/24 Fall risk assessment: No Falls in past year Last assessed Fall Risk: 11/08/24 Dental Screening Dental Screen Date: 11/08/24 Did you have a dental visit in the last 12 months?: Yes Did you have a dental problem in the last 6 months where you did not have access to dental care?: No Was dental information given to patient?: Patient has dentist HPI follow up HPI Details Patient is a 69-year-old male here today for a problem visit . Patient has a past history significant movement disorder and borderline high cholesterol. -- > The patient reports experiencing tr emors for the past two years, initially suspected to be Parkinson's disease, but later identified as essential tremor by a neurologist. The tremors have worsened over time, affecting his ability to perform daily tasks such as eating and using his right hand. He has been prescribed propranolol, which provided temporary relief, but the symptoms have persisted. He has been experiencing some increase weakness in his left upper extremity to which we are considering imaging of the cervical spine to evaluate for disc herniation The patient also reports significant daytime sleepiness and fatigue, which have been ongoing for nearly a year. A sleep study indicated a slightly elevated AHI in the supine position, suggesting possible obstructive sleep apnea, although a definitive diagnosis was not made. He experiences episodes of sudden sleep onset and snoring, which have not been resolved despite previous evaluations. Additionally, the patient has a history of heat intolerance, which has been particularly problematic during recent high temperatures. He avoids outdoor activities and remains indoors during hot weather, which has impacted his lifestyle. The patient has a history of vitamin B deficiency, which was previously identified and treated, but the fatigue persists. He also has a history of a rotator cuff tear, which was managed with physical therapy, but the symptoms have recurred. Recently, there has been a consideration of complex regional pain syndrome (CRPS) due to persistent pain and stiffness in his arm, although this diagnosis has not been confirmed. 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 Cognitive needs: No Hearing needs: No Vision needs: Yes (Glasses) Questionnaire PHQ-9 Over the last 2 weeks, how often have you been bothered by any of the following problems? 1. Little interest or pleasure in doing things: not at all 2. Feeling down, depressed, or hopeless: not at all 3. Trouble falling or staying asleep, or sleeping too much: nearly every day 4. Feeling tired or having little energy: nearly every day 5. Poor appetite or overeating: not at all 6. Feeling bad about yourself - or that you are a failure or have let yourself or your family down: not at all 7. Trouble concentrating on things, such as reading the newspaper or watching television: not at all 8. Moving or speaking so slowly that other people could have noticed. Or the opposite - being so fidgety or restless that you have been moving around a lot more than usual: not at all 9. Thoughts that you would be better off or of hurting yourself in some way: not at all Total score: 6 Depression Screening Interpretation: Negative Depression Screening Done: Yes Source: Developed by Drs. Cachorro Grant, Darby Farmer, Alonso Young and colleagues, with an educational roro from [employer]. Thrive Questionnaire Date Thrive assessed: 11/08/24 I am a: Patient What is your living situation today?: I have a steady place to live Within the past 12 months, did the food you bought not last and you didn't have the money to get more?: Never true Within the past 12 months, did you worry whether your food would run out before you got money to buy more?: Never true Do you have trouble paying for medicines?: No Do you have trouble getting transportation to medical appointments?: No Do you have trouble paying your heating and electricity bill?: No Do you have trouble taking care of your child, family member or friend?: No Do you have trouble with day-to-day activities such as bathing, preparing meals, shopping, managing finances, etc.?: No Are you currently unemployed and looking for a job?: No Are you interested in more education?: No Please select the resources that you would like help with: None Currently or been in a relationship where the following occur: No concerns reported THRIVE Score: 0 AUDIT C Alcohol Use Questionnaire (AUDIT-C) 1. How often do you have a drink containing alcohol?: Monthly or less 2. How many drinks containing alcohol do you have on a typical day when you are drinking?: 1 or 2 3. How often do you have six or more drinks on one occasion?: Never Total Score: 1 JACQUES-7 AMB Questionnaire JACQUES-7 Date JACQUES - 7 assessed: 04/12/24 Feeling nervous, anxious, or on edge: 0 = Not at all Not being able to stop or control worryin = Not at all Worrying too much about different things: 0 = Not at all Trouble relaxin = Not at all Being so restless that it is hard to sit still: 0 = Not at all Becoming easily annoyed or irritable: 0 = Not at all Feeling afraid as if something awful might happen: 0 = Not at all Total JACQUES-7 score (0-4 normal; 5-9 mild; 10-14 moderate; 15-21 severe): 0 Source: Developed by Drs. Cachorro Grant, Darby Farmer, Alonso Young and colleagues, with an educational roro from [employer]. Review of Systems Const Denies headache(s) Eyes Denies loss of vision ENT Denies vertigo, Denies dizziness, Denies headache(s) and Denies sore throat Card Denies chest pain, Denies leg edema and Denies lightheadedness Resp Denies cough, Denies hemoptysis and Denies wheezing GI Denies abdominal pain, Denies melena, Denies constipation, Denies diarrhea and Denies vomiting Denies dysuria, Denies urinary frequency and Denies urinary urgency Musc Denies arthralgias, Denies joint swelling, Denies numbness and Denies tingling Neuro Denies Abnormal speech present, Denies behavioral changes, Denies vertigo, Denies dizziness, Denies headache(s), Denies loss of vision, Denies memory loss, Denies numbness and Denies tingling Psych Denies anxiety, Denies behavioral changes, Denies depression, Denies memory loss and Denies panic attacks Jose Luis/Lymph Denies easy bleeding and Denies easy bruising Aller/Immun Denies wheezing Physical exam (Primary Care) Vital Signs: Last Vital Signs Temp 97.1 F 11/08/24 09:33 Pulse 67 11/08/24 09:33 Resp 16 11/08/24 09:33 BP 128/78 11/08/24 09:33 Pulse Ox 97 11/08/24 09:33 Oxygen Delivery Method Room Air 11/08/24 09:33 BMI result Body Mass Index 30.3 Tobacco/Smoking Status: Tobacco use Status Tobacco use date assessed 11/08/24 11/08/24 09:37 Patient Tobacco Use Status Never used Tobacco 11/08/24 09:37 Tobacco use type Cigarette 11/08/24 09:37 e-Cigarette/Vaping Use Never Used 11/08/24 09:37 PHQ-9: PHQ-9 Score PHQ-9: Total score 6 11/08/24 09:44 Depression Screening Interpretation: Negative Thrive Assessment: Date of Thrive Assessment Date Thrive assessed 11/08/24 11/08/24 09:37 Currently or been in a relationship where the following occur: No concerns repo rted Const General: healthy appearing, no acute distress, alert and awake Nutritional Appearance: well nourished Orientation/consciousness: oriented to person, oriented to place and oriented to time HENMT Ears: TM's normal bilaterally General nose exam: Normal nasal mucous membranes and turbinates present Eyes Conjunctivae: conjunctivae normal Sclerae: sclerae normal Pupils: Equal, round and reactive pupils present Neck Neck: Yes no lymphadenopathy and Yes no JVD Thyroid: Thyroid normal Carotids: no bruits Resp Effort & Inspection: normal respiratory effort and not tachypneic Auscultation: no crackles, no rales, no rhonchi and no wheezes Cardio Rate: regular rate Rhythm: regular rhythm Heart sounds: no murmurs and normal S1 and S2 GI Palpation (GI): Soft to palpation, nontender, no hepatomegaly and no sple nomegaly Auscultation: normal bowel sounds Skin General skin exam: no rashes or lesions noted and dry skin Neuro General: oriented to person, oriented to place and oriented to time Cranial nerves: Yes Equal, round and reactive pupils present Speech: No Abnormal speech present Gait exam (Neuro): Normal gait present Motor exam (neuro): no tremor noted Extrem Other: DECREASED RANGE OF MOTION OF THE LEFT SHOULDER, DECREASED 3/5 HOSPITAL UNIT CLERK STRENGTH TO THE LEFT HAND COMPARED TO 5/5 ON RIGHT HAND NOTABLE RESTING TREMOR IN THE LEFT HAND Right upper extremity: full ROM Left upper extremity: ROM limited Right lower extremity: full ROM; no edema Left lower extremity: full ROM; no edema Psych Mental Status: mental status grossly normal Speech and movement: Normal speech and movement present Affect: normal affect Attitude: cooperative Thought process: Normal thought process present Coding Level of Care Code Est Pt Level 4 (66406) Diagnoses Sleepiness R40.0 Muscle left arm weakness M62.81 Tremors of nervous system R25.1 Assessment & Plan Assessment & Plan (1) Sleepiness: Code(s): R40.0 - Somnolence Category: Medical Plan: The patient reports significant daytime sleepiness and fatigue, with a sleep study indicating a slightly elevated AHI in the supine position. Further evaluation with an in-lab sleep study was suggested to confirm the diagnosis. (2) Muscle left arm weakness: Code(s): M62.81 - Muscle weakness (generalized) Category: Medical Plan: There is a consideration of CRPS due to persistent pain and stiffness in the arm, although not confirmed. Referral to pain management for further evaluation and management was suggested though like to hold off on referral until cervical spine imaging has been done. (3) Tremors of nervous system: Code(s): R25.1 - Tremor, unspecified Category: Medical Plan: The patient has been experiencing tremors for two years, initially suspected to be Parkinson's disease but later identified as essential tremor. Propranolol was prescribed, providing temporary relief, but symptoms persist. Consideration for alternative medications such as Primidone was discussed. Orders: Orders Vitamin B1 Today G25.2 - Other specified forms of tremor Vitamin D 25-OH Total Today G25.2 - Other specified forms of tremor Lyme IgG/IgM w/reflex to WB Today M62.81 - Muscle weakness (generalized) Tick-borne Disease Molecular Today M62.81 - Muscle weakness (generalized) GRECIA Reflex Titer and Pattern Today M62.81 - Muscle weakness (generalized) MR cervical spine wo con Today M54.12 - Radiculopathy, cervical region, M62.81 - Muscle weakness (generalized), R68.89 - Other general symptoms and signs TSH reflex Free T4 Today R68.89 - Other general symptoms and signs Vitamin B6 Today G25.2 - Other specified forms of tremor PT Evaluation and Treatment Today M62.81 - Muscle weakness (generalized) Referrals Sleep Medicine Referral R40.0 - Somnolence
--- OUTSIDE RECORDS SUMMARY | 2024-11-08 10:01 | XMS_ITS | Clinical Summary ---
Author Organization [facility] Address [address] [place] [address] Care Team Providers Care Bisque Kiln Drawer Name Role Phone Daljit Ferro Primary Care Provider + Allergies Active Allergy Reactions Criticality Noted Date Comments Oxycodone-Acetaminophen GI Intolerance/Nausea/Vomiting Low 01/24/2020 Medications thiamine (VITAMIN B-1) 100 mg tabletIndication s:Thiamine deficiency Take 1 tablet (100 mg total) by mouth daily. 90 tablet 3 12/10/2023 Active cyanocobalamin (VITAMIN B-12) 1000 MCG tabletIndication s:B12 deficiency Take 1 tablet (1,000 mcg total) by mouth daily. 90 tablet 3 12/10/2023 Active propranolol (INDERAL) 20 MG tabletIndication s:Mixed action and resting tremor Take 1 tablet (20 mg total) by mouth 2 (two) times a day. 60 tablet 3 10/06/2024 Active Active Problems Problem Noted Date Diagnosed Date Metatarsalgia 09/20/2024 Thiamine deficiency 04/11/2024 B12 deficiency 04/11/2024 Vitamin D deficiency 09/14/2023 Restless leg syndrome 09/14/2023 Mixed action and resting tremor 09/14/2023 Resolved Problems Problem Noted Date Diagnosed Date Resolved Date Primary parkinsonism 09/14/2023 025 Encounters Date Type Department Care Team Description 10/06/2024 Orders Only [facility] [address] [phone] Vic Zee MD Mixed action and resting tremor (Primary Dx) 10/05/2024 Telephone [facility] [address] [place] [address] [phone] Janes Purvis APRN Medical Complaint 09/20/2024 8:10 AM EDT Office Visit [facility] [address] [phone] Janes Purvis APRN Mixed action and resting [...] Description 03/01/2025 9:30 AM EST Office Visit [facility] [address] [place] [phone] Janes Purvis APRN [address] [place] [phone] Health Maintenance Due Date Last Done Comments [...] patient's age to complete this topic Insurance [facility] MEDICARE MEDICARE PART A & B Care Teams Bisque Kiln Drawer Relationship Specialty Start Date End Date Daljit Ferro PA [facility] [place] [address] PCP - General Adult Health - PA/APNP/CLASS B DRIVER/RETAIL INTERIOR DESIGNER 09/20/24
--- OUTSIDE RECORDS SUMMARY | 2024-11-08 10:02 | XMS_ITS | Encounter Summary ---
Author Organization [facility] Address [address] [place] [address] Phone Care Team Providers Care Flat Sorting Machine Clerk Name Role Phone Lisandro Stewart MD Primary Care Provider Encounter Details Date Type Department Care Team (Late st Contact Info) Description 01/24/2020 Procedure Pass [facility], Ct Scan - [address] [address] Social History Tobacco Use Types Packs/Day Years Used Date Smoking Tobacco: Never Assessed Sex and Gender Information Value Date Recorded Sex Assigned at Not on file Legal Sex Male 10:35 AM EST Gender Identity Not on file Sexual Orientation Not on file documented as of this encounter Plan of Treatment Not on file documented as of this encounter Visit Diagnoses Not on filedocumented in this encounter Care Teams Flat Sorting Machine Clerk Relationship Specialty Start Date End Date Lisandro Stewart MD [address] [place] [address] [place] [address] PCP - General Internal Medicine 01/24/20 documented as of this encounter Additional Source Comments The information contained in this document represents components of the legal health record. It is not the complete legal health record.[facility]
--- OUTSIDE RECORDS SUMMARY | 2024-11-08 10:02 | XMS_ITS ---
[facility] Name [facility] Results Test Name/Text Value Interpretation Date Range Source Folate SerPl-mCnc 23.3 ng/mL Normal 04/22/2024 [facility] Methylmalonate SerPl-sCnc 137.0 nmol/L Normal 04/22/2024 69 - 390 [facility] Homocysteine SerPl-sCnc 11.4 umol/L Above high normal 2024 - 11.4 [facility] Vit B1 Bld-sCnc 192.0 nmol/L Above high normal 04/22/2024 78 - 185 [facility] Vit B12 SerPl-mCnc 589.0 pg/mL Normal 04/22/2024 200 - 11 00 [facility] History of Medication Use Medication Directions Dispensed Refills Start Date End Date Stat us propranolol (INDERAL LA) 60 MG 24 hr capsule Take 1 capsule (60 mg total) by mouth daily. 09/20/2024 active propranolol (INDERAL) 10 MG tablet Take 1 tablet twice daily for a week, then increase to 2 tabs (20mg) twice daily. 06/28/2024 active ibuprofen (MOTRIN) 600 MG tablet Take 1 tablet (600 mg total) by mouth 4 times daily (every 6 hours) as needed. for pain 04/20/2024 active primidone (MYSOLINE) 50 MG tablet Take 1 tablet (50 mg total) by mouth nightly. 01/21/2024 active celeCOXIB (CeleBREX) 200 MG capsule Take 1 capsule (200 mg total) by mouth 2 times a day. 07/14/2023 active carbidopa-levodopa (SINEMET) 25-100 MG per tablet Take 1 tablet by mouth 3 (three) times a day. 07/01/2023 active atorvastatin (LIPITOR) 40 MG tablet Take 1 tablet (40 mg total) by mouth daily. active brimonidine (ALPHAGAN) 0.15 % ophthalmic solution 1 drop 3 (three) times a day. active Allergies Allergen Reaction Severity Comment Documented Date Source Statu s OXYCODONE-ACETAMINO PHEN GI INTOLERANCE/NAUSEA/ VOMITING 01/24/2020 [facility] active Problems Problem Status Onset Date Problem Type Date of Resoluti on Source B12 deficiency active 2024-04-11 ProblemAct [facility] Thiamine deficiency active 2024-04-11 ProblemAct [facility] Mixed action and resting tremor active 2023-09-14 ProblemAct [facility] Restless leg syndrome active 2023-09-14 ProblemAct [facility] Vitamin D deficiency active 2023-09-14 ProblemAct [facility] Metatarsalgia active 2024-09-20 ProblemAct [facility] T Encounters Encounter Type Encounter Reason Primary Diagnosis Location Date Ambulatory Tremors Tremors [facility] 09/20/2024 Ambulatory [facility] 06/28/2024 Ambulatory [facility] 05/16/2024 Ambulatory Tremors Tremors [facility] 04/11/2024 Ambulatory Parkinsonism, unspecified Parkinsonism, unspecified [facility] 10/19/2023 Ambulatory [facility] 09/14/2023 Ambulatory Unspecified abnormal involuntary movements Unspecified abnormal involuntary movements [facility] 09/14/2023 Care Team Organization Name Specialty Phone Email Start Date End Da te Aceris [facility] MAURA LOPEZ Primary Care 09/20/2024 A[facility] Ins[facility] Provider Primary Care 09/14/2023 10/19/2024 Aceris [facility] Inspection EXTERNAL PROVIDER Primary Care 09/14/202308/21 Aceris [facility] Ins[facility] 04/11/2023
--- OUTSIDE RECORDS SUMMARY | 2024-11-08 10:02 | XMS_ITS | Patient Health Record ---
[facility] Address [address] [place] [address] Care Team Providers Care Morgue Technician Name Role Phone Terry MONTES, Lisandro Primary Care Provider David Carrillo Unavailable [phone] Reason For Referral No Information Problems Problem Type SNOMED Code ICD Code Onset Dates Problem Status W/U Status Risk Notes Problem Metatarsalgia (56543607) Metatarsalgia (726.70) Active confirmed Plan Of Treatment Pending Test Test Name Order Date X ray : Foot, right 3V 02/09/2011 Insurance Providers Payer Name Payer Address Payer Phone Subscriber Number Group Number Insured Name Patient Relationship to Insured Coverage Start Date Coverage End Date [facility] Blue Card [address] [place] [address] [phone] [id number] Rehan Trinh Self - patient is the insured
--- OUTSIDE RECORDS SUMMARY | 2024-11-08 10:02 | XMS_ITS | Patient Health Record ---
Author Organization [facility] Address [address] [place] [address] Care Team Providers Care Pot Room Supervisor Name Role Phone Terry MONTES, Lisandro Primary Care Provider Floyd Washington Jr Unavailable Allergies Allergen (clinical drug ingredient) Drug/Non Drug [...] Problem Status W/U Status Risk Notes Problem [id number] Colon cancer screening (Z12.11) Active confirmed Problem [id number] Encounter for other preprocedural examination (Z01.818) Active confirmed Plan Of Treatment Future Test Test Name Order Date COLONOSCOPY 08/06/2016 Insurance Providers Payer Name Payer Address Payer Phone Subscriber Number Group Number Insured Name Patient Relationship to Insured Coverage Start Date Coverage End Date [facility] [address] [facility] [place], [place] [phone] [id number] CARMELLA CRUZ Self - patient is the insured Medical (General) History Medical History History ICD Code nephrolithiasis Surgical History Surgery Date(Month/Year) hernia repair 06/2013 left knee arthroscopy cystoscopy
== END 2024-11-08 10:15 | disposition home or self-care (01) ==
LOC: HO.HMCH 09:20
PROVIDERS: PCP Physician Assistant; Visit Provider Physician Assistant
DX: R40.0 Somnolence (principal); M62.81 Muscle weakness (generalized); R25.1 Tremor, unspecified

== ENCOUNTER → 2024-11-08 09:20 | Outpatient (BNVA) | payer MEDICARE, SELFPAY | PROVIDERS: PCP Physician Assistant; Visit Provider Physician Assistant | DX: R40.0 Somnolence (principal); R25.1 Tremor, unspecified; M62.81 Muscle weakness (generalized) | CPT/HCPCS: 99212 ==

== ENCOUNTER 2024-11-10 11:20 | Outpatient (AMB) | payer MEDICARE, SELFPAY ==
--- OUTSIDE RECORDS SUMMARY | 2024-11-10 11:24 | XMS_ITS | Clinical Summary ---
Author Organization [facility] Address [address] [place] [address] Care Team Providers Care Vibratory Pile Driver Name Role Phone Daljit Ferro Primary Care [...] Department Care Team Description 10/06/2024 Orders Only [facility] Neurology [address] [phone] Vic Zee MD Mixed action and resting tremor (Primary Dx) 10/05/2024 Telephone [facility] Neurology [address] [place] [address] [phone] Janes Purvis APRN Medical Complaint 09/20/2024 8:10 AM EDT Office Visit [facility] Neurology [address] [phone] Janes Purvis APRN Mixed action and resting [...] Description 03/01/2025 9:30 AM EST Office Visit [facility] Neurology [address] [place] [phone] Janes uPrvis APRN [address] [place] [phone] Health Maintenance Due Date Last Done Comments [...] patient's age to complete this topic Insurance [facility] MEDICARE MEDICARE PART A & B Care Teams Vibratory Pile Driver Relationship Specialty Start Date End Date Daljit Ferro PA [facility] [place] [address] PCP - General Adult Health - PA/APNP/PAYROLL REPRESENTATIVE/GROUNDS CREW SUPERVISOR 09/20/24
--- OUTSIDE RECORDS SUMMARY | 2024-11-10 11:25 | XMS_ITS | Patient Health Record ---
[facility] Address [address] [facility] [place] [address] Care Team Providers Care Help Desk Supervisor Name Role Phone Terry MONTES, Lisandro Primary Care Provider David Carrillo Unavailable [phone] Reason For Referral No Information Problems Problem Type SNOMED Code ICD Code Onset Dates Problem Status W/U Status Risk Notes Problem Metatarsalgia (08692643) Metatarsalgia (726.70) Active confirmed Plan Of Treatment Pending Test Test Name Order Date X ray : Foot, right 3V 02/09/2011 Insurance Providers Payer Name Payer Address Payer Phone Subscriber Number Group Number Insured Name Patient Relationship to Insured Coverage Start Date Coverage End Date [facility] Blue Card [address] [place] [address] [phone] [id number] 301 Rehan Trinh Self - patient is the insured
--- OUTSIDE RECORDS SUMMARY | 2024-11-10 11:25 | XMS_ITS | Patient Health Record ---
Author Organization [facility] Address [address] [place] [address] Care Team Providers Care System Development Manager Name Role Phone Terry MONTES, Lisandro Primary [...] Problem Status W/U Status Risk Notes Problem [id number] Colon cancer screening (Z12.11) Active confirmed Problem 93979394 Encounter for other preprocedural examination (Z01.818) Active confirmed Plan Of Treatment Future Test Test Name Order Date COLONOSCOPY 08/06/2016 Insurance Providers Payer Name Payer Address Payer Phone Subscriber Number Group Number Insured Name Patient Relationship to Insured Coverage Start Date Coverage End Date [facility] [address] [facility] [place], [place] [phone] [id number] CARMELLA CRUZ Self - patient is the insured Medical (General) History Medical History History ICD Code nephrolithiasis Surgical History Surgery Date(Month/Year) hernia repair 06/2013 left knee arthroscopy cystoscopy
--- OUTSIDE RECORDS SUMMARY | 2024-11-10 11:25 | XMS_ITS | Encounter Summary ---
Author Organization [facility] Address [address] [place] [address] Phone Care Team Providers Care Steel Cutter Name Role Phone Lisandro Stewart MD Primary Care Provider [phone] Encounter Details Date Type Department Care Team (Late st Contact Info) Description 01/24/2020 Procedure Pass [facility], Ct Scan - [address] [address] Social History Tobacco Use Types Packs/Day Years [...] on filedocumented in this encounter Care Teams Steel Cutter Relationship Specialty Start Date End Date Lisandro Stewart MD [address] [place] [address] [place] [address] PCP - General Internal Medicine 01/24/20 documented as of this encounter Additional Source Comments The information contained in this document represents components of the legal health record. It is not the complete legal health record.[facility]
--- NOTE | 2024-11-10 11:46 | A.OFFVIS_ITS ---
Vital Signs 11/10/24 11:47 Height 5 ft 10 in Weight 211 lb BMI 30.3 BP 126/86 Blood Pressure Location Lt brachial Position Sitting Pulse 76 Pulse Source Pulse Oximeter Pulse Oximetry (%) 99 Oxygen Delivery Method Room Air Intake Visit Reasons: INP - Somnolence (transfer care from [facility]) Intake Note: Patient presents PALLET RECTIFIER Somnolence HST in chart(AHI-4.6, BRENDA- 85%). Reports significant daytime sleepiness and fatigue, which have been ongoing for nearly a year. A sleep study indicated a slightly elevated AHI in the supine position, suggesting possible obstructive sleep apnea, although a definitive diagnosis was not made. He experiences episodes of sudden sleep onset and snoring, which have not been resolved despite previous evaluations. Primidine 50mg tablet for first time last night woke with migraine. Accompanied by: Self / Same As Patient Allergies moxifloxacin (From Avelox) Allergy (Mild, Verified 11/10/24 11:50) Hives acetaminophen (Percocet) Adverse Reaction (Unknown, Verified 11/10/24 11:50) vomiting oxycodone (Percocet) Adverse Reaction (Unknown, Verified 11/10/24 11:50) vomiting HPI Comments Details: 69 yo male new patient with dx of Parkinsons presents for evaluation of sleep difficulties. He was tried on Carbiodpa/Levodopa 25mg / 100mg Sinemet, and was unresponsive per patient In [facility] he had a skin biopsy x 4 and it was 98% false for, Parkinson, he also had blood markers to r/o Parkinsons. DATscan is declined today, CTscan is declined today. He sees Dr. Rashi Zee, [facility]. His sleep has worsened two year ago, he goes to bed at 10pm and wakes up at 2am. He goes downstairs and has OJ then one hour later will fall asleep. He snores loudly, gasps for air and his notices and will nudge him. He feels chronically fatigued unable to work like he used to in the past. RLS He has tremors at rest and was diagnosed with essential tremors He has a l.arm tremor and l. leg tremor, worse at rest and can be worse with action also. He has difficulty with fine motor functions, can not cut his food, can not turn screw bull driver, denies weakness of the hands, says the l. hand coordination is slower. L. sided feet slower. He has decreased blink of face. His vision is like a kaliediscope, he sees black and white flashing lights, denies blurriness. Eyes, cataract surgery recent. Denies dysphagia, can swallow solids and liquids with ease, he denies drooling. Denies constipation BM x 1 daily in the AM. Denies being off balance and falls, does not use a cane to ambulate. He has anxiety and depression and he is afraid of falls, fear is especially falling off of ladders. Apr 17 2024 he had a nasal biopsy, which resulted in Squamous cell carcinoma, surgical procedure Dr. Cat [facility], September 2024 followed up and will f/u in Apr 2025. Denies difficulty turning over in bed. 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 Cognitive needs: No Hearing needs: No Vision needs: Yes (Glasses) Physical Exam Vital Signs: Last Vital Signs Pulse 76 11/10/24 11:47 BP 126/86 11/10/24 11:47 Pulse Ox 99 11/10/24 11:47 Oxygen Delivery Method Room Air 11/10/24 11:47 BMI result Body Mass Index 30.3 Eyes Pupils: Equal, round and reactive pupils present Neuro Other: blank face and decreased blink, mild stooping, decreased hand swing, Upper extremity tremors noted. Gait is good, stride are normal. voice is loud able to project. General: tone normal and moves all extremities Cranial nerves: Yes Facial sensation intact/muscles of mastication intact, Yes Intact sense of smell present, Yes Equal, round and reactive pupils present, Yes Normal accommodation reflex present, Yes Normal facial strength present, Yes Midline tongue present, Yes Symmetric palate elevation present, Yes Ability to bilaterally rotate head present and Yes Ability to bilaterally elevate shoulders present Cognition (Neuro): normal cognition Gait exam (Neuro): Normal gait present Motor exam (neuro): 5/5 motor strength present throughout, Pronator motor function not present and Normal motor muscle tone present throughout Deep tendon reflexes (DTR's): Right triceps reflex intensity grade: 1+, Left triceps reflex intensity grade: 1+, Rt Biceps (C5, C6): 1+, Left biceps reflex intensity grade: 1+, Right brachioradialis reflex intensity grade: 1+, Left brachioradialis reflex intensity grade: 1+, Right patellar reflex intensity grade: 1+ and Left patellar reflex intensity grade: 1+ Coordination: [id number] test normal Psych Appearance: grossly normal Mental Status: mental status grossly normal Speech and movement: Slowed movement present (Neuro) Affect: normal affect Attitude: cooperative Thought process: Normal thought process present Results Reviewed Results Reviewed: requestd labs from [facility] Assessment & Plan Assessment & Plan (1) Excessive daytime sleepiness: Code(s): G47.19 - Other hypersomnia Category: Medical Plan PSG in lab for excessive daytime sleepiness. Labs to r/o deficiencies. Parkinson like disorder will monitor, pt. declines DATScan? CD/LD non responsive. F/u in [address] Vaca Orders: Orders RT PSG in-lab sleep study 11/10/24 G47.19 - Other hypersomnia Patient Instructions: Sleep Hygiene provided: set a scheduled bedtime and wake time to help regulate the circadian rhythm and balance the release of pituitary hormones. Sleep in a dark room, temperatures below 68 degrees, and no devices n bed. Limit caffeinated products 6 hours prior to bed, and limit fluids 2-4 hours prior to bed. Gentle night yoga, diffusing essential oils, and playing soft music can be relaxing. Coding Level of Care Code New Pt Level 4 (30399) Diagnoses Excessive daytime sleepiness G47.19 Sleep Questionnaire Difficulty falling asleep: No Difficulty staying asleep?: Yes Number of arousals: 1 Snoring: Yes Witnessed apneas: Yes Gasping arousals: Yes Nocturia: No GERD: No Vivid dreams: No Acting out dreams: No Abnormal behavior in sleep: Yes Abnormal movements in sleep: Yes Morning headaches: No Excessive daytime sleepiness: Yes Daytime naps: Yes Restless legs: Yes Hallucinations: No Sleep paralysis: No Drop attacks: No Sleep Study: Yes CPAP: No
[2024-11-10 11:47] VITALS: BP 126/86; PULSE 76; O2SAT 99; BMI 30.3
== END 2024-11-10 12:55 | disposition home or self-care (01) ==
LOC: HO.HSMS 11:21
PROVIDERS: PCP Physician Assistant; Visit Provider Physician Assistant Medical
DX: G47.19 Other hypersomnia (principal)
CPT/HCPCS: 99204

== ENCOUNTER → 2024-11-10 11:20 | Outpatient (BNVA) | payer MEDICARE, SELFPAY | PROVIDERS: PCP Physician Assistant; Visit Provider Physician Assistant Medical | DX: G47.19 Other hypersomnia (principal) | CPT/HCPCS: 99202 ==

== ENCOUNTER → 2024-11-19 14:47 | Outpatient (BNV) | payer MEDICARE, SELFPAY | PROVIDERS: PCP Physician Assistant; Visit Provider Radiology Diagnostic Radiology | DX: M47.812 Spondylosis without myelopathy or radiculopathy, cervical region (principal) | CPT/HCPCS: 72141 ==

== ENCOUNTER 2024-11-19 14:48 | Outpatient (REF) | payer MEDICARE, SELFPAY ==
--- NOTE | ~2024-11-19 | MR_ITS ---
EXAMINATION: MR CERVICAL SPINE WITHOUT CONTRAST CLINICAL INFORMATION: Muscle weakness. COMPARISON: April 26, 2017 reported broad-based disc extrusion C6-7 and spondylosis C3-4. TECHNIQUE: MRI of the cervical spine was obtained using routine sequences without contrast. FINDINGS: Craniocervical junction is intact. Normal position of the cerebellar tonsils. Cisterna magna. No bone marrow STIR signal abnormality. Marginal osteophyte formation at C4-5, C5-6 and C6-7 levels. Grade 1 retrolisthesis C6-7. Modic type II endplate changes at C6-7. Cervical spinal cord caliber and signal is normal. C2-3: No disc herniation. No neuroforamina stenosis. C3-4: Broad-based disc osteophyte consummation. No cord compression. Left neuroforamina narrowing. C4-5: No disc herniation. Left neuroforamina narrowing. C5-6: No disc herniation. Left neuroforamina narrowing on a degenerative basis. C6-7: Broad-based disc osteophyte compresses formation. No cord compression. No neuroforamina stenosis. C7-T1: No disc herniation. No neuroforamina stenosis. No prevertebral compartment hematoma, mass or fluid collection. Flow-void signal within the main vessels is normal. Right vertebral artery is dominant. MR/MR cervical spine wo con IMPRESSION: Multilevel cervical spondylosis C4 C7 pronounced at C6-7 without cord compression, cord edema and or myelopathy. Left neuroforamina narrowing C3-4 on a degenerative basis. Electronically signed by: Ankush Burks MD 11/20/2024 12:08 PM EDT
--- OUTSIDE RECORDS SUMMARY | 2024-11-19 14:56 | XMS_ITS | Clinical Summary ---
Author Organization [facility] Address [address] [place] [address] Care Team Providers Care Boot And Saddle Repair Person Name Role Phone Daljit Ferro Primary Care [...] Department Care Team Description 10/06/2024 Orders Only [facility] Neurology [address] [phone] Vic Zee MD Mixed action and resting tremor (Primary Dx) 10/05/2024 Telephone [facility] Neurology [address] [place] [address] [phone] Janes Purvis APRN Medical Complaint 09/20/2024 8:10 AM EDT Office Visit [facility] Neurology [address] [phone] Janes Purvis APRN Mixed action and resting [...] Description 03/01/2025 9:30 AM EST Office Visit [facility] Neurology [address] [place] [phone] Janes Purvis APRN [address] [place] [address] Health Maintenance Due Date Last Done Comments Advance Care Planning 1955 Hepatitis C Virus Screening 1955 DTaP/Tdap/Td Vaccines [...] patient's age to complete this topic Insurance [facility] MEDICARE MEDICARE PART A & B Care Teams Boot And Saddle Repair Person Relationship Specialty Start Date End Date Daljit Ferro PA [address] [place] [address] [place] [address] PCP - General Adult Health - PA/APNP/WILDLIFE MANAGER/FRAME COVERER 09/20/24
--- OUTSIDE RECORDS SUMMARY | 2024-11-19 14:57 | XMS_ITS | Encounter Summary ---
Author Organization [facility] Address [address] [place] [address] Phone Care Team Providers Care Chief Port Director Name Role Phone Lisandro Stewart MD Primary Care Provider [phone] Encounter Details Date Type Department Care Team (Late st Contact Info) Description 01/24/2020 Procedure Pass [facility], Ct Scan - [address] [address] Social History Tobacco Use Types Packs/Day Years [...] on filedocumented in this encounter Care Teams Chief Port Director Relationship Specialty Start Date End Date Lisandro Stewart MD [address] [place] [address] [place] [address] PCP - General Internal Medicine 01/24/20 documented as of this encounter Additional Source Comments The information contained in this document represents components of the legal health record. It is not the complete legal health record.[facility]
--- OUTSIDE RECORDS SUMMARY | 2024-11-19 14:57 | XMS_ITS | Clinical Summary ---
Author Organization [facility] Address [address] [place] [address] Phone Care Team Providers Care Outbound Supervisor Name Role Phone Lisandro Stewatr MD Primary Care Provider [phone] Allergies Active Allergy Reactions Criticality Noted Date Comments Oxycodone-Acetaminophen GI Upset 01/24/2020 Medications No known medications Social History Tobacco Use Types Packs/Day Years Used Date Smoking Tobacco: Never Assessed Education Answer Date Recorded Are you interested in more education? Not on arcelia e 07/17/2022 Are you concerned about learning? Not on file 07/17/2022 No 07/17/2022 No 07/17/2022 Digital Access Answer Date Recorded No 08/18/2022 No 08/18/2022 Reliable internet access at home? Not on file 08/18/2022 Device with a working camera? Not on file Sex and Gender Information Value Date Recorded Sex Assigned at Not on file Legal Sex Male 10:35 AM EST Gender Identity Not on file Sexual Orientation Not on file Last Filed Vital Signs Vital Sign Reading Time Taken Comments Blood Pressure 125/90 01/24/2020 1:24 PM EST Pulse 62 01/24/2020 1:24 PM EST Temperature 36.8 C (98.3 F) 01/24/2020 1:24 PM EST Respiratory Rate 18 01/24/2020 1:24 PM EST Oxygen Saturation 99% 01/24/2020 1:24 PM EST Inhaled Oxygen Concentration - - Weight - - Height - - Body Mass Index - - Plan of Treatment Not on file Medical Devices Not on file Insurance [employer]RI[employer]IAN [employer] [place] [id number] [employer] [place] [employer] [place] [employer] [place] [employer] [place] [employer]MINISTRAT[employer] [place] [employer] [place] [employer] Care Teams Outbound Supervisor Relationship Specialty Start Date End Date Lisandro Stewart MD [address] [place] [address] Dr Blackwell CHRISTIAN [place] PCP - General Internal Medicine 01/24/20 Additional Source Comments The information contained in this document represents components of the legal health record. It is not the complete legal health record.[facility]
--- OUTSIDE RECORDS SUMMARY | 2024-11-19 14:57 | XMS_ITS | Patient Health Record ---
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
--- OUTSIDE RECORDS SUMMARY | 2024-11-19 14:57 | XMS_ITS | Patient Health Record ---
Author Organization [facility] Address [address] [place] [address] Care Team Providers Care Design Release Engineer Name Role Phone Terry MONTES, Lisandro Primary Care Provider Unavaila Floyd Couch Jr Unavailable Allergies Allergen (clinical drug ingredient) Drug/Non Drug Allergy documented on EMR Reaction Allergy Type Onset Date Status Information temporarily unavailable Percocet Unknown Drug Allergy Active Reason For [...] Problem Status W/U Status Risk Notes Problem [id number] Colon cancer screening (Z12.11) Active confirmed Problem 47145214 Encounter for other preprocedural examination (Z01.818) Active confirmed Plan Of Treatment Future Test Test Name Order Date COLONOSCOPY 08/06/2016 Insurance Providers Payer Name Payer Address Payer Phone Subscriber Number Group Number Insured Name Patient Relationship to Insured Coverage Start Date Coverage End Date [facility] [address] [facility] [place], [place] [phone] [id number] CARMELLA CRUZ Self - patient is the insured Medical (General) History Medical History History ICD Code nephrolithiasis Surgical History Surgery Date(Month/Year) hernia repair 06/2013 left knee arthroscopy cystoscopy
== END 2024-11-19 14:49 | disposition home or self-care (01) ==
LOC: HO.MRI 14:48
PROVIDERS: PCP Physician Assistant; Visit Provider Physician Assistant
DX: M62.81 Muscle weakness (generalized) (principal); M54.12 Radiculopathy, cervical region; R68.89 Other general symptoms and signs
CPT/HCPCS: 72141

== ENCOUNTER 2024-11-22 06:40 | Outpatient (REF) | payer MEDICARE, SELFPAY ==
--- OUTSIDE RECORDS SUMMARY | 2024-11-22 06:44 | XMS_ITS | Clinical Summary ---
Author Organization [facility] Address [address] [place] [address] Care Team Providers Care Transportation Mechanic Name Role Phone Daljit Ferro Primary Care [...] Department Care Team Description 10/06/2024 Orders Only [facility] Neurology [address] [phone] Vic Zee MD Mixed action and resting tremor (Primary Dx) 10/05/2024 Telephone [facility] Neurology [address] [place] [phone] Janes Purvis APRN Medical Complaint 09/20/2024 8:10 AM EDT Office Visit [facility] [address] [phone] Janes Purvis APRN Mixed action and resting [...] Description 03/01/2025 9:30 AM EST Office Visit [facility] [address] [place] [phone] Janes Purvis APRN [address] [place] [phone] Health Maintenance Due Date Last Done Comments [...] patient's age to complete this topic Insurance [facility] [place] [address] MEDICARE PART A & B Care Teams Transportation Mechanic Relationship Specialty Start Date End Date Daljit Ferro PA [address] [place] [address] [place] [address] PCP - General Adult Health - PA/APNP/MANAGER TALENT/SERVICE CREW LEADER 09/20/24
--- OUTSIDE RECORDS SUMMARY | 2024-11-22 06:45 | XMS_ITS | Patient Health Record ---
Author Organization [facility] Address [address] [place] [address] Care Team Providers Care Manager Employment Name Role Phone Terry MONTES, Lisandro Primary [...] Problem Status W/U Status Risk Notes Problem [id number] Colon cancer screening (Z12.11) Active confirmed Problem 45375756 Encounter for other preprocedural examination (Z01.818) Active confirmed Plan Of Treatment Future Test Test Name Order Date COLONOSCOPY 08/06/2016 Insurance Providers Payer Name Payer Address Payer Phone Subscriber Number Group Number Insured Name Patient Relationship to Insured Coverage Start Date Coverage End Date [facility] [address] [facility] [place] [place] [phone] [id number] CARMELLA CRUZ Self - patient is the insured Medical (General) History Medical History History ICD Code nephrolithiasis Surgical History Surgery Date(Month/Year) hernia repair 06/2013 left knee arthroscopy cystoscopy
--- OUTSIDE RECORDS SUMMARY | 2024-11-22 06:45 | XMS_ITS | Encounter Summary ---
Author Organization [facility] Address [address] [place] [address] Phone Care Team Providers Care Community Resource Officer Name Role Phone Lisandro Stewart MD Primary Care Provider [phone] Encounter Details Date Type Department Care Team (Late st Contact Info) Description 01/24/2020 Procedure Pass [facility], Ct Scan - [address] [address] Social History Tobacco Use Types Packs/Day Years [...] on filedocumented in this encounter Care Teams Community Resource Officer Relationship Specialty Start Date End Date Lisandro Stewart MD [address] [place] [address] [place] [address] PCP - General Internal Medicine 01/24/20 documented as of this encounter Additional Source Comments The information contained in this document represents components of the legal health record. It is not the complete legal health record.[facility]
--- OUTSIDE RECORDS SUMMARY | 2024-11-22 06:45 | XMS_ITS | Patient Health Record ---
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
--- OUTSIDE RECORDS SUMMARY | 2024-11-22 06:45 | XMS_ITS | Clinical Summary ---
Author Organization [facility] Address [address] [place] [address] Phone Care Team Providers Care Utility Gelatin Maker Name Role Phone Lisandro Stewart MD Primary Care Provider [phone] Allergies Active Allergy Reactions Criticality Noted Date [...] Devices Not on file Insurance CHRISTIAN Lehman [employer] [place] [id number] [employer]RAT[employer] CHRISTIAN Lehman [employer] AD[employer]AT[employer] [place] [employer]MIN[employer] Member Subscriber Plan / Payer (Ef fective 2019-Present) Name:Rehan Trinh Relation to Subscriber:Spouse Name:GAYATHRITAOBELLA Date of :1955 (Home) Address: [place] Payer ID:[id number] (NAIC) Type:PPO Address: [address] [address] [place] [employer]EF[employer] ADMINISTRATORS [employer] ADMINISTRATORS [place] [employer] ADMINISTRATORS [place] [employer] BENEFITS ADMINISTRATORS [place] [employer] ADMINISTRATORS Care Teams Utility Gelatin Maker Relationship Specialty Start Date End Date Lisandro Stewart MD [address] [place] [address] Dr Blackwell CHRISTIAN Sheridan PCP - General Internal Medicine 01/24/20 Additional Source Comments The information contained in this document represents components of the legal health record. It is not the complete legal health record.[facility]
[2024-11-22 07:44] LABS: Hematocrit 48.3 % (42.0-52.0); Hemoglobin 16.4 g/dl (14.0-18.0); Mean Corpuscular HGB Conc 34.0 g/dl (31.0-36.0); Mean Corpuscular Hemoglobin 29.1 pg (27.0-33.0); Mean Corpuscular Volume 85.8 fL (80.0-98.0); NRBC Abs Auto 0.000 X10*3/uL (0.0-0.012); NRBC Pct Auto 0.0 /100WBC (0.0-0.2); Platelet Count 214 X10*3/uL (160-400); Red Blood Count 5.63 X10*6/uL (4.60-5.80); White Blood Count 9.3 X10*3/uL (4.8-10.8)
[2024-11-22 08:19] LABS: Alanine Aminotransferase 38 U/L (0-40); Albumin Level 4.3 g/dL (3.5-5.0); Alkaline Phosphatase 47 U/L (39-117); Anion Gap 12 (12-20); Aspartate Amino Transferase 37 U/L (5-37); Blood Urea Nitrogen 19 mg/dL (9-16); Calcium 9.2 mg/dL (8.4-10.2); Carbon Dioxide 27 mmol/L (22-29); Chloride 105 mmol/L (96-108); Cholesterol 259 mg/dL (<200); Estimated Glomerular Filt Rate > 60; HDL Cholesterol 45 mg/dL (>40); Potassium 4.3 mmol/L (3.3-5.1); Sodium 140 mmol/L (135-145); Total Protein 7.6 g/dL (6.5-8.0); Triglycerides 180 mg/dL (<150)
[2024-11-23 19:12] LABS: Lyme Abs Screen <0.90 index
[2024-11-24 13:24] LABS: A. Phagocytphilium DNA,RT-PCR NOT DETECTED (NOT DETECTED); Babesia Microti DNA, RT-PCR NOT DETECTED (NOT DETECTED); Borrelia Miyamotoi,DNA RT-PCR NOT DETECTED (NOT DETECTED); E.Chaffeensis DNA RT-PCR NOT DETECTED (NOT DETECTED); Lyme(Borrelia ssp)DNA RT-PCR NOT DETECTED (NOT DETECTED)
[2024-11-24 15:24] LABS: Anti Nuclear Antibody Screen NEGATIVE (NEGATIVE)
== END 2024-11-22 06:41 | disposition home or self-care (01) ==
LOC: HO.LAB 06:40
PROVIDERS: PCP Physician Assistant; Visit Provider Physician Assistant
DX: G25.2 Other specified forms of tremor (principal); M62.81 Muscle weakness (generalized); E78.5 Hyperlipidemia, unspecified; R68.89 Other general symptoms and signs; Z12.5 Encounter for screening for malignant neoplasm of prostate
CPT/HCPCS: 36415; 80053; 80061; 82306; 84153; 84207; 84425; 84443; 85027; 86038; 86617; 86618; 87468; 87469; 87478; 87484; 87798

== ENCOUNTER → 2024-12-18 20:30 | Outpatient (REF) | payer MEDICARE, SELFPAY ==
--- OUTSIDE RECORDS SUMMARY | 2024-12-13 16:30 | XMS_ITS | Encounter Summary ---
Author Organization [facility] Address [address] [place] [address] Care Team Providers Care Dial Maker Name Role Phone Daljit Ferro Primary Care Provider + Reason for Visit * Reason Comments mixed action and resting tremor Encounter Details Date Type Department Care Team (Late st Contact Info) Description 12/13/2024 4:30 PM EDT Office Visit [facility] Neurology [address] [place] [phone] Janes Purvis, COMPANY ACCOUNTANT [address] [facility] [address] [place] [address] Mixed action and resting tremor (Primary Dx) Social History Tobacco Use Types Packs/Day Years Used Date Smoking Tobacco: Never Smokeless Tobacco: Never Alcohol Use Standard Drinks/Week Comments Not Currently 0 (1 standard drink = 0.6 oz pur e alcohol) PHQ-2 Answer Date Recorded PHQ-2 Total Score 2 12/13/2024 Sex and Gender Information Value Date Recorded Sex Assigned at Male 03/30/2023 3:15 PM EST Legal Sex Male 7:41 AM EST Gender Identity Male 03/30/2023 3:15 PM EST Sexual Orientation Heterosexual (straight) 12/12 3:46 PM EDT documented as of this encounter Last Filed Vital Signs Vital Sign Reading Time Taken Comments Blood Pressure 152/96 12/13/2024 4:18 PM EDT Pulse 75 12/13/2024 4:18 PM EDT Temperature - - Respiratory Rate - - Oxygen Saturation - - Inhaled Oxygen Concentration - - Weight 97.5 kg (215 lb) 12/13/2024 4:15 PM EDT Height 177.8 cm (5' 10 ) 12/13/2024 4:15 PM EDT Body Mass Index 30.85 12/13/2024 4:15 PM EDT documented in this encounter Functional Status * Over the past 2 weeks, how often have you been bothered by any of the following problems? Question Answer Date of Assessment Author Patient Health Questionnaire -2 Score 2 12/13/2024 4:00 PM EDT Paz Ortiz MA * Question Answer Date of Assessment Author Patient Health Questionnaire -9 Score 12 12/13/2024 4:00 PM Paz Castelan MA * Question Answer Date of Assessment Author Little interest or pleasure in doing things Several days 12/13/2024 4:00 PM Jose J Castelan MA Feeling down, depressed, or hopeless Several days 12/13/2024 4:00 PM Paz Castelan MA Trouble falling or staying asleep, or sleeping too much Nearly every day 12/13/2024 4:00 PM Paz Castelan MA Feeling tired or having little energy Nearly every day 12/13/2024 4:00 PM Paz Castelan [place] Poor appetite or overeating Not at all 12/13/2024 4:00 PM Paz Castelan MA Feeling bad about yourself - or that you are a failure or have let yourself or your family down Several days 12/13/2024 4:00 PM Paz Castelan MA Trouble concentrating on things, such as reading the newspaper or watching television Not at all 12/13/2024 4:00 PM Paz Castelan MA Moving or speaking so slowly that other people could have noticed? Or the opposite - being so fidgety or restless that you have been moving around a lot more than usual. Nearly every day 12/13/2024 4:00 PM Paz Castelan MA Thoughts that you would be better off or hurting yourself in some way Not at all 12/13/2024 4:00 PM EDT Hiwot Ortiz MA documented as of this encounter Patient Instructions * Patient Instructions* Janes Purvis APRN - 12/13/2024 5:16 PM EDT We would like to see you for a follow up appointment. Please don't hesitate to contact us with any questions or concerns beforehand. documented in this encounter Progress Notes * Janes Purvis APRN - 12/13/2024 4:30 PM EDT [facility] [address] [facility] [place], [address] Name: Rehna Trinh Date of : 1955 Age: 69 y.o. CC: tremor F/U History of Present Illness Rehan Trinh is a 69 y.o. 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 CND skin biopsy testing for alpha-synucleinopathies was negative in October 2023. As per initial evaluation (09/14/23): He is followed by orthopedic surgeon Dr. Jose Sheets ([facility]). He has been evaluated by [facility] neurologist Dr. Cam Colón, who diagnosed him with parkinson's disease in March 2023 and started him on levodopa in early April 2023. He immigrated from [place] in 1988. 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 Pertinent Non-Motor ROS: (+) for fatigue, insomnia (-) for reduced sense of smell or taste, drooling, lightheadedness, dizziness, syncope, GI complaints, urologic complaints, issue with memory, hallucinations, delusions, symptoms concerning for RBD, anxiety, depression Family History: (-) for tremors, parkinson's disease, other neurologic movement disorders, dementia Last Visit: Rehan Trinh was last seen 09/20/2024 at which time 1.) increase propranolol to LA 60mg every day. Contact office 2 weeks after being on propranolol LA60mg every day . Labs/Imaging: --EMG/NCS (04/15/23): Evaluation of the left upper [...] a small fiber neuropathy or neurodegenerative process. There is no pathologic evidence of amyloid deposition in [...] compatible with chronic microangiopathic/small vessel ischemic change. --Serum Studies (04/17/24): Folate 23.3, B12 589, HC 11.4, MMA 137, B1 192 Interval Hx: Since their last visit, Rehan Baileysamanta reports : Over the past 2-3 weeks he reports to being very sleepy, so sleepy that even when standing he will have to sit down immediately and sleep. However, when trying to sleep at night his left arm tremor is so bothersome that he cannot sleep because of it. He is up multiple times a night due to this as well. We stopped propranolol 2 days ago due to fatigue but he is unsure if this has been helpful for him.He cannot work anymore, even with home tasks as he is so fatigued while trying to do this. He has no energy and is sleeping often during the daytime. He feels like his left arm is paralyzed and it is very difficult to move his arm. He went to his PCP and had a cervical spine MRI which was negative. In addition, several labs were ordered such as GRECIA and lyme which were all negative. He is going for a sleep study in the next 2 weeks. He is going to sleep overnight at the lab for this. He gait and balance is okay and he is not falling, but he is very careful to not fall. He cannot walk fast due to the imbalance. He does not exercise much. When going out to a store he will need to use a carriage when ambulating. Current Pertinent Medications: B12 1000mcg qdaily B1 100mg qdaily Prior Pertinent Medications: Sinemet 25-100mg 1 tab TID (530-6am, 12pm, 4-5pm) - stopped due to CND skin biopsy testing being negative (10/2023) Primidone 50mg at bedtime (stopped due to being more tired, worsening of jumping legs while sleeping, worsening of tremors) Propranolol - fatigue? Allergies Oxycodone-acetaminophen PMH: Past Medical History: Diagnosis Date History of hernia repair Kidney stones Reviewed and unchanged since previous visit. SOC: Social History Socioeconomic History Marital status: Spouse name: Not on file Number of children: Not on file Years of education: Not on file Highest education level: Not on file Occupational History Not on file Tobacco Use Smoking status: Never Smokeless tobacco: Never Vaping Use Vaping status: Never Used Substance and Sexual Activity Alcohol use: Not Currently Drug use: Never Sexual activity: Yes Other Topics Concern Not on file Social History Narrative Not on file Social Drivers of Health Financial Resource Strain: Not on file Food Insecurity: Not on file Transportation Needs: Not on file Physical Activity: Not on file Stress: Not on file Social Connections: Not on file Housing Stability: Not on file Reviewed and unchanged since previous visit. FMH: History reviewed. No pertinent family history. Reviewed and unchanged since previous visit. MEDS: Current Outpatient Medications Medication Sig Dispense Refill cyanocobalamin (VITAMIN B-12) 1000 MCG tablet Take 1 tablet (1,000 mcg total) by mouth daily. 90 tablet 3 thiamine (VITAMIN B-1) 100 mg tablet Take 1 tablet (100 mg total) by mouth daily. 90 tablet 3 No current facility-administered medications for this visit. Reviewed and unchanged since previous visit unless otherwise noted above. Review of Systems I personally reviewed the 10 Review of Systems on the form filled out by the patient. See scanned document under Media section of chart. Physical Exam Vitals: 12/13/24 1615 12/13/24 1618 BP: (!) 146/92 (!) 152/96 BP Location: Left arm Right arm Patient Position: Sitting Sitting Cuff Size: Medium (Standard) Medium (Standard) Pulse: 78 75 Weight: 97.5 kg (215 lb) Height: 1.778 m (5' 10 ) General Exam General: no apparent distress, cooperative, well developed, well nourished. NECK: Supple, full range of motion EXT: no clubbing, cyanosis, or edema Neurological Exam Mental Status Alert and oriented to person, place, time, and situation, attention span within normal limits, concentration intact, fund of knowledge appropriate. Language: fluency normal Movement Exam: Assessment 69 y.o. male who is here today to follow up on diagnosis and management of mixed type tremor. We discussed that for concerns of his fatigue, as we recently stopped propranolol only yesterday itis still too soon to determine if coming off of this medication will help with this. In addition, considering other medications to help with tremor could also contribute to fatigue as they mainly work by depressing the METAL SANDER. We reviewed his recent cervical MRI as well as lab work ordered by his PCP which was unremarkable. Also we discussed how exposure to heavy metals would most likely show accumulation on the brain, but yet his most recent MRI brain does not show this. The curious part is that he appears Parkinsonian but yet his SYNONE biopsy was negative in October 2023. We are wondering if the SYNONE test may have been a false negative and as such will prescribe amantadine 100mg BID and see if this helps with his symptoms. We will see him for a F/U on 03/01/2025 or sooner if needed. Plan: 1.) amantadine 100mg - 1 capsule daily for a week and then increase to twice daily dosing. F/U 03/01/2025. Janes Purvis, PERRY 12/13/2024 5:31 PM I spent a total of 40 minutes on the day of the visit. During the day of the visit, time was spent including the following: Examining the patient Chart review in preparation for the visit Documenting in the patient record Medication Reconciliation Patient seen by and plan discussed with and approved by Dr. Zee. I plan on serving as a continuing focal point as part of ongoing care for the primary diagnosis addressed in this encounter. documented in this encounter Plan of Treatment Upcoming Encounters Date Type Department Care Team (Late st Contact Info) Description 03/01/2025 9:30 AM EST Office Visit [facility] Neurology [address] [place] [address] Janes Purvis APRN [address] [place] [address] [address] [place] [address] documented as of this encounter Visit Diagnoses Diagnosis Mixed action and resting tremor- Primary documented in this encounter Care Teams Dial Maker Relationship Specialty Start Date End Date Daljit Ferro PA [address] [place] [address] PCP - General Adult Health - TYLER/SHRUTHI/JAYDEN/PERRY 12/07/24 documented as of this encounter
--- OUTSIDE RECORDS SUMMARY | 2024-12-18 21:34 | XMS_ITS | Clinical Summary ---
Author Organization [facility] Address [address] [place] [address] Care Team Providers Care Museum Tour Guide Name Role Phone Daljit Ferro Primary Care [...] mouth daily. 90 tablet 3 4 Active amantadine (SYMMETREL) 100 MG capsuleIndicat ions:Mixed action and resting tremor Take 1 capsule daily for a week and then increase to twice daily dosing. 60 capsule 1 5 Active propranolol (INDERAL) 20 MG tabletIndicati ons:Mixed action and resting tremor Take 1 tablet (20 mg total) by mouth 2 (two) times a day. 60 tablet 3 5 025 Discontinued amantadine (SYMMETREL) 100 MG capsuleIndicat ions:Mixed action and resting tremor Take 1 capsule daily for a week and then increase to twice daily dosing. 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 Thiamine deficiency 04/11/2024 B12 deficiency 04/11/2024 Vitamin D deficiency 09/14/2023 Restless leg syndrome 09/14/2023 Mixed action and resting tremor 09/14/2023 Resolved Problems Problem Noted Date Diagnosed Date Resolved Date Primary parkinsonism 09/14/2023 025 Encounters Date Type Department Care Team Description 12/13/2024 4:30 PM EDT Office Visit [facility] Neurology [address] [address] Janes Purvis APRN Mixed action and resting tremor (Primary Dx) 12/13/2024 Travel 12/07/2024 Orders Only [facility] Neurology [address] [address] Daljit Ferro PA 12/07/2024 Telephone [facility] Neurology [address] [address] Vic Zee MD 10/06/2024 Orders Only [facility] Neurology [address] [address] Vic Zee MD Mixed action and resting tremor (Primary Dx) 10/05/2024 Telephone [facility] Neurology [address] [address] aJnes Purvis APRN Medical Complaint 09/20/2024 8:10 AM EDT Office Visit [facility] Neurology [address] [address] Janes Purvis APRN Mixed action and resting [...] Orientation Heterosexual (straight) 12/12 3:46 PM EDT Last Filed Vital Signs Vital Sign Reading [...] Mass Index 30.85 12/13/2024 4:15 PM EDT Plan of Treatment Upcoming Encounters Date Type Department Care Team (Late st Contact Info) Description 03/01/2025 9:30 AM EST Office Visit [facility] Neurology [place] [address] [facility] [address] [place] [address] Janes Purvis, PERRY [address] [facility] [address] [place] [address] Health Maintenance Due Date Last Done Comments Advance Care Planning 1955 Hepatitis C Virus Screening 1955 DTaP/Tdap/Td Vaccines (1 - Tdap) 1976 Colonoscopy 2002 Pneumococcal Vaccines 50+ (1 of 1 - PCV) 07/24/2007 Zoster (Shingles) Vaccine (1 of 2) 07/24/2007 Influenza Vaccine 10/20/2024 COVID-19 Vaccine (1 - 2023-2 5 season) 2024 RSV Vaccine 60 years and old er and Patients (1 - 1-dose 75+ series) 2032 Hepatitis B Vaccines Aged Out No long er eligible based on patient's age to complete this topic Procedures Procedure Name Priority Date/Time Associated Diagnosis Comments MRI CERVICAL SPINE W/O CONTRAST Routine 11/19/2024 from Last 3 Months Results * MRI Cervical spine w/o contrast (11/19/2024) Anatomical Region Laterality Modality C-spine Magnetic Resonan ce Daljit SCOTT IMG MRI ORDERABLES Edite d Result - Final from Last 3 Months Insurance [facility] MEDICARE MEDICARE PART A & B Care Teams Museum Tour Guide Relationship Specialty Start Date End Date Daljit Ferro PA [address] [place] [address] CHRISTIAN [place] [phone] PCP - General Adult Health - PA/APNP/RIVETER HAND/PRENATAL NURSE 12/07/24
--- OUTSIDE RECORDS SUMMARY | 2024-12-18 21:34 | XMS_ITS | Encounter Summary ---
Author Organization [facility] Address [address] [place] [address] Phone Care Team Providers Care Wire Threader Name Role Phone Lisandro Stewart MD Primary Care Provider [phone] Encounter Details Date Type Department Care Team (Late st Contact Info) Description 01/24/2020 Procedure Pass [facility], Ct Scan - [address] [address] Social History Tobacco Use Types Packs/Day Years [...] on filedocumented in this encounter Care Teams Wire Threader Relationship Specialty Start Date End Date Lisandro Stewart MD [address] [place] [address] [place] [address] PCP - General Internal Medicine 01/24/20 documented as of this encounter Additional Source Comments The information contained in this document represents components of the legal health record. It is not the complete legal health record.[facility]
--- OUTSIDE RECORDS SUMMARY | 2024-12-18 21:34 | XMS_ITS | Clinical Summary ---
Author Organization [facility] Address [address] [place] [address] Phone Care Team Providers Care Business School Dean Name Role Phone Lisandro Stewart MD Primary Care Provider [phone] Allergies Active Allergy Reactions Criticality Noted Date [...] Devices Not on file Insurance CHRISTIAN Lehman [employer] [place] [id number] [employer] BENEFITS ADMINISTRATORS CHRISTIAN Lehman [employer] BENEFITS ADMINISTRATORS [place] [employer] BENEFITS ADMINISTRATORS [place] [employer] BENEFITS ADMINISTRATORS [employer] BENEFITS ADMINISTRATORS Ker[place] [employer] ADMINISTRATORS Kerwin [place] [employer] BENEFITS ADMINISTRATORS Kerwin [place] [employer] BENEFITS ADMINISTRATORS Care Teams Business [employer] Dean Relationship Specialty Start Date End Date Lisandro Stewart MD [address] [place] [address] Dr Blackwell CHRISTIAN Sheridan PCP - General Internal Medicine 01/24/20 Additional Source Comments The information contained in this document represents components of the legal health record. It is not the complete legal health record.[facility]
--- OUTSIDE RECORDS SUMMARY | 2024-12-18 21:35 | XMS_ITS | Encounter Summary ---
Author Organization [facility] Address [address] [place] [address] Care Team Providers Care Deputy County Counsel Name Role Phone Daljit Ferro Primary Care Provider + Encounter Details Date Type Department Care Team (Latest Contact Info) Description 12/13/2024 Travel Social History Tobacco Use Types Packs/Day [...] PM EDT documented as of this encounter Functional Status * Over the past 2 weeks, how often have you been bothered by any of the following problems? Question Answer Date of Assessment Author Patient Health Questionnaire -2 Score 2 12/13/2024 4:00 PM EDT Paz Ortiz MA * Question Answer Date of Assessment Author Patient Health Questionnaire -9 Score 12 12/13/2024 4:00 PM EDT Paz Ortiz MA * Question Answer Date of Assessment Author Little interest or pleasure in doing things Several days 12/13/2024 4:00 PM EDT Jose J Ortiz MA Feeling down, depressed, or hopeless Several days 12/13/2024 4:00 PM EDT Paz Ortiz MA Trouble falling or staying asleep, or [...] family down Several days 12/13/2024 4:00 PM EDPaz Richards MA Trouble concentrating on things, such as [...] way Not at all 12/13/2024 4:00 PM EDHiwot Richards MA documented as of this encounter Plan of Treatment Upcoming Encounters Date Type Department Care Team (Late st Contact Info) Description 03/01/2025 9:30 AM EST Office Visit [facility] Neurology [address] [phone] Janes Purvis, PERRY [address] [place] [phone] documented as of this encounter Visit Diagnoses Not on filedocumented in this encounter Care Teams Deputy County Counsel Relationship Specialty Start Date End Date Daljit Ferro PA [facility] [place] [address] PCP - General Adult Health - PA/APNP/EMPLOYMENT SUPERVISOR/CABLE TOOL DRILLER 12/07/24 documented as of this encounter
--- OUTSIDE RECORDS SUMMARY | 2024-12-18 21:35 | XMS_ITS | Encounter Summary ---
Author Organization [facility] Address [address] [place] [address] Care Team Providers Care Director Post Name Role Phone Daljit Ferro Primary Care Provider + Encounter Details Date Type Department Care Team (Late st Contact Info) Description 12/07/[address] [facility] Neurology [address] [phone] Daljit Ferro PA [address] [facility] [place] [phone] Social History Tobacco Use Types Packs/Day Years [...] PM EDT documented as of this encounter Plan of Treatment Upcoming Encounters Date Type Department Care Team (Late st Contact Info) Description 03/01/2025 9:30 AM EST Office Visit [facility] Neurology [address] [phone] Janes Purvis, PERRY [address] [place] [address] [place] [phone] documented as of this encounter Procedures Procedure Name Priority Date/Time Associated Diagnosis Comments MRI CERVICAL SPINE W/O CONTRAST Routine 11/19/2024 documented in this encounter Results * MRI Cervical spine w/o contrast (11/19/2024) Anatomical Region Laterality Modality C-spine Magnetic Resonan ce Daljit SCOTT IMG MRI ORDERABLES Edite d Result - Final documented in this encounter Visit Diagnoses Not on filedocumented in this encounter Care Teams Director Post Relationship Specialty Start Date End Date Daljit Ferro PA [facility] [place] [address] PCP - General Adult Health - PA/APNP/PRODUCTION FLOATER/CARPENTER PACKING 12/07/24 documented as of this encounter
--- OUTSIDE RECORDS SUMMARY | 2024-12-18 21:35 | XMS_ITS | Patient Health Record ---
Author Organization [facility] Address [address] [place] [address] Care Team Providers Care Oracle Programmer Name Role Phone Terry MONTES, Lisandro Primary [...] Problem Status W/U Status Risk Notes Problem 359184392 Colon cancer screening (Z12.11) Active confirmed Problem 39906494 Encounter for other preprocedural examination (Z01.818) Active confirmed Plan Of Treatment Future Test Test Name Order Date COLONOSCOPY 08/06/2016 Insurance Providers Payer Name Payer Address Payer Phone Subscriber Number Group Number Insured Name Patient Relationship to Insured Coverage Start Date Coverage End Date [facility] [address] [facility] [place] [place] [phone] [id number] CARMELLA CRUZ Self - patient is the insured Medical (General) History Medical History History ICD Code nephrolithiasis Surgical History Surgery Date(Month/Year) hernia repair 06/2013 left knee arthroscopy cystoscopy
--- OUTSIDE RECORDS SUMMARY | 2024-12-18 21:35 | XMS_ITS | Patient Health Record ---
[facility] Address [address] [place] [address] Care Team Providers Care Agricultural Produce Sorter Name Role Phone Terry MONTES, Lisandro Primary Care Provider David Carrillo Unavailable [phone] Reason For Referral No Information Problems Problem Type SNOMED Code ICD Code Onset Dates Problem Status W/U Status Risk Notes Problem Metatarsalgia (00165849) Metatarsalgia (726.70) Active confirmed Plan Of Treatment Pending Test Test Name Order Date X ray : Foot, right 3V 02/09/2011 Insurance Providers Payer Name Payer Address Payer Phone Subscriber Number Group Number Insured Name Patient Relationship to Insured Coverage Start Date Coverage End Date [facility] Blue Card [address] [place] [address] [phone] [id number] Rehan Trinh Self - patient is the insured
== END ==
LOC: HO.SL 20:30
PROVIDERS: PCP Physician Assistant; Visit Provider Physician Assistant Medical
DX: G47.19 Other hypersomnia (principal)
CPT/HCPCS: 95810

== ENCOUNTER → 2024-12-18 22:02 | Outpatient (BNV) | payer MEDICARE, SELFPAY | PROVIDERS: PCP Physician Assistant; Visit Provider Internal Medicine | DX: G47.33 Obstructive sleep apnea (adult) (pediatric) (principal) | CPT/HCPCS: 95810 ==

== ENCOUNTER 2025-01-12 08:23 | Outpatient (RCR) | payer MEDICARE, OTHER, SELFPAY ==
--- NOTE | 2024-12-01 10:10 | MHC.OT.EP ---
[facility] Office [address] [phone] F: [phone] F: [phone] Occupational Therapy Plan of Care Patient Name: Rehan Trinh Date of Evaluation: 12/01/24 Diagnosis: Left arm pain; tremors Pain Location: Reports anterior shoulder pain, radiates down left arm Tender to palpate over anterior shoulder Pain Score: 6 Pain Scale Used: Goodman-Urbina (Faces) Aggravating Factors: Overuse of left arm, but tries to avoid/guards and utilize right arm more Alleviating Factors: Rest, otherwise not using modalities or medications Assessment: 69 yo male with hx of tremors for two years and suspected tremors, and now diagnosed with essential tremors. He also has hx of RTC injury and now reports reoccurrence of pain and PCP questions CRPS. He is now referred for OT assessment and cont'd management. On assessment today, pt has tightness through left shoulder and tenderness in anterior shoulder, he has weakness with overhead movements and inability to reach behind back with left arm. He also has weakened left gross grasp (R 95lb L 55lb) and reports weakness, but also guarding, with heavier lifting (soda case). He does have resting and intention tremor with impaired FMC as seen through Functional Dexterity Test (R 40 sec L 65 sec) and 9 Hole Peg Test (R 35 sec L 45 sec). We will continue course of OT to work on normalizing function w/ every day activities with the goal of improving fine motor control and general hand and UE strengthening. We will discuss adaptive equipment and activity modifications as well. Frequency and Duration: The patient will be seen 1x/wk for 4 weeks Short Term Goals: Good follow through w/ participation in FMC activity challenges for HEP Pt to demo good follow through w AAROM/self PROM to left shoulder for improved range Ind w/ hand strengthening techniques Senior Living Goals: Left gross grasp > 70lb Pt to report good follow through w/ incorporation/trial of weighted techniques/equipment to reduce tremors with daily tasks Left had FDT <50 sec Pt to report ease of opening containers/using tools w/ addition of labor relations or personnel negotiator/Dysem pads Treatment Plan: Therapeutic Exercise Therapeutic Activity Home Exercise Program Neuro Re-ed Patient Education ADL Training Soft Tissue Mobilization Kinesiotaping Electronically Signed By: Vanessa Hollis, OTR/eDnise CHT Please Sign and return to therapist. Thank you once again for your referral.
--- NOTE | 2025-01-17 09:20 | MHC.OT.DC ---
[facility] Office [address] [phone] F: [phone] F: [phone] Occupational Therapy Discharge Note Patient Name: Rehan Trinh Provider: Daljit Ferro PA-C Diagnosis: Left arm pain; tremors Date of Evaluation: 12/01/24 Date of Discharge: 01/17/25 Treatments to Date: 4 Discharge Status: Achieved Goals Independent with HEP Discharge Summary: Haylee was referred to OT w/ left arm pain and tremors. He was seen for brief course of OT to develop home program and has reported slight improvements w/ FMC, movement/range and functional ability (able to do small microwave lightbulb now) but still trouble w/ small objects (small screws, etc). Reports increased UE strength and less tightness w/ active movements. Ind w/ home program, no further outpatient services needed at this time. Plan is to follow up with neurologist and orthopedic surgeon. Electronically Signed By: CONCEPCIÓN Harvey/Denise ZAPATAT Reviewed/agree with student documentation: Therapist: Please Sign and return to therapist, thank you for your referral.
== END 2025-01-17 09:20 | disposition home or self-care (01) ==
LOC: HO.OT 08:23
PROVIDERS: PCP Physician Assistant; Visit Provider Physician Assistant
DX: M79.632 Pain in left forearm (principal); R25.1 Tremor, unspecified
CPT/HCPCS: 97110; 97112; 97140; 97166

== ENCOUNTER 2025-02-08 07:59 | Outpatient (AMB) | payer MEDICARE, MEDICAID, SELFPAY ==
[2025-02-08 08:08] VITALS: BP 138/98; PULSE 86; O2SAT 98; BMI 30.7
--- NOTE | 2025-02-08 08:08 | MHC.OFFVIS ---
Vital Signs 02/08/25 08:08 Height 5 ft 10 in Weight 214 lb 5 oz BMI 30.7 BP 138/98 H Blood Pressure Location Lt brachial Position Sitting Pulse 86 Pulse Source Pulse Oximeter Pulse Oximetry (%) 98 Oxygen Delivery Method Room Air Intake Visit Reasons: 3 mo follow up Intake Note: Patient presents follow up OLIVE. PSG in chart(AHI-6, REM AHI-35, CHERI-87%. APAP 5-20). Accompanied by: Spouse Allergies moxifloxacin (From Avelox) Allergy (Mild, Verified 02/08/25 08:12) Hives acetaminophen (Percocet) Adverse Reaction (Unknown, Verified 02/08/25 08:12) vomiting oxycodone (Percocet) Adverse Reaction (Unknown, Verified 02/08/25 08:12) vomiting HPI Comments Details: 69 yo male new patient with dx of Parkinsons presents for evaluation of sleep difficulties. PMH: In [facility] he had a skin biopsy x 4 for alpha synuclein antibodies per , and it was 98% false for Parkinson. He sees Dr. Rashi Zee, [place] [facility]. He was seen by Dr. Colón and diagnosed clinically for Parkinson. PSG is c/w mild olive AHI is 6, REM AHI-35, with oxygen cheri to 87%. Will start him on APAP and monitor for compliance. Today Johana his says the l. side tremors are coarse more pronounced at rest, he is getting worse, walking to the car and getting out of the car is more challenging. Lower limb movement is difficult, shuffles his feet, as they get stuck, and he takes a long time to walk from location a to b. Stairs are challenging to navigate and he is out of breath easily. He was tried on Carbiodpa/Levodopa 25mg / 100mg Sinemet, and was unresponsive per patient, along with moderate constipation. He is now started on Amantidine 100mg po TID by his neurologist in [place]. Sleep His sleep has been fragmented for the past two years, he goes to bed at 10pm and wakes up at 2am. He goes downstairs and has OJ then one hour later will fall asleep. He snores loudly, gasps for air and his will nudge him. Denies morning headaches, bruxism, parasomnias, A/V Hallucinations, thrashing, flailing behaviors. RLS /Tremors He has tremors at rest and was diagnosed with essential tremors. He has a l.arm tremor and l. leg tremor, worse at rest and can be worse with action also. 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 hand coordination is slower. l. foot is slower, shuffling of gait, feet getting stuck to the floor, and walks slowly. He has decreased blink of face. His vision is like a kaliediscope, he sees black and white flashing lights, denies blurriness. Eyes, cataract surgery recent. Denies dysphagia, can swallow solids and liquids with ease, he denies drooling. Has constipation. Denies Urinary incontinence. Denies being off balance and falls, does not use a cane to ambulate. He has anxiety and depression and he is afraid of falls, fears falling off of ladders (phobias). Denies difficulty turning over in bed. 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 Cognitive needs: No Hearing needs: No Vision needs: Yes (Glasses) Physical Exam Vital Signs: Last Vital Signs Pulse 86 02/08/25 08:08 BP 138/98 H 02/08/25 08:08 Pulse Ox 98 02/08/25 08:08 Oxygen Delivery Method Room Air 02/08/25 08:08 BMI result Body Mass Index 30.7 Eyes Pupils: Equal, round and reactive pupils present Neuro Other: blank face and decreased blink, mild stooping, decreased hand swing, Upper extremity tremors noted. L>R Foot taps normal. FFM slow L>R. with l. arm rigidity. Gait is good, stride are normal. voice is loud able to project. General: tone normal and moves all extremities Cranial nerves: Yes Facial sensation intact/muscles of mastication intact, Yes Intact sense of smell present, Yes Equal, round and reactive pupils present, Yes Normal accommodation reflex present, Yes Normal facial strength present, Yes Midline tongue present, Yes Symmetric palate elevation present, Yes Ability to bilaterally rotate head present and Yes Ability to bilaterally elevate shoulders present Cognition (Neuro): normal cognition Gait exam (Neuro): Normal gait present Motor exam (neuro): 5/5 motor strength present throughout, Pronator motor function not present and Normal motor muscle tone present throughout Coordination: [id number] test normal Psych Appearance: grossly normal Mental Status: mental status grossly normal Speech and movement: Slowed movement present (Neuro) Affect: normal affect Attitude: cooperative Thought process: Normal thought process present Results Reviewed Results Reviewed: RDER #: [id number] MR/MR cervical spine wo con IMPRESSION: Multilevel cervical spondylosis C4 C7 pronounced at C6-7 without cord compression, cord edema and or myelopathy. Left neuroforamina narrowing C3-4 on a degenerative basis. [facility] referral by dr fraser -tremor- neuro-movement PSG is c/w mild olive AHI is 6, REM AHI-35, with oxygen cheri to 87%. Will start him on APAP and monitor for compliance. Assessment & Plan Assessment & Plan (1) Excessive daytime sleepiness: Code(s): G47.19 - Other hypersomnia Category: Medical Plan Reviewed PSG with pt will start him on apap with nasal mask and f/u with compliance. Labs to r/o deficiencies. Parkinson like disorder will monitor, pt. declines DATScan? CD/LD non responsive. Amantidine 100mg PO TID, managed by [facility] in [place]. F/u in [address] Vaca Coding Level of Care Code Est Pt Level 4 (30518) Diagnoses Excessive daytime sleepiness G47.19
--- OUTSIDE RECORDS SUMMARY | 2025-02-08 08:16 | XMS_ITS | Clinical Summary ---
Author Organization [facility] Address [address] [place] [address] Care Team Providers Care Manager Salt Name Role Phone Daljit Ferro Primary Care [...] 3 4 Active amantadine (SYMMETREL) 100 MG capsuleIndicati ons:Mixed action and resting tremor Take 1 capsule (100 mg total) by mouth 3 times a day. 270 capsule 1 5 Active amantadine (SYMMETREL) 100 MG capsuleIndicati ons:Mixed action and resting tremor Take 1 capsule daily for a week and then increase to twice daily dosing. 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 Thiamine deficiency 04/11/2024 B12 deficiency 04/11/2024 Vitamin D deficiency 09/14/2023 Restless leg syndrome 09/14/2023 Mixed action and resting tremor 09/14/2023 Resolved Problems Problem Noted Date Diagnosed Date Resolved Date Primary parkinsonism 09/14/2023 04/09/2 025 Encounters Date Type Department Care Team Description 12/13/2024 4:30 PM EDT Office Visit [facility] Neurology [address] [place] [phone] Janes Purvis APRN Mixed action and resting tremor (Primary Dx) 12/13/2024 Travel from Last 3 Months Social History [...] 12/13/2024 4:15 PM EDT Plan of Treatment Health Maintenance Due Date Last Done Comments Advance Care Planning 1955 Hepatitis C Virus Screening 1955 DTaP/Tdap/Td Vaccines (1 - Tdap) 1976 Colonoscopy 2002 Pneumococcal Vaccines 50+ (1 of 1 - PCV) 07/24/2007 Zoster (Shingles) Vaccine (1 of 2) 07/24/2007 Influenza Vaccine 10/20/2024 COVID-19 Vaccine (1 - 2023-2 5 season) 2024 RSV Vaccine 50 years and old er and Patients (1 [...] - Final from Last 3 Months Insurance [facility] MEDICARE MEDICARE PART A & B Care Teams Manager Salt Relationship Specialty Start Date End Date Daljit Ferro PA [address] [place] [address] [place] [phone] PCP - General Adult Health - PA/APNP/COASTAL/HARBOR DEFENSE OFFICER/CLERK SUPERVISOR 12/07/24
--- OUTSIDE RECORDS SUMMARY | 2025-02-08 08:16 | XMS_ITS | Patient Health Record ---
[facility] Address [address] [facility] [place] [address] Care Team Providers Care Oil Distributor Tender Name Role Phone Terry MONTES, Lisandro Primary Care Provider David Kraft Unavailable [phone] Reason For Referral No Information Problems Problem Type SNOMED Code ICD Code Onset Dates Problem Status W/U Status Risk Notes Problem Metatarsalgia (41962914) Metatarsalgia (726.70) Active confirmed Plan Of Treatment Pending Test Test Name Order Date X ray : Foot, right 3V 02/09/2011 Insurance Providers Payer Name Payer Address Payer Phone Subscriber Number Group Number Insured Name Patient Relationship to Insured Coverage Start Date Coverage End Date [facility] Blue Card [address] [place] [address] [phone] [id number] Rehan Trinh Self - patient is the insured
--- OUTSIDE RECORDS SUMMARY | 2025-02-08 08:16 | XMS_ITS | Encounter Summary ---
Author Organization [facility] Address [address] [place] [address] Phone Care Team Providers Care Bulk Receiver Name Role Phone Lisandro Stewart MD Primary Care Provider [phone] Encounter Details Date Type Department Care Team (Late st Contact Info) Description 01/24/2020 Procedure Pass [facility], Ct Scan - [address] [address] Social History Tobacco Use Types Packs/Day Years [...] on filedocumented in this encounter Care Teams Bulk Receiver Relationship Specialty Start Date End Date Lisandro Stewart MD [address] [place] [address] [place] [address] PCP - General Internal Medicine 01/24/20 documented as of this encounter Additional Source Comments The information contained in this document represents components of the legal health record. It is not the complete legal health record.[facility]
--- OUTSIDE RECORDS SUMMARY | 2025-02-08 08:16 | XMS_ITS | Clinical Summary ---
Author Organization [facility] Address [address] [place] [address] Phone Care Team Providers Care Marker Machine Name Role Phone Lisandro Stewart MD Primary Care Provider [phone] Allergies Active Allergy Reactions Criticality Noted Date [...] Devices Not on file Insurance CHRISTIAN Lehman [employer] [place] [id number] [employer] CHRISTIAN Lehman [employer] [place] [employer] [place] [employer]MINIST[employer]AT[employer] [place] [employer] [place] [employer]ENEF[employer] ADMINISTRATORS [place] [employer] Care Teams Marker Machine Relationship Specialty Start Date End Date Lisandro Stewart MD [address] [place] [address] Dr Blackwell [place] PCP - General Internal Medicine 01/24/20 Additional Source Comments The information contained in this document represents components of the legal health record. It is not the complete legal health record.[facility]
--- OUTSIDE RECORDS SUMMARY | 2025-02-08 08:16 | XMS_ITS | Patient Health Record ---
Author Organization [facility] Address [address] [place] [address] Care Team Providers Care Radiation Engineer Name Role Phone Terry MONTES, Lisandro Primary Care Provider Floyd Washington Jr Unavailable Allergies Allergen (clinical drug ingredient) Drug/Non Drug Allergy documented on EMR Reaction Allergy Type Onset Date Status acetaminophen / oxycodone Percocet Unknown Drug Allergy Active Reason For Referral No Information Medications Medication SIG (Take, Route, Frequency, Duration) Notes Start Date End Date Status Colyte with Flavor Packs 240 GM Solution Reconstituted As directed Orally Over the specified time.; Duration: 1 day(s) Active Social History Tobacco Use: Social History Observation Description Date Details (start date - stop date) Never Smoker NA - NA Social History Drugs/Alcohol: Social Info Question Answer Notes Alcohol Screen Did you have a drink containing alcohol in the past year? Yes How often did you have a drink containing alcohol in the past year? 2 to 4 times a month (2 points) How many drinks did you have on a typical day when you were drinking in the past year? 1 or 2 drinks (0 point) How often did you have 6 or more drinks on one occasion in the past year? 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 Problems Problem Type SNOMED Code ICD Code Onset Dates Problem Status W/U Status Risk Notes Problem Colon cancer screening (898895015) Colon cancer screening (Z12.11) Active confirmed Problem Pre-procedure evaluation check (139367480) Encounter for other preprocedural examination (Z01.818) Active confirmed Plan Of Treatment Future Test Test Name Order Date COLONOSCOPY 08/06/2016 Insurance Providers Payer Name Payer Address Payer Phone Subscriber Number Group Number Insured Name Patient Relationship to Insured Coverage Start Date Coverage End Date [facility] [address] [place] [phone] [id number] CARMELLA CRUZ Self - patient is the insured Medical (General) History Medical History History ICD Code nephrolithiasis Surgical History Surgery Date(Month/Year) hernia repair 06/2013 left knee arthroscopy cystoscopy
== END 2025-02-08 09:05 | disposition home or self-care (01) ==
LOC: HO.HSMS 08:00
PROVIDERS: PCP Physician Assistant; Visit Provider Physician Assistant Medical
DX: G47.19 Other hypersomnia (principal)
CPT/HCPCS: 99214

== ENCOUNTER → 2025-02-08 07:59 | Outpatient (BNVA) | payer MEDICARE, MEDICAID, SELFPAY | PROVIDERS: PCP Physician Assistant; Visit Provider Physician Assistant Medical | DX: G47.19 Other hypersomnia (principal) | CPT/HCPCS: 99212 ==